=== PATIENT | female | born 1940 | race Native Hawaiian/Other Pacific Islander ===

== ENCOUNTER → 2017-10-01 | Outpatient (CLI) | payer MEDICARE, BC | END | disposition home or self-care (01) | LOC: CPPFTMAIN 13:53 | PROVIDERS: ATTEND Family Medicine | DX: J45.909 Unspecified asthma, uncomplicated (principal) | CPT/HCPCS: 80061; 84450; 84460; 94060; 94726; 94729 ==

== ENCOUNTER → 2018-03-18 | Outpatient (CLI) | payer MEDICARE, BC, OTHER ==
[~2018-03-18] MED LIST: REGADENOSON 0.4 MG/5 ML SYRINGE IV ONE
--- NOTE | 2018-03-18 12:41 | NM ---
EXAMINATION TYPE: NM stress lexiscan cardiolite DATE OF EXAM: 03/18/2018 COMPARISON: Previous exam 05/05/2010 HISTORY: Atypical chest pain TECHNIQUE: After the intravenous administration of 10.14 mCi Tc 99m Sestamibi - Cardiolite resting S PECT images acquired 45 minutes post injection. The patient received 0.4mg Lexiscan, 25.7 mCi Tc 99m Sestamibi - Stress images obtained [address] injection FINDINGS: Review of stress and rest SPECT images demonstrates some decreased reaffirms of uptake at the level o f the septum on stress as compared to rest images towards the base of the heart. Gated analysis shows normal wall motion with an estimated left ventricular ejection fraction of 59 %. IMPRESSION: Findings suggest pharmacologically induced left ventricular myocardial ischemia. A Yellow level critical message alert has been initiated for Jennifer Chiang MD via the [employer] Critical Results System on 03/18/2018 12:38 PM. This message alert has been sent to Jennifer reynolds MD via the preferences provided by the clinician for the receipt of Radiology Critical Finding s. Message ID [id number].
--- NOTE | 2018-03-19 09:10 | EST ---
EXERCISE STRESS AGE: 77 SEX: F HT: 4'10" WT: 200 PROTOCOL: Lexiscan. STAGE: DURATION OF EXERCISE: HEART RATE REST: 133/75 BLOOD PRESSURE REST: 123/75 MAXIMUM HEART RATE ACHIEVED: 71 MAXIMUM BLOOD PRESSURE: 123/75 85% MPHR: 120 100% MPHR: 141 METS: INDICATIONS: Chest pain. CLINICAL INFORMATION: STRESS DATA: Pretesting physical examination showed a heart rate of 51, pressure is 123/75 mmHg. Baseline EKG shows sinus mechanism. 0.4 mg of Lexiscan was given over 15 seconds per protocol. The max heart rate was 71 beats per minute and maximum pressure was 123/75 mmHg. Clinically the patient did not have any symptoms of chest pain or discomfort and the EKG did not show any significant ST or T-wave abnormalities concerning for ischemia. CONCLUSION: 1. Nondiagnostic electrocardiogram stress testing in response to Lexiscan. 2. Please follow up on the Cardiolite portion on separate report from radiology department. MMODL / IJN: [id number] /
--- NOTE | 2018-03-19 13:21 | ECHOF ---
Referral Reason:R07.89 Atypical chest pain MEASUREMENTS -------- HEIGHT: 127.0 cm WEIGHT: 88.9 kg BP: IVSd: 1.0 cm (0.6 - 1.1) LVIDd: 3.6 cm (3.9 - 5.3) LVPWd: 1.0 cm (0.6 - 1.1) IVSs: 1.4 cm LVIDs: 2.7 cm LVPWs: 1.2 cm LA Diam: 3.0 cm (2.7 - 3.8) MV EXCURSION: 12.495 mm (> 18.000) MV EF SLOPE: 57 mm/s (70 - 150) EPSS: 1.4 cm MV E Kuldeep: 0.56 m/s MV DecT: 345 ms MV A Kuldeep: 0.87 m/s MV E/A Ratio: 0.64 RAP: 5.00 mmHg RVSP: 11.86 mmHg FINDINGS -------- Sinus rhythm. This was a techncally difficult study with suboptimal views, , Lumason utilized for enhancement of im ages. The left ventricular size is normal. Left ventricular wall thickness is normal. Overall left vent ricular systolic function is normal with, an EF between 55 - 60 %. The right ventricle is normal in size. The left atrial size is normal. The right atrial size is normal. 5.0mg OF Lumason UTLIZED: 2 OR MORE WALL SEGMENTS NOT VISUALIZED. There is mild aortic valve sclerosis. There is no evidence of aortic regurgitation. Mild mitral annular calcification present. Mild mitral regurgitation is present. There is no evidence of pulmonary hypertension. The right ventricular systolic pressure, as measure d by Doppler, is 11.86mmHg. There is no pulmonic regurgitation present. The aortic root size is normal. Echo free space represents a pericardial fat pad. CONCLUSIONS -------- 1. This was a techncally difficult study with suboptimal views, , Lumason utilized for enhancement of images. 2. The left ventricular size is normal. 3. Left ventricular wall thickness is normal. 4. Overall left ventricular systolic function is normal with, an EF between 55 - 60 %. 5. The right ventricle is normal in size. 6. The left atrial size is normal. 7. The right atrial size is normal. 8. 5.0mg OF Lumason UTLIZED: 2 OR MORE WALL SEGMENTS NOT VISUALIZED. 9. There is mild aortic valve sclerosis. 10. Mild mitral annular calcification present. 11. Mild mitral regurgitation is present. 12. There is no evidence of pulmonary hypertension. 13. The right ventricular systolic pressure, as measured by Doppler, is 11.86mmHg. 14. There is no pulmonic regurgitation present. 15. The aortic root size is normal. 16. Echo free space represents a pericardial fat pad. REVENUE FIELD AUDITOR: Odilia Handley RDCS
== END | disposition home or self-care (01) ==
LOC: RADNMMAIN 07:59
PROVIDERS: ATTEND Family Medicine
DX: I34.0 Nonrheumatic mitral (valve) insufficiency (principal); I35.8 Other nonrheumatic aortic valve disorders; R07.89 Other chest pain; Z88.0 Allergy status to penicillin; Z88.2 Allergy status to sulfonamides; Z88.8 Allergy status to other drugs, medicaments and biological substances
CPT/HCPCS: 93017; 78452; C8929; A9500; J2785; Q9950; 93306

== ENCOUNTER 2018-04-09 06:23 | Day surgery (SDC) | payer MEDICARE, BC, OTHER ==
[~2018-04-09 06:23] MED LIST changes: +ALPRAZolam 0.25 MG TAB PO PRN; +ALPRAZolam 0.5 MG TAB PO PRN; +ASPIRIN 325 MG TAB PO STA; +ATORVASTATIN 80 MG TAB PO STA; +NITROGLYCERIN SL TABS 0.4 MG TAB SUBLINGUAL PRN; -REGADENOSON 0.4 MG/5 ML SYRINGE IV ONE; +SODIUM CHLORIDE 0.9% 1,000 ML in EMPTY BAG 1 BAG IV ONE
[2018-04-09] MEDS ORDERED: diphenhydrAMINE 50 MG/ML 1 ML VIAL ONE (07:05)
[2018-04-09] MEDS ORDERED: MIDAZOLAM 2 MG/2 ML VIAL ONE (07:05)
[2018-04-09] MEDS ORDERED: LIDOCAINE 1% INJ 10MG/ML (20 ML MDV) ONE (07:05)
[2018-04-09] MEDS ORDERED: LIDOCAINE 1% INJ 10MG/ML (20 ML MDV) SQ ONE (07:27)
[2018-04-09] MEDS ORDERED: MIDAZOLAM 2 MG/2 ML VIAL IV ONE (07:28)
[2018-04-09] MEDS ORDERED: diphenhydrAMINE 50 MG/ML 1 ML VIAL IVP ONE (07:28)
[2018-04-09] MEDS ORDERED: IOPAMIDOL-370 100ML BTL INJ ONE ×2 (07:43)
[2018-04-09] MEDS ORDERED: RX INFO: IV CONTRAST WAS GIVEN 1 EACH MISC MISCELLANE PRN (07:56)
[2018-04-09] MEDS ORDERED: SODIUM CHLORIDE 0.9% 1,000 ML IV SCH (08:00)
[2018-04-09 08:34] VITALS: RESP 18; TEMP 97.4
[2018-04-09 08:35] VITALS: BMI 41.0
--- NOTE | 2018-04-09 08:39 | CC ---
CARDIAC CATHETERIZATION REPORT DATE OF SERVICE: 04/09/2018 PROCEDURE: Left heart catheterization and coronary angiography. PERFORMED BY: Dr. Pepe Banerjee. Moderate conscious sedation, time was 22 minutes. CLINICAL INFORMATION: Mrs. De Los Santos is a 77-year-old lady with a known history of hypertension and hyperlipidemia, who has been having exertional shortness of breath and chest tightness. Her primary care physician, Dr. Jennifer Chiang, performed a stress test which revealed evidence of a moderate-sized ischemia and this was a Lexiscan stress test. The ischemia involved interventricular septum as well as the lateral wall. In view of this, she was advised cardiac catheterization. Risks, benefits, options, rationale were explained to the patient and family. PROCEDURE NOTE: Under local anesthesia and strict aseptic precautions, a 6-Libyan introducer was placed in the right femoral artery. Using standard Alexander catheters, I performed coronary angiography and a pigtail catheter was used to check pressures. LV gram was not performed. By echocardiogram, ejection fraction was 55% without pulmonary hypertension. The patient tolerated the procedure well. An Angio-Seal device was used to secure hemostasis and she was sent to the room in a stable condition. CARDIAC CATHETERIZATION FINDINGS: The left ventricle end-diastolic pressure was 22 mmHg and there was no gradient across the aortic valve. CORONARY ANGIOGRAPHY FINDINGS: RIGHT CORONARY ARTERY: Technically a dominant vessel has minor irregularities no significant disease. Proximally, there is about a 30% to 35% narrowing. In the midportion there is another 40% area of narrowing, but no critical stenosis detected. The mid RCA lesion is 40% and distally it gives off a larger PDA, smaller PLV, which have minor irregularities. The RCA therefore dominant has a 40% mid lesion. LEFT MAIN CORONARY ARTERY: This is a long patent disease-free vessel with mild calcification that bifurcates into LAD and circumflex. LEFT ANTERIOR DESCENDING CORONARY ARTERY: Good caliber vessel extends along the anterior wall gives off several septal and diagonal branches. In the proximal portion, gives off a diagonal branch that divides into 2 branches supplies a fair amount of myocardium and then the caliber of the LAD decreases and it sort of becomes intramyocardial giving off septal branches and distally comes out as a small branch that barely reaches the apex. LAD therefore has a good-sized diagonal branch that is free of significant disease. The distal LAD has diffuse noncritical disease and is not a large distribution vessel, but gives off several septal branches that have minor irregularities. LEFT POSTERIOR CIRCUMFLEX CORONARY ARTERY: Technically a nondominant vessel gives off a single obtuse marginal that distally continues as a secondary branch and also gives off a PLV branch. The circumflex has minor irregularities and the PLV branch comes off from the circumflex has no significant disease other than minor irregularities. LEFT VENTRICULOGRAM: This was not performed. FINAL IMPRESSION: This patient has calcified coronary arteries, a right-dominant system, elevated filling pressures, but no significant obstructive disease. There is a 40% mid RCA lesion and there is some diffuse disease in the distal LAD, but no significant lesions are noted. Filling pressures are however elevated. RECOMMENDATIONS: I am recommending that we continue current medical regimen. Her elevated filling pressures could be related to hypertensive heart disease. I will consider adding a small dose of Aldactone as an outpatient. But for now she will be discharged in the next 6 to 7 hours if she is stable and ambulatory and I will see her in the office on April 18. Continued medical therapy with risk factor modification is advised and patient does not have any significant obstructive CAD. MMODL / IJN: [id number] /
--- NOTE | 2018-04-09 08:39 | LTR ---
April 09, 2018 Re: Scotty De Los Santos Dear Dr. Chiang; Thank you for the opportunity to participate in the care of Mrs Scotty De Los Santos. Please find enclosed my cardiac cath report for your records. This lady has calcified coronary arteries with noncritical disease and a moderate 40% mid RCA lesion. Continued medical therapy with risk factor modification is advised. Her left ventricle end-diastolic pressure is elevated, this may reflect some diastolic dysfunction and hypertensive heart disease and I will consider adding a small dose of Aldactone after I see her in the office. Her creatinine is at the upper end of normal range. Thank you for your referral and please call for questions. With kindest regards. Sincerely yours, MD TOM Franks / MAICOLN: [id number] /
[2018-04-09 12:17] VITALS: BP 134/60; PULSE 57
== END 2018-04-09 15:15 | disposition home or self-care (01) ==
LOC: CATHCVL 06:23 → 3OBS 07:50 → CATHCVL 15:15
PROVIDERS: ATTEND Internal Medicine Interventional Cardiology
DX: I25.10 Atherosclerotic heart disease of native coronary artery without angina pectoris (principal); I25.84 Coronary atherosclerosis due to calcified coronary lesion; I10 Essential (primary) hypertension; F17.210 Nicotine dependence, cigarettes, uncomplicated; E78.5 Hyperlipidemia, unspecified; Z82.49 Family history of ischemic heart disease and other diseases of the circulatory system; E03.9 Hypothyroidism, unspecified; M17.0 Bilateral primary osteoarthritis of knee; E78.00 Pure hypercholesterolemia, unspecified; Z79.82 Long term (current) use of aspirin; Z79.890 Hormone replacement therapy; Z79.899 Other long term (current) drug therapy; Z88.0 Allergy status to penicillin; Z88.2 Allergy status to sulfonamides
CPT/HCPCS: 93458; C1760; C1894; C1769 ×2; J2250; J1200; J2001; Q9967

== ENCOUNTER → 2018-08-18 | Outpatient (CLI) | payer MEDICARE, BC, OTHER ==
[2018-08-18 19:10] LABS: Anion Gap 9.3 mmol/L (4.00-12.00); Calcium 9.5 mg/dL (8.7-10.3); Carbon Dioxide 26.7 mmol/L (21.6-31.8); Potassium 4.4 mmol/L (3.5-5.5)
== END | disposition home or self-care (01) ==
LOC: LABWHC1 13:42
PROVIDERS: ATTEND Internal Medicine Interventional Cardiology
DX: I25.10 Atherosclerotic heart disease of native coronary artery without angina pectoris (principal)
CPT/HCPCS: 36415; 80048

== ENCOUNTER → 2018-09-22 | Outpatient (CLI) | payer MEDICARE, BC, OTHER ==
[2018-09-22 22:00] LABS: Anion Gap 9.5 mmol/L (4.00-12.00); Calcium 9.8 mg/dL (8.7-10.3); Carbon Dioxide 30.5 mmol/L (21.6-31.8); Potassium 3.9 mmol/L (3.5-5.5)
== END | disposition home or self-care (01) ==
LOC: LABWHC1 10:05
PROVIDERS: ATTEND Internal Medicine Interventional Cardiology
DX: R60.0 Localized edema (principal)
CPT/HCPCS: 36415; 80048

== ENCOUNTER 2018-11-26 12:27 | Inpatient (IN) | payer MEDICARE, BC, OTHER ==
[2018-11-26] MEDS ORDERED: SODIUM CHLORIDE 0.9% 1,000 ML IV ONE ×2 (13:04)
[2018-11-26] MEDS ORDERED: MORPHINE SULFATE 4 MG/ML SYRINGE IVP STA (13:08)
--- NOTE | 2018-11-26 13:10 | ED ---
Fall HPI - General Source: EMS, RN notes reviewed, old records reviewed Mode of arrival: EMS <Val Valdez - Last Filed: 11/26/18 16:34> <Gold Fernando - Last Filed: 11/26/18 16:37> - General Chief Complaint: Fall Stated Complaint: Fall Time Seen by Provider: 11/26/18 12:31 - History of Present Illness Initial Comments: Patient is an 78-year-old female who presents emergency department today complains of falling on Saturday. Patient reports that she stepped on a back load tester, became startled fell to the ground. She cleans of bruising over her inner thighs and her arms. She attempted to crawl. Patient reports that she laid on the floor Saturday evening. Patient states the [employer] caregiver called her daughter who came to check on her. She fell and was unable to get up. Patient reports that she's having some back pain and landed on her back for the past 3 days. Patient states that she soiled herself. (Val Valdez) - Related Data Home Medications Medication Instructions Recorded Confirmed Albuterol Sulfate [Proair Hfa] 1 - 2 puff INHALATION RT-Q6H PRN 04/04/18 11/26/18 Atorvastatin [Lipitor] 20 mg PO DAILY 04/04/18 11/26/18 Bimatoprost [Lumigan .01% Ophth 1 drop BOTH EYES HS 04/04/18 11/26/18 Soln] Brimonidine Tartrate [Alphagan P 1 drops RIGHT EYE QAM 04/04/18 11/26/18 0.2% Ophth Soln] Cholecalciferol (Vitamin D3) 2,000 unit PO DAILY 04/04/18 11/26/18 [Vitamin D3] Dorzolamide HCl/Pf [Dorzolamide 2% 1 drop RIGHT EYE BID 04/04/18 11/26/18 Eye Drop] Levothyroxine Sodium [Synthroid] 75 mcg PO DAILY 04/04/18 11/26/18 Lidocaine 5% Patch [Lidoderm 5% 1 patch TOPICAL DAILY 04/04/18 11/26/18 Patch] Omeprazole [PriLOSEC] 40 mg PO DAILY 04/04/18 11/26/18 PARoxetine HCL 40 mg PO DAILY 04/04/18 11/26/18 Vits A,C,E/Lutein/Minerals 1 tab PO DAILY 04/04/18 11/26/18 [Ocuvite with Lutein Tablet] Zinc 50 mg PO DAILY 04/04/18 11/26/18 cycloSPORINE [Restasis] 1 applicator BOTH EYES BID PRN 04/04/18 11/26/18 Folic Acid 0.4 mg PO DAILY 11/26/18 11/26/18 Magnesium Oxide [Magox 400] 400 mg PO DAILY 11/26/18 11/26/18 Spironolactone [Aldactone] 25 mg PO DAILY 11/26/18 11/26/18 Turmeric Root Extract [Turmeric] 500 mg PO DAILY 11/26/18 11/26/18 buPROPion HCL [buPROPion HCL SR] 150 mg PO BID 11/26/18 11/26/18 metFORMIN HCL [Glucophage] 500 mg PO BID 11/26/18 11/26/18 Allergies Allergy/AdvReac Type Severity Reaction Status Date / Time Penicillins Allergy Rash/Hives Verified 11/26/18 13:59 Sulfa (Sulfonamide Allergy Rash/Hives Verified 11/26/18 13:59 Antibiotics) Review of Systems ROS Other: All systems not noted in ROS Statement are negative. <Val Valdez - Last Filed: 11/26/18 16:34> ROS Other: All systems not noted in ROS Statement are negative. <Gold Fernando - Last Filed: 11/26/18 16:37> ROS Statement: Those systems with pertinent positive or pertinent negative responses have been documented in the HPI. Past Medical History Past Medical History: Chest Pain / Angina, CVA/TIA, Diabetes Mellitus, Eye Disorder, GERD/Reflux, Hypertension, Osteoarthritis (OA), Thyroid Disorder Additional Past Medical History / Comment(s): glaucoma, blind left eye, states hx of silent TIA's, elva knee pain, hernia History of Any Multi-Drug Resistant Organisms: None Reported Past Surgical History: Back Surgery, Orthopedic Surgery Additional Past Surgical History / Comment(s): back metal/screws, eye sx for glaucoma, rt carpal tunnel, removal of benign cyst on ovary Past Anesthesia/Blood Transfusion Reactions: No Reported Reaction Past Psychological History: Anxiety, Depression Smoking Status: Former smoker Past Alcohol Use History: Rare Past Drug Use History: None Reported, Marijuana <Val Valdez - Last Filed: 11/26/18 16:34> General Exam Limitations: physical limitation General appearance: alert, in no apparent distress Head exam: Present: atraumatic, normocephalic, normal inspection Eye exam: Present: normal appearance, PERRL, EOMI. Absent: scleral icterus, conjunctival injection, periorbital swelling ENT exam: Present: normal exam, mucous membranes moist Neck exam: Present: normal inspection. Absent: tenderness, meningismus, l ymphadenopathy Respiratory exam: Present: normal lung sounds bilaterally. Absent: respiratory distress, wheezes, rales, rhonchi, stridor Cardiovascular Exam: Present: regular rate, normal rhythm GI/Abdominal exam: Present: soft, normal bowel sounds. Absent: distended, tenderness, guarding, rebound, rigid Extremities exam: Present: normal inspection, full ROM, normal capillary refill, other (Contusion noted over the right forearm. Small contusions over bilateral knees. She is full range motion about extremities.). Absent: tenderness, pedal edema, joint swelling, calf tenderness Back exam: Present: normal inspection Neurological exam: Present: alert, oriented X3, CN II-XII intact <Val Valdez - Last Filed: 11/26/18 16:34> - General Exam Comments Initial Comments: This is a generally weak 78-year-old female. Alert. No significant distress. (Val Valdez) Course Vital Signs 11/26/18 11/26/18 12:37 15:11 Temperature 100.3 F H Pulse Rate 94 79 Respiratory 18 18 Rate Blood Pressure 122/72 125/62 O2 Sat by Pulse 97 96 Oximetry Medical Decision Making - Lab Data Result diagrams: 11/26/18 13:10 11/26/18 13:10 - Radiology Data Radiology results: report reviewed <Val Valdez - Last Filed: 11/26/18 16:34> - Lab Data Result diagrams: 11/26/18 13:10 11/26/18 13:10 <Gold Fernando - Last Filed: 11/26/18 16:37> - Medical Decision Making Patient is an 78-year-old female who presents MRSA Department after a fall on Saturday. She laid on the ground the small space for the past 3-1/2 days. At this time Patient arrived to emergency Department after her daughter found her. Patient appears dehydrated. Patient has been given IV fluids labwork obtained. 2+ ketones in urine. CK is mildly elevated 800. Patient complains of some back pain. She is no significant contusion or ulcerations noted. At this time Patient will be admitted under Dr. Niño for IV hydration. She did have a low-grade temperature of 100.3. A did give the Patient 1 g of Rocephin at this time. Initially suspected the possibility of urinary tract infection she's been sitting and soiled clothes for the past 4 days. Urinalysis didn't show signs of infection. Chest x-ray was otherwise unremarkable. Patient does complain of back pain. X-rays of the thoracic and lumbar spinal be completed. (Val Valdez) Patient reevaluated by myself, status post fall with prolonged downtime, approximately 4 days. Patient appears dehydrated, laboratory studies do reflect dehydration with lactic acidosis as well as 2+ ketones on urinalysis. Case discussed with Dr. Niño, [facility] - Lab Data Lab Results 11/26/18 11/26/18 11/26/18 Range/Units 13:10 13:10 13:10 WBC 8.5 (3.8-10.6) k/uL RBC 4.40 (3.80-5.40) m/uL Hgb 13.2 (11.4-16.0) gm/dL Hct 40.6 (34.0-46.0) % MCV 92.3 (80.0-100.0) fL MCH 30.1 (25.0-35.0) pg MCHC 32.6 (31.0-37.0) g/dL RDW 13.3 (11.5-15.5) % Plt Count 214 (150-450) k/uL Neutrophils % 83 % Lymphocytes % 9 % Monocytes % 6 % Eosinophils % 1 % Basophils % 0 % Neutrophils # 7.1 (1.3-7.7) k/uL Lymphocytes # 0.8 L (1.0-4.8) k/uL Monocytes # 0.5 (0-1.0) k/uL Eosinophils # 0.1 (0-0.7) k/uL Basophils # 0.0 (0-0.2) k/uL PT 9.7 (9.0-12.0) sec INR 0.9 (<1.2) APTT 23.4 (22.0-30.0) sec Sodium 137 (137-145) mmol/L Potassium 4.2 (3.5-5.1) mmol/L Chloride 104 (98-107) mmol/L Carbon Dioxide 21 L (22-30) mmol/L Anion Gap 12 mmol/L BUN 20 H (7-17) mg/dL Creatinine 0.85 (0.52-1.04) mg/dL Est GFR (CKD-EPI)AfAm 75 (>60 ml/min/1.73 sqM) Est GFR (CKD-EPI)NonAf 65 (>60 ml/min/1.73 sqM) Glucose 160 H (74-99) mg/dL Plasma Lactic Acid Andi (0.7-2.0) mmol/L Calcium 9.1 (8.4-10.2) mg/dL Total Bilirubin 1.3 (0.2-1.3) mg/dL AST 59 H (14-36) U/L ALT 37 (9-52) U/L Alkaline Phosphatase 108 (38-126) U/L Creatine Kinase 865 H (30-135) U/L Troponin I (0.000-0.034) ng/mL Total Protein 6.8 (6.3-8.2) g/dL Albumin 3.9 (3.5-5.0) g/dL Urine Color Urine Appearance (Clear) Urine pH (5.0-8.0) Ur Specific [place] (1.001-1.035) Urine Protein (Negative) Urine Glucose (UA) (Negative) Urine Ketones (Negative) Urine Blood (Negative) Urine Nitrite (Negative) Urine Bilirubin (Negative) Urine Urobilinogen (<2.0) mg/dL Ur Leukocyte Esterase (Negative) 11/26/18 11/26/18 11/26/18 Range/Units 13:10 13:10 14:46 WBC (3.8-10.6) k/uL RBC (3.80-5.40) m/uL Hgb (11.4-16.0) gm/dL Hct (34.0-46.0) % MCV (80.0-100.0) fL MCH (25.0-35.0) pg MCHC (31.0-37.0) g/dL RDW (11.5-15.5) % Plt Count (150-450) k/uL Neutrophils % % Lymphocytes % % Monocytes % % Eosinophils % % Basophils % % Neutrophils # (1.3-7.7) k/uL Lymphocytes # (1.0-4.8) k/uL Monocytes # (0-1.0) k/uL Eosinophils # (0-0.7) k/uL Basophils # (0-0.2) k/uL PT (9.0-12.0) sec INR (<1.2) APTT (22.0-30.0) sec Sodium (137-145) mmol/L Potassium (3.5-5.1) mmol/L Chloride (98-107) mmol/L Carbon Dioxide (22-30) mmol/L Anion Gap mmol/L BUN (7-17) mg/dL Creatinine (0.52-1.04) mg/dL Est GFR (CKD-EPI)AfAm (>60 ml/min/1.73 sqM) Est GFR (CKD-EPI)NonAf (>60 ml/min/1.73 sqM) Glucose (74-99) mg/dL Plasma Lactic Acid Andi 2.2 H* (0.7-2.0) mmol/L Calcium (8.4-10.2) mg/dL Total Bilirubin (0.2-1.3) mg/dL AST (14-36) U/L ALT (9-52) U/L Alkaline Phosphatase (38-126) U/L Creatine Kinase (30-135) U/L Troponin I 0.013 (0.000-0.034) ng/mL Total Protein (6.3-8.2) g/dL Albumin (3.5-5.0) g/dL Urine Color Yellow Urine Appearance Clear (Clear) Urine pH 7.0 (5.0-8.0) Ur Specific [place] 1.019 (1.001-1.035) Urine Protein Trace H (Negative) Urine Glucose (UA) Negative (Negative) Urine Ketones 2+ H (Negative) Urine Blood Negative (Negative) Urine Nitrite Negative (Negative) Urine Bilirubin Negative (Negative) Urine Urobilinogen <2.0 (<2.0) mg/dL Ur Leukocyte Esterase Negative (Negative) 11/26/18 15:41 EKG performed at 2151 shows sinus rhythm with occasional PVCs otherwise normal EKG. 90 bpm. NC interval is 152 ms. QS duration 72 ms. QT QTc is 390/477 ms. (Val Valdez) - Radiology Data CT shows chronic changes and cut him medically without suspicious infiltrate. CT shows no acute hemorrhage or midline shift. Mild diffuse age-related cerv ical atrophy noted. (Val Valdez) Disposition Is patient prescribed a controlled substance at d/c from ED?: No Time of Disposition: 16:36 <Val Valdez - Last Filed: 11/26/18 16:34> <Gold Fernando - Last Filed: 11/26/18 16:37> Clinical Impression: Fall, Dehydration Disposition: ADMITTED IP TO THIS HOSP Condition: Stable Referrals: Jennifer Chiang MD [Primary Care Provider] - 1-2 days
[2018-11-26 13:36] LABS: Basophils % (A) 0 %; Eosinophils # (A) 0.1 k/uL (0-0.7); Eosinophils % (A) 1 %; HCT 40.6 % (34.0-46.0); HGB 13.2 gm/dL (11.4-16.0); Lymphocytes # (A) 0.8 k/uL (1.0-4.8); Lymphocytes % (A) 9 %; MCH 30.1 pg (25.0-35.0); MCHC 32.6 g/dL (31.0-37.0); MCV 92.3 fL (80.0-100.0); Mean Platelet Volume 7.2; Monocytes # (A) 0.5 k/uL (0-1.0); Monocytes % (A) 6 %; Neutrophils # (A) 7.1 k/uL (1.3-7.7); Neutrophils % (A) 83 %; Platelet Count 214 k/uL (150-450); RDW 13.3 % (11.5-15.5); WBC 8.5 k/uL (3.8-10.6)
[2018-11-26 13:42] LABS: INR 0.9 (<1.2); Partial Thromboplastin Time 23.4 sec (22.0-30.0); Prothrombin Time 9.7 sec (9.0-12.0)
[2018-11-26 13:45] LABS: Albumin 3.9 g/dL (3.5-5.0); Calcium 9.1 mg/dL (8.4-10.2); Total Bilirubin 1.3 mg/dL (0.2-1.3); Total Protein 6.8 g/dL (6.3-8.2)
[2018-11-26 13:47] LABS: Potassium 4.2 mmol/L (3.5-5.1)
[2018-11-26] MEDS ORDERED: cefTRIAXone IN SWFI 1,000 MG/10 ML SYRINGE IVP STA (14:07)
--- NOTE | 2018-11-26 14:07 | CT ---
EXAMINATION TYPE: CT brain wo con DATE OF EXAM: 11/26/2018 HISTORY: Fall injury with headache. CT DLP: 1086.4 mGycm. Automated Exposure Control for Dose Reduction was Utilized. TECHNIQUE: CT scan of the head is performed without contrast. COMPARISON: None. FINDINGS: There is no acute intracranial hemorrhage or midline shift identified. There is diffuse v entricular and sulcal prominence consistent with diffuse age-related cerebral atrophy. Chung white ma tter differentiation is maintained. Nasal septum is deviated to left of midline. The globes are int act and the visualized sinuses are clear. Vascular calcification is seen distal internal carotid art eries. IMPRESSION: No acute intracranial hemorrhage or midline shift. There is mild diffuse age-related ce rebral atrophy noted.
[2018-11-26 14:56] LABS: Appearance,Urine Clear (Clear); Bilirubin,Urine Negative (Negative); Blood,Urine Negative (Negative); Color,Urine Yellow; Glucose,Urine (UA) Negative (Negative); Ketones,Urine 2+ (Negative); Leukocyte Esterase,Urine Negative (Negative); Nitrite,Urine Negative (Negative); Protein,Urine Trace (Negative); Specific Gravity,Urine 1.019 (1.001-1.035); Urobilinogen,Urine <2.0 mg/dL (<2.0)
[2018-11-26] MEDS ORDERED: ACETAMINOPHEN TAB 500 MG TAB PO STA (15:01)
[2018-11-26] MEDS ORDERED: ACET/COD 300 MG/30 MG STARTER PACK 6 TAB BTL PO STA (15:01)
--- NOTE | 2018-11-26 15:04 | XR ---
EXAMINATION TYPE: XR chest 2V DATE OF EXAM: 11/26/2018 COMPARISON: NONE HISTORY: Fall injury with weakness and pain TECHNIQUE: Frontal and lateral views of the chest are obtained. FINDINGS: There is chronic parenchymal change suspected bilaterally with anterior right mid lung ate lectasis on lateral view. No pleural effusion or pneumothorax is appreciated bilaterally. The cardiac silhouette size is enlarged with atherosclerotic and ectatic aorta causing tracheal deviation to the right. The osseous structures are somewhat demineralized. IMPRESSION: Chronic changes and cardiomegaly without suspicious acute infiltrate.
--- NOTE | 2018-11-26 16:36 | XR ---
PROCEDURE: XR pelvis AP view - 1V DATE AND TIME: 11/26/2018 4:31 PM CLINICAL INDICATION: PHH; Pain TECHNIQUE: AP view COMPARISON: None FINDINGS: There is no fracture or malalignment. The soft tissues are unremarkable. IMPRESSION: NO ACUTE PROCESS.
[2018-11-26] MEDS ORDERED: HYDROmorphone 0.5 MG/0.5 ML SYRINGE IVP PRN (16:37)
[2018-11-26] MEDS ORDERED: IBUPROFEN 400 MG TAB PO PRN (16:37)
[2018-11-26] MEDS ORDERED: MORPHINE SULFATE 4 MG/ML SYRINGE IV PRN (16:37)
[2018-11-26] MEDS ORDERED: NALOXONE 0.4 MG/ML 1 ML VIAL IV PRN (16:37)
[2018-11-26] MEDS ORDERED: ACETAMINOPHEN TAB 325 MG TAB PO PRN (16:37)
[2018-11-26] MEDS ORDERED: ONDANSETRON 4 MG/2 ML VIAL IVP PRN (16:37)
--- NOTE | 2018-11-26 16:40 | XR ---
PROCEDURE: XR lumbar spine 2V DATE AND TIME: 11/26/2018 4:31 PM CLINICAL INDICATION: PHH; Pain TECHNIQUE: AP and crosstable lateral views COMPARISON: None FINDINGS: There is no fracture or malalignment. The pedicle fixation orthopedic L4-5 hardware is intact. No periprosthesis lucency. Lumbar spondylosis changes are noted at all levels, perhaps most advanced at the L3-4 level. The soft tissues are unremarkable. IMPRESSION: NO ACUTE PROCESS.
--- NOTE | 2018-11-26 16:45 | XR ---
PROCEDURE: XR thoracic spine 2V DATE AND TIME: 11/26/2018 4:31 PM CLINICAL INDICATION: PHH; Pain TECHNIQUE: AP and crosstable lateral views COMPARISON: None FINDINGS: The frontal radiograph is RPO rotated. There is no fracture or malalignment. No pneumothorax. Paraspinal soft tissues unremarkable. IMPRESSION: Negative for fracture or malalignment.
[2018-11-26] MEDS ORDERED: IPRATROPIUM-ALBUTEROL 3 ML NEB INHALATION PRN (18:15)
[2018-11-26] MEDS: SODIUM CHLORIDE 0.9% 1,000 ML IV SCH (18:21)
--- NOTE | 2018-11-26 18:25 | P.HPIM ---
History of Present Illness H&P Date: 11/26/18 Chief Complaint: fall at home 78-year-old female with history of hypothyroid, multiple TIAs, diabetes mellitus on metformin, hypertension. Patient lives alone, it seems like she sustained a mechanical fall on Saturday she uses a walker to ambulate however she can take it into the bathroom where she slipped and fell and couldn't get up she tried but she felt weak. She sta yed on the floor for 4 days until today when [employer] ladkarmen found her and notified her daughter. She was brought to the hospital. Patient reports that she was left without eating or drinking laying down on the floor trying to crawl she couldn't get up on her own. She wasn't taking any of her medications. She feels sore all over with generalized weakness. She soiled her clothes with fece s and urine.. Otherwise she denies any fevers chills denies any chest pain or trouble breathing denies any focal neurologic deficits changes in her vision or hearing. Patient was seen and evaluated the medical floor with her family at bedside. She denies any other complaints. Family interested in evaluating the patient to determine the best site of care posthospitalization. All imaging studies in the ER was unremarkable without any evidence of acute fractures. Review of Systems Pertinent positives as noted in HPI. All other systems were reviewed and are negative Past Medical History Past Medical History: Chest Pain / Angina, CVA/TIA, Diabetes Mellitus, Eye Disorder, GERD/Reflux, Hypertension, Osteoarthritis (OA), Thyroid Disorder Additional Past Medical History / Comment(s): glaucoma, blind left eye, states hx of silent TIA's, elva knee pain, hernia History of Any Multi-Drug Resistant Organisms: None Reported Past Surgical History: Back Surgery, Orthopedic Surgery Additional Past Surgical History / Comment(s): back metal/screws, eye sx for glaucoma, rt carpal tunnel, removal of benign cyst on ovary Past Anesthesia/Blood Transfusion Reactions: No Reported Reaction Past Psychological History: Anxiety, Depression Smoking Status: Former smoker Past Alcohol Use History: Rare Past Drug Use History: None Reported, Marijuana Medications and Allergies Home Medications Medication Instructions Recorded Confirmed Type Albuterol Sulfate [Proair Hfa] 1 - 2 puff INHALATION RT-Q6H PRN 04/04/18 11/26/18 History Atorvastatin [Lipitor] 20 mg PO DAILY 04/04/18 11/26/18 History Bimatoprost [Lumigan .01% Ophth 1 drop BOTH EYES HS 04/04/18 11/26/18 History Soln] Brimonidine Tartrate [Alphagan P 1 drops RIGHT EYE QAM 04/04/18 11/26/18 History 0.2% Ophth Soln] Cholecalciferol (Vitamin D3) 2,000 unit PO DAILY 04/04/18 11/26/18 History [Vitamin D3] Dorzolamide HCl/Pf [Dorzolamide 2% 1 drop RIGHT EYE BID 04/04/18 11/26/18 History Eye Drop] Levothyroxine Sodium [Synthroid] 75 mcg PO DAILY 04/04/18 11/26/18 History Lidocaine 5% Patch [Lidoderm 5% 1 patch TOPICAL DAILY 04/04/18 11/26/18 History Patch] Omeprazole [PriLOSEC] 40 mg PO DAILY 04/04/18 11/26/18 History PARoxetine HCL 40 mg PO DAILY 04/04/18 11/26/18 History Vits A,C,E/Lutein/Minerals 1 tab PO DAILY 04/04/18 11/26/18 History [Ocuvite with Lutein Tablet] Zinc 50 mg PO DAILY 04/04/18 11/26/18 History cycloSPORINE [Restasis] 1 applicator BOTH EYES BID PRN 04/04/18 11/26/18 History Folic Acid 0.4 mg PO DAILY 11/26/18 11/26/18 History Magnesium Oxide [Magox 400] 400 mg PO DAILY 11/26/18 11/26/18 History Spironolactone [Aldactone] 25 mg PO DAILY 11/26/18 11/26/18 History Turmeric Root Extract [Turmeric] 500 mg PO DAILY 11/26/18 11/26/18 History buPROPion HCL [buPROPion HCL SR] 150 mg PO BID 11/26/18 11/26/18 History metFORMIN HCL [Glucophage] 500 mg PO BID 11/26/18 11/26/18 History Allergies Allergy/AdvReac Type Severity Reaction Status Date / Time Penicillins Allergy Rash/Hives Verified 11/26/18 13:59 Sulfa (Sulfonamide Allergy Rash/Hives Verified 11/26/18 13:59 Antibiotics) Physical Exam Vitals: Vital Signs Temp Pulse Resp BP Pulse Ox 11/26/18 15:11 79 18 125/62 96 11/26/18 12:37 100.3 F H 94 18 122/72 97 Intake and Output 11/26/18 11/26/18 11/26/18 06:59 14:59 22:59 Other: Weight 88.451 kg Constitutional: No acute distress, conversant, pleasant Eyes: Anicteric sclerae, moist conjunctiva, no lid-lag Pupils equal round reactive to light ENMT: NC/AT Oropharynx clear, no erythema, or exudates. Patient wears upper dentures Neck: Supple, FROM, no masses, or JVD No carotid bruits No thyromegaly Lungs: Clear to auscultation Clear to percussion Normal respiratory effort, no accessory muscle use Cardiovascular: Heart regular in rate and rhythm, No murmurs, gallops, or rubs No peripheral edema Abdominal: Soft Nontender, no guarding, rebound or rigidity Abdomen moving with respiration Normoactive bowel sounds No hepatomegaly, No splenomegaly No palpable mass Right-sided abdominal wall hernia Skin: Normal temperature, tone, texture, turgor No induration No subcutaneous nodules No rash, lesions No ulcers Extremities: Multiple bruising over bilateral upper and lower extremities No digital cyanosis No clubbing Pedal pulses intact and symmetrical Radial pulses intact and symmetrical No calf tenderness Psychiatric: Alert and oriented to person, place and time Appropriate affect fair judgment Neuro Muscles Strength 3/5 in bilateral lower extremities , 4/5 over bilateral upper extremites Sensation to light touch grossly present throughout Cranial nerves II-XII grossly intact No focal sensory deficits Lymphatics: no palpable cervical or supraclavicular , or inguinal lymph nodes Results CBC & Chem 7: 11/26/18 13:10 11/26/18 13:10 Labs: Abnormal Lab Results - Last 24 Hours (Table) 11/26/18 11/26/18 11/26/18 Range/Units 13:10 13:10 13:10 Lymphocytes # 0.8 L (1.0-4.8) k/uL Carbon Dioxide 21 L (22-30) mmol/L BUN 20 H (7-17) mg/dL Glucose 160 H (74-99) mg/dL Plasma Lactic Acid Andi 2.2 H* (0.7-2.0) mmol/L AST 59 H (14-36) U/L Creatine Kinase 865 H (30-135) U/L Urine Protein (Negative) Urine Ketones (Negative) 11/26/18 Range/Units 14:46 Lymphocytes # (1.0-4.8) k/uL Carbon Dioxide (22-30) mmol/L BUN (7-17) mg/dL Glucose (74-99) mg/dL Plasma Lactic Acid Andi (0.7-2.0) mmol/L AST (14-36) U/L Creatine Kinase (30-135) U/L Urine Protein Trace H (Negative) Urine Ketones 2+ H (Negative) Assessment and Plan Assessment: 78-year-old female with history of multiple TIAs hypertension and diabetes. Admitted under observation with anticipated length of stay less than 48 hours due to sustaining a mechanical fall at home with no injuries, patient spent 4 days on the floor and couldn't get up until found today. She has mild elevation of creatinine kinase she will be monitored with repeated serial labs rule out acute rhabdo. Patient will get hydrated and monitored for 24 hours evaluated by PT/OT and social media sr strategy manager for discharge planning. Patient ambulate using a walker at home and she lives alone. Plan: Dehydration mechanical fall without injury elevated Creatine Kinase, r/o rhabdo IVF hydration monitor renal and liver function monitor CK level pain control fall precaution s PT/OT social media sr strategy manager for discharge planning chronic Diabetes mellitus, insulin sliding scale hypertension , continue home meds h/o TIA, ASA hypothyroid, continue levothyroxin DVT PPX, heparin sc tid Preformed a thorough record review from recent hospitalization LVEF 55-60% Surrogate decision-maker: patient daughter CODE STATUS:full code Discussed with: Patient, ER, RN Anticipated discharge: <[address]: pending PT evaluation home with health care, vs SNF A total of 60 minutes was spent on the care of this complex patient more than 50% of the time was spent in counseling and care coordination.
[2018-11-26] MEDS: LATANOPROST 0.005% OPHTH DROPS 2.5 ML BTL BOTH EYES SCH (20:27)
[2018-11-26] MEDS: buPROPion SR 150 MG TABLET.ER PO SCH (20:29)
[2018-11-26 21:03] LABS: Glucose,Whole Blood 166 mg/dL (75-99)
[2018-11-26] MEDS: INSULIN ASPART (NovoLOG) 100 UNIT/ML VIAL SQ SCH (21:16)
[2018-11-26] MEDS: HEPARIN SODIUM,PORCINE 5,000 UNIT/ML 1 ML VIAL SQ SCH (23:44)
[2018-11-27] MEDS: SODIUM CHLORIDE 0.9% 1,000 ML IV SCH ×3 (03:53→16:13)
[2018-11-27] MEDS: LEVOTHYROXINE 75 MCG TAB PO SCH (05:06)
[2018-11-27 07:09] LABS: Glucose,Whole Blood 91 mg/dL (75-99)
[2018-11-27] MEDS: INSULIN ASPART (NovoLOG) 100 UNIT/ML VIAL SQ SCH ×4 (07:12→21:26)
[2018-11-27] MEDS: HEPARIN SODIUM,PORCINE 5,000 UNIT/ML 1 ML VIAL SQ SCH ×3 (07:50→23:13)
[2018-11-27] MEDS: PARoxetine 20 MG TAB PO SCH (07:50)
[2018-11-27] MEDS: buPROPion SR 150 MG TABLET.ER PO SCH ×2 (07:51→20:49)
[2018-11-27] MEDS: PANTOPRAZOLE 40 MG TABLET PO SCH (07:51)
[2018-11-27] MEDS: ATORVASTATIN 20 MG TAB PO SCH (07:51)
[2018-11-27 09:06] LABS: Basophils % (A) 0 %; Eosinophils # (A) 0.2 k/uL (0-0.7); Eosinophils % (A) 4 %; HGB 11.8 gm/dL (11.4-16.0); Lymphocytes # (A) 1.8 k/uL (1.0-4.8); Lymphocytes % (A) 29 %; MCH 30.9 pg (25.0-35.0); MCHC 32.7 g/dL (31.0-37.0); MCV 94.4 fL (80.0-100.0); Mean Platelet Volume 7.8; Monocytes # (A) 0.4 k/uL (0-1.0); Monocytes % (A) 7 %; Neutrophils # (A) 3.6 k/uL (1.3-7.7); Neutrophils % (A) 58 %; Platelet Count 189 k/uL (150-450); RBC 3.81 m/uL (3.80-5.40); RDW 13.8 % (11.5-15.5); WBC 6.2 k/uL (3.8-10.6)
[2018-11-27 09:29] LABS: Potassium 3.9 mmol/L (3.5-5.1)
[2018-11-27 09:30] LABS: Albumin 3.4 g/dL (3.5-5.0); Calcium 8.4 mg/dL (8.4-10.2); Total Bilirubin 0.7 mg/dL (0.2-1.3); Total Protein 6.1 g/dL (6.3-8.2)
[2018-11-27 11:49] LABS: Glucose,Whole Blood 124 mg/dL (75-99)
--- NOTE | 2018-11-27 13:25 | P.PN ---
Subjective Progress Note Date: 11/27/18 Principal diagnosis: follow up for possible rhabdo, generalized weakness, debility , and fall patient seen and examined, again denies any focal neuro deficits. she is complaining of lower back pain, acute on chronic, LSS xray showed no acute fractures denies any chest pain , or trouble breathing denies any fever or chills . Objective - Vital Signs Vital signs: Vital Signs Temp 98.6 F 11/27/18 07:00 Pulse 77 11/27/18 07:00 Resp 16 11/27/18 07:00 BP 122/70 11/27/18 07:00 Pulse Ox 94 L 11/27/18 07:00 Intake & Output 11/26/18 11/27/18 11/27/18 18:59 06:59 18:59 Intake Total 1200 296 Output Total 700 Balance 500 296 Weight 88.451 kg Intake: Oral 1200 296 Output: Urine 700 Straight 700 - Exam Constitutional: vital signs stable, Not in acute distress, pleasant, conversant Lungs: Clear to auscultation bilaterally, clear to percussion, normal respiratory effort no use of accessory muscles Cardiovascular: Regular rate and rhythm, no murmurs, no gallops, no rubs, no peripheral edema Gastrointestinal: Soft, no tenderness to palpation, no palpable hepatosplenomegally, bowel sounds positive, no abdominal wall hernias Extremities: No digital cyanosis or clubbing, peripheral pulses palpable and e qual over bilateral radial arteries and dorsalis pedis artery, no calf muscle tenderness Psych: Alert, oriented to place, person and time, appropriate affect, intact judgment Neuro: strength on lower extremities 3/5 distal and proximal muscle groups, limitations due to chronic knee pain , sensation is intact. strength in upper extremities is 4/5 . tenderness over palpation of the lumbar paraspinal muscles. sensation to light touch over upper extremities is intact. - Labs CBC & Chem 7: 11/27/18 08:01 11/27/18 08:01 Labs: Abnormal Lab Results - Last 24 Hours (Table) 11/26/18 11/26/18 11/26/18 Range/Units 13:10 13:10 13:10 Lymphocytes # 0.8 L (1.0-4.8) k/uL Chloride (98-107) mmol/L Carbon Dioxide 21 L (22-30) mmol/L BUN 20 H (7-17) mg/dL Glucose 160 H (74-99) mg/dL POC Glucose (mg/dL) (75-99) mg/dL Plasma Lactic Acid Andi 2.2 H* (0.7-2.0) mmol/L AST 59 H (14-36) U/L Creatine Kinase 865 H (30-135) U/L Total Protein (6.3-8.2) g/dL Albumin (3.5-5.0) g/dL Urine Protein (Negative) Urine Ketones (Negative) 11/26/18 11/26/18 11/27/18 Range/Units 14:46 21:00 08:01 Lymphocytes # (1.0-4.8) k/uL Chloride 111 H (98-107) mmol/L Carbon Dioxide 21 L (22-30) mmol/L BUN (7-17) mg/dL Glucose (74-99) mg/dL POC Glucose (mg/dL) 166 H (75-99) mg/dL Plasma Lactic Acid Andi (0.7-2.0) mmol/L AST 46 H (14-36) U/L Creatine Kinase 675 H (30-135) U/L Total Protein 6.1 L (6.3-8.2) g/dL Albumin 3.4 L (3.5-5.0) g/dL Urine Protein Trace H (Negative) Urine Ketones 2+ H (Negative) 11/27/18 Range/Units 11:37 Lymphocytes # (1.0-4.8) k/uL Chloride (98-107) mmol/L Carbon Dioxide (22-30) mmol/L BUN (7-17) mg/dL Glucose (74-99) mg/dL POC Glucose (mg/dL) 124 H (75-99) mg/dL Plasma Lactic Acid Andi (0.7-2.0) mmol/L AST (14-36) U/L Creatine Kinase (30-135) U/L Total Protein (6.3-8.2) g/dL Albumin (3.5-5.0) g/dL Urine Protein (Negative) Urine Ketones (Negative) Microbiology - Last 24 Hours (Table) 11/26/18 14:46 Urine Culture - Preliminary Urine,Catheterized Assessment and Plan Assessment: 78-year-old female with history of multiple TIAs hypertension and diabetes. Admitted under observation with anticipated length of stay less than 48 hours due to sustaining a mechanical fall at home with no injuries, patient spent 4 days on the floor and couldn't get up until found today. She has mild elevation of creatinine kinase she will be monitored with repeated serial labs rule out acute rhabdo. Patient will get hydrated and monitored for 24 hours evaluated by PT/OT and social services director for discharge planning. Patient ambulate using a walker at home and she lives alone. 11/27 patient participated with PT , who recommended rehab placement due to debility , and generalized weakness. patient current living arrangements is not safe for her for independant living, due to having multiple levels , and patient struggles with using stairs. labs unremarkable today, renal function stable , creatine kinase trending down. vital signs stable . patient will be switched for inpatient status , in order to be placed at rehab facility Plan: debility and generalized weaknesss due to advanced age, and spending 3-4 days stranded alone at home laying on the floor secondary to a fall. Dehydration mechanical fall without injury elevated Creatine Kinase, improving now IVF hydration monitor renal and liver function monitor CK level, trending down pain control fall precautions PT/OT social services director for discharge planning , patient will need placement at rehab chronic Diabetes mellitus, insulin sliding scale hypertension , continue home meds h/o TIA, ASA hypothyroid, continue levothyroxin DVT PPX, heparin sc tid plan for placement at rehab facility
[2018-11-27] MEDS ORDERED: HYDROcodone/APAP 5-325MG 1 EACH TAB PO PRN (13:26)
[2018-11-27] MEDS: KETOROLAC 30 MG/ML 1 ML VIAL IVP SCH ×2 (16:13→23:12)
[2018-11-27 16:49] LABS: Glucose,Whole Blood 143 mg/dL (75-99)
[2018-11-27] MEDS: LATANOPROST 0.005% OPHTH DROPS 2.5 ML BTL BOTH EYES SCH (20:49)
[2018-11-27 21:21] LABS: Glucose,Whole Blood 142 mg/dL (75-99)
[2018-11-28] MEDS: KETOROLAC 30 MG/ML 1 ML VIAL IVP SCH ×4 (05:32→23:20)
[2018-11-28] MEDS: LEVOTHYROXINE 75 MCG TAB PO SCH (05:32)
[2018-11-28] MEDS: SODIUM CHLORIDE 0.9% 1,000 ML IV SCH (05:32)
[2018-11-28 07:11] LABS: Glucose,Whole Blood 106 mg/dL (75-99)
[2018-11-28] MEDS: PANTOPRAZOLE 40 MG TABLET PO SCH (08:06)
[2018-11-28] MEDS: PARoxetine 20 MG TAB PO SCH (08:06)
[2018-11-28] MEDS: HEPARIN SODIUM,PORCINE 5,000 UNIT/ML 1 ML VIAL SQ SCH ×3 (08:06→23:20)
[2018-11-28] MEDS: ATORVASTATIN 20 MG TAB PO SCH (08:06)
[2018-11-28] MEDS ORDERED: CYCLOBENZAPRINE 5 MG TAB PO PRN (08:35)
[2018-11-28] MEDS: INSULIN ASPART (NovoLOG) 100 UNIT/ML VIAL SQ SCH ×4 (08:37→21:23)
--- NOTE | 2018-11-28 08:45 | P.PN ---
Subjective Progress Note Date: 11/28/18 Principal diagnosis: Low back pain, headache Patient was seen and examined. No acute events overnight. Patient reports lower back pain, chronic, 8 out of 10 in severity. Patient reports back pain to be bandlike, nonradiating. She also reports bilateral knee pain, associated with severe osteoarthritis. No bladder or bowel incontinence. No saddle anesthesia. She denies chest pain, shortness of breath or palpitations. Tolerating diet well. No changes in urination or bowel habits. Patient also complains of frontal headache. Patient reports a history of seasonal ALLERGIES. Describes the headache as wearing a tight hat. States she uses Mucinex and Benadryl at home for ALLERGIES. She denies any fever or chills. She denies any stiff neck. Objective - Vital Signs Vital signs: Vital Signs Temp 97.9 F 11/28/18 07:00 Pulse 67 11/28/18 07:00 Resp 14 11/28/18 07:00 BP 116/54 11/28/18 07:00 Pulse Ox 94 L 11/28/18 07:00 Intake & Output 11/27/18 11/28/18 11/28/18 18:59 06:59 18:59 Intake Total 1628 Balance 1628 Intake: IV 800 Sodium Chloride 0.9% 1, 800 000 ml @ 100 mls/hr IV . Q10H ONE Rx#:[id number] Oral 828 Other: Voiding Method Bedside Commode # Voids 1 - Exam General: [non toxic], [no distress], [appears at stated age] Derm: [warm], [dry] Head: [atraumatic], [normocephalic], [symmetric], [fullness of the frontal maxillary sinuses] Eyes: [EOMI], [no lid lag], [anicteric sclera] Mouth: [no lip lesion], [mucus membranes moist] Cardiovascular: [S1S2 reg], [no murmur], [positive DP pulse bilateral] Lungs: [CTA bilateral], [no rhonchi, no rales] , [no accessory muscle use] Abdominal: [soft], [ nontender to palpation], [no guarding], [no appreciable organomegaly] Ext: [no gross muscle atrophy], [no edema], [no contractures], [right lower extremity 3 out of 5, left lower extremity 4 out of 5 strength due to pain], [tenderness of the paraspinal muscles bilaterally] Neuro: [no focal neuro deficits] Psych: [Alert], [oriented], [appropriate affect] - Labs CBC & Chem 7: 11/27/18 08:01 11/27/18 08:01 Labs: Abnormal Lab Results - Last 24 Hours (Table) 11/27/18 11/27/18 11/27/18 Range/Units 08:01 11:37 16:37 Chloride 111 H (98-107) mmol/L Carbon Dioxide 21 L (22-30) mmol/L POC Glucose (mg/dL) 124 H 143 H (75-99) mg/dL AST 46 H (14-36) U/L Creatine Kinase 675 H (30-135) U/L Total Protein 6.1 L (6.3-8.2) g/dL Albumin 3.4 L (3.5-5.0) g/dL 11/27/18 11/28/18 Range/Units 21:10 07:00 Chloride (98-107) mmol/L Carbon Dioxide (22-30) mmol/L POC Glucose (mg/dL) 142 H 106 H (75-99) mg/dL AST (14-36) U/L Creatine Kinase (30-135) U/L Total Protein (6.3-8.2) g/dL Albumin (3.5-5.0) g/dL Microbiology - Last 24 Hours (Table) 11/26/18 14:46 Urine Culture - Final Urine,Catheterized 11/26/18 14:34 Blood Culture - Preliminary Blood No Growth after 24 hours Assessment and Plan Assessment: Assessment and Plan Headache Debility and generalized weakness due to advanced age, spent 3-4 days alone at home on the floor Chronic lower back pain Elevated creatinine kinase Elevated AST Elevated BUN, likely secondary to dehydration, resolved Hypothyroidism Glaucoma Diabetes mellitus History of TIA Depression Possible ALLERGIC rhinitis. Trial of Flonase and Claritin. Pain management with Tylenol, Toradol. Avoid opiates for headache. Due to chronic lower back pain, multiple spinal surgeries. PTOT recommending rehab. Patient agreeable, geriatric social work professor consult. Lumbar strain on physical exam. Pain management with Tylenol, Toradol or [place]. Add Flexeril and lidocaine patch. Likely from fall, prolonged. CPK 675. Renal function within normal limits. DC IVF and encourage by mouth hydration follow CPK. AST 46. Possibly fatty liver. Continue Lipitor. BUN 20 on admission, now resolved. Discontinue IVF and encourage by mouth hydration. Continue Synthroid. Continue latanoprost. Insulin sliding scale. Continue Lipitor. Restart aspirin. Protonix for GI prophylaxis given aspirin and Toradol use. Continue bupropion and paroxetine. Patient admitted for fall. Social work consult for rehab.
[2018-11-28] MEDS: buPROPion SR 150 MG TABLET.ER PO SCH ×2 (10:10→21:23)
[2018-11-28] MEDS: LORATADINE 10 MG TAB PO SCH (10:10)
[2018-11-28] MEDS: ASPIRIN 81 MG PO SCH (10:10)
[2018-11-28 11:40] LABS: Calcium 8.8 mg/dL (8.4-10.2); Potassium 4.1 mmol/L (3.5-5.1)
[2018-11-28] MEDS: FLUTICASONE 50MCG/SPRAY NASAL 16GM EA NOSTRIL SCH (12:08)
[2018-11-28] MEDS: LIDOCAINE 5% PATCH TOPICAL SCH (12:09)
[2018-11-28 12:30] LABS: Glucose,Whole Blood 117 mg/dL (75-99)
--- NOTE | 2018-11-28 12:58 | CDI ---
Documentation Clarification Form Date: 11/28/2018 12:42:26 PM From: Lori aMrio RN, CCDS Admit Date: 11/27/2018 9:41:00 AM Patient Name: Scotty De Los Santos Visit Number: [id number] Discharge Date: ATTENTION: The Clinical Documentation Specialists (CDI) and [facility] Coding Staff appreciate your assistance in clarifying documentation. Please respond to the clarification below the line at the bottom and electronically sign. The CDI & [facility] Coding staff will review the response and follow-up if needed. Please note: Queries are made part of the Legal Health Record. If you have any questions, please contact the author of this message via ITS. Dr. Ellen Perdomo, Rhabdo is documented in the H & P and Progress note as possible and rule out. History/Risk Factors: 78 year old female presents to the ED via EMS from home after falling on Saturday. The patient was on the floor for four days. Medical history Angina, VA/ TIA , DM , HTN, OA , Back surgery. Clinical Indicators: Lab findings: Creatinine KInase 11/26/2018 865.0, 11/27/2018 675.0, 11/28/2018 585 Vital Signs: 122/72 94 100.3 18 97% ra Treatment: 0.9 Ns 1L bolus then at 120cc/hr In your professional opinion, can you please clarify Rhabdomyolysis? * Rhabdomyolysis POA * Traumatic Rhabdomyolysis POA * Rhabdomyolysis Ruled out * Other, please specify * Unable to determine (Last Revision: November 2017) This is elevated CPK (would not call it Rhabdo as CPK is < 1000) MTDD
[2018-11-28 17:09] LABS: Glucose,Whole Blood 121 mg/dL (75-99)
[2018-11-28] MEDS: LATANOPROST 0.005% OPHTH DROPS 2.5 ML BTL BOTH EYES SCH (21:23)
[2018-11-28 21:35] LABS: Glucose,Whole Blood 153 mg/dL (75-99)
[2018-11-29] MEDS: KETOROLAC 30 MG/ML 1 ML VIAL IVP SCH ×3 (05:46→17:23)
[2018-11-29] MEDS: LEVOTHYROXINE 75 MCG TAB PO SCH (05:46)
[2018-11-29 07:34] LABS: Glucose,Whole Blood 115 mg/dL (75-99)
[2018-11-29] MEDS: INSULIN ASPART (NovoLOG) 100 UNIT/ML VIAL SQ SCH ×4 (08:55→21:25)
[2018-11-29] MEDS: ATORVASTATIN 20 MG TAB PO SCH (09:02)
[2018-11-29] MEDS: HEPARIN SODIUM,PORCINE 5,000 UNIT/ML 1 ML VIAL SQ SCH ×2 (09:02→17:22)
[2018-11-29] MEDS: FLUTICASONE 50MCG/SPRAY NASAL 16GM EA NOSTRIL SCH (09:02)
[2018-11-29] MEDS: ASPIRIN 81 MG PO SCH (09:02)
[2018-11-29] MEDS: LORATADINE 10 MG TAB PO SCH (09:02)
[2018-11-29] MEDS: PARoxetine 20 MG TAB PO SCH (09:02)
[2018-11-29] MEDS: PANTOPRAZOLE 40 MG TABLET PO SCH (09:02)
[2018-11-29] MEDS: buPROPion SR 150 MG TABLET.ER PO SCH ×2 (09:02→21:00)
[2018-11-29] MEDS: LIDOCAINE 5% PATCH TOPICAL SCH (09:03)
--- NOTE | 2018-11-29 10:14 | P.PN ---
Subjective Progress Note Date: 11/29/18 Principal diagnosis: Fall Patient was seen and examined. No acute events overnight. Patient reports significant improvement in her lower back pain and headache since yesterday. She has no complaints this morning. Tolerating diet well. Requesting change from [facility] diet to regular. No bowel movement since Saturday, requesting stool softener. Objective - Vital Signs Vital signs: Vital Signs Temp 98.2 F 11/29/18 07:00 Pulse 98 11/29/18 07:00 Resp 14 11/29/18 07:00 BP 120/66 11/29/18 07:00 Pulse Ox 98 11/29/18 07:00 Intake & Output 11/28/18 11/29/18 11/29/18 18:59 06:59 18:59 Intake Total 2268 300 140 Balance 2268 300 140 Intake: Intake, IV Titration 960 Amount Sodium Chloride 0.9% 1, 960 000 ml @ 120 mls/hr IV . Q8H20M [facility] Rx#:[id number] Oral 1308 300 140 Other: Voiding Method Bedside Commode Toilet # Voids 2 1 - Exam General: [non toxic], [no distress], [appears at stated age] Derm: [warm], [dry] Head: [atraumatic], [normocephalic], [symmetric], [fullness of the frontal maxillary sinuses] Eyes: [EOMI], [no lid lag], [anicteric sclera] Mouth: [no lip lesion], [mucus membranes moist] Cardiovascular: [S1S2 reg], [no murmur], [positive DP pulse bilateral] Lungs: [CTA bilateral], [no rhonchi, no rales] , [no accessory muscle use] Abdominal: [soft], [ nontender to palpation], [no guarding], [no appreciable organomegaly] Ext: [no gross muscle atrophy], [no edema], [no contractures], [right lower extremity 3 out of 5, left lower extremity 4 out of 5 strength due to pain], [tenderness of the paraspinal muscles bilaterally] Neuro: [no focal neuro deficits] Psych: [Alert], [oriented], [appropriate affect] - Labs CBC & Chem 7: 11/27/18 08:01 11/28/18 10:48 Labs: Abnormal Lab Results - Last 24 Hours (Table) 11/28/18 11/28/18 11/28/18 Range/Units 10:48 12:19 16:58 Chloride 108 H (98-107) mmol/L Glucose 134 H (74-99) mg/dL POC Glucose (mg/dL) 117 H 121 H (75-99) mg/dL Creatine Kinase 585 H (30-135) U/L 11/28/18 11/29/18 Range/Units 21:12 07:30 Chloride (98-107) mmol/L Glucose (74-99) mg/dL POC Glucose (mg/dL) 153 H 115 H (75-99) mg/dL Creatine Kinase (30-135) U/L Microbiology - Last 24 Hours (Table) 11/26/18 14:34 Blood Culture - Preliminary Blood No Growth after 48 hours Assessment and Plan Assessment: Assessment and Plan Headache, improving Debility and generalized weakness due to advanced age, spent 3-4 days alone at home on the floor Chronic lower back pain Elevated creatinine kinase Elevated AST Elevated BUN, likely secondary to dehydration, resolved Hypothyroidism Glaucoma Diabetes mellitus History of TIA Depression Possible ALLERGIC rhinitis. Trial of Flonase and Claritin. Pain management with Tylenol, Toradol. Avoid opiates for headache. Due to chronic lower back pain, multiple spinal surgeries. PTOT recommending rehab. Patient agreeable, director of social media marketing consult. Lumbar strain on physical exam. Pain management with Tylenol, Toradol or [place]. Add Flexeril and lidocaine patch. Likely from fall, prolonged. CPK 675 to 585. Renal function within normal limits. DC IVF and encourage by mouth hydration follow CPK. AST 46. Possibly fatty liver. Continue Lipitor. BUN 20 on admission, now resolved. Discontinue IVF and encourage by mouth hydration. Continue Synthroid. Continue latanoprost. Insulin sliding scale. Continue Lipitor. Restart aspirin. Protonix for GI prophylaxis given aspirin and Toradol use. Continue bupropion and paroxetine. Patient admitted for fall. Social work consult for rehab. Plans for DC to [facility] on 12/01 after 3 days inpatient.
[2018-11-29] MEDS ORDERED: BISACODYL 5 MG TABLET.DR PO STA (10:15)
[2018-11-29 12:19] LABS: Glucose,Whole Blood 103 mg/dL (75-99)
[2018-11-29 17:31] LABS: Glucose,Whole Blood 120 mg/dL (75-99)
[2018-11-29] MEDS: LATANOPROST 0.005% OPHTH DROPS 2.5 ML BTL BOTH EYES SCH (21:00)
[2018-11-29 21:16] LABS: Glucose,Whole Blood 128 mg/dL (75-99)
[2018-11-30] MEDS: KETOROLAC 30 MG/ML 1 ML VIAL IVP SCH ×5 (00:31→23:01)
[2018-11-30] MEDS: HEPARIN SODIUM,PORCINE 5,000 UNIT/ML 1 ML VIAL SQ SCH ×4 (00:31→23:02)
[2018-11-30] MEDS: LEVOTHYROXINE 75 MCG TAB PO SCH (06:11)
[2018-11-30 07:43] LABS: Glucose,Whole Blood 104 mg/dL (75-99)
[2018-11-30] MEDS: INSULIN ASPART (NovoLOG) 100 UNIT/ML VIAL SQ SCH ×4 (08:19→20:26)
[2018-11-30] MEDS: buPROPion SR 150 MG TABLET.ER PO SCH ×2 (09:31→20:27)
[2018-11-30] MEDS: PARoxetine 20 MG TAB PO SCH (09:31)
[2018-11-30] MEDS: PANTOPRAZOLE 40 MG TABLET PO SCH (09:32)
[2018-11-30] MEDS: ATORVASTATIN 20 MG TAB PO SCH (09:32)
[2018-11-30] MEDS: LORATADINE 10 MG TAB PO SCH (09:32)
[2018-11-30] MEDS: ASPIRIN 81 MG PO SCH (09:32)
[2018-11-30] MEDS: FLUTICASONE 50MCG/SPRAY NASAL 16GM EA NOSTRIL SCH (09:32)
[2018-11-30] MEDS: LIDOCAINE 5% PATCH TOPICAL SCH (09:32)
--- NOTE | 2018-11-30 11:33 | P.PN ---
Subjective Progress Note Date: 11/30/18 Principal diagnosis: Placement Patient was seen and examined. No acute events overnight. Patient reports controllable back pain since starting lidocaine patch. She continues to complain of itchy eyes and frontal headache. She denies any fever or chills. No nausea or vomiting. She denies any chest pain, shortness of breath or palpitations. Objective - Vital Signs Vital signs: Vital Signs Temp 98.4 F 11/30/18 07:17 Pulse 75 11/30/18 08:00 Resp 14 11/30/18 08:00 BP 154/80 11/30/18 07:17 Pulse Ox 95 11/30/18 07:17 Intake & Output 11/29/18 11/30/18 11/30/18 18:59 06:59 18:59 Intake Total 140 740 Balance 140 740 Intake: Oral 140 740 Other: Voiding Method Toilet Toilet Toilet # Voids 4 1 - Exam General: [non toxic], [no distress], [appears at stated age] Derm: [warm], [dry] Head: [atraumatic], [normocephalic], [symmetric], [fullness of the frontal maxillary sinuses] Eyes: [EOMI], [no lid lag], [anicteric sclera] Mouth: [no lip lesion], [mucus membranes moist] Cardiovascular: [S1S2 reg], [no murmur], [positive DP pulse bilateral] Lungs: [CTA bilateral], [no rhonchi, no rales] , [no accessory muscle use] Abdominal: [soft], [ nontender to palpation], [no guarding], [no appreciable organomegaly] Ext: [no gross muscle atrophy], [no edema], [no contractures], [right lower extremity 3 out of 5, left lower extremity 4 out of 5 strength due to pain], [tenderness of the paraspinal muscles bilaterally] Neuro: [no focal neuro deficits] Psych: [Alert], [oriented], [appropriate affect] - Labs CBC & Chem 7: 11/27/18 08:01 11/28/18 10:48 Labs: Abnormal Lab Results - Last 24 Hours (Table) 11/29/18 11/29/18 11/29/18 Range/Units 12:17 17:19 21:12 POC Glucose (mg/dL) 103 H 120 H 128 H (75-99) mg/dL 11/30/18 Range/Units 07:30 POC Glucose (mg/dL) 104 H (75-99) mg/dL Microbiology - Last 24 Hours (Table) 11/26/18 14:34 Blood Culture - Preliminary Blood No Growth after 72 hours Assessment and Plan Assessment: Assessment and Plan Headache, improving Debility and generalized weakness due to advanced age, spent 3-4 days alone at home on the floor Chronic lower back pain Elevated creatinine kinase Elevated AST Elevated BUN, likely secondary to dehydration, resolved Hypothyroidism Glaucoma Diabetes mellitus History of TIA Depression Possible ALLERGIC rhinitis. Trial of Flonase and Claritin. Pain management with Tylenol, Toradol. Avoid opiates for headache. Due to chronic lower back pain, multiple spinal surgeries. PTOT recommending rehab. Patient agreeable, social work assistant consult. Lumbar strain on physical exam. Pain management with Tylenol, Toradol or [place]. Add Flexeril and lidocaine patch. Likely from fall, prolonged. CPK 675 to 585. Renal function within normal limits. DC IVF and encourage by mouth hydration. AST 46. Possibly fatty liver. Continue Lipitor. BUN 20 on admission, now resolved. Discontinue IVF and encourage by mouth hydration. Continue Synthroid. Continue latanoprost. Insulin sliding scale. Continue Lipitor. Restart aspirin. Protonix for GI prophylaxis given aspirin and Toradol use. Continue bupropion and paroxetine. Patient admitted for fall. Social work consult for rehab. Plans for DC to [facility] on 12/01 after 3 days inpatient.
[2018-11-30 12:06] LABS: Glucose,Whole Blood 120 mg/dL (75-99)
[2018-11-30] MEDS: BISACODYL 5 MG TABLET.DR PO PRN (17:14)
[2018-11-30 17:38] LABS: Glucose,Whole Blood 123 mg/dL (75-99)
[2018-11-30] MEDS: LATANOPROST 0.005% OPHTH DROPS 2.5 ML BTL BOTH EYES SCH (20:27)
[2018-11-30 20:34] LABS: Glucose,Whole Blood 175 mg/dL (75-99)
[2018-12-01] MEDS: KETOROLAC 30 MG/ML 1 ML VIAL IVP SCH ×2 (05:06→11:44)
[2018-12-01] MEDS: LEVOTHYROXINE 75 MCG TAB PO SCH (05:07)
[2018-12-01 07:14] LABS: Glucose,Whole Blood 120 mg/dL (75-99)
[2018-12-01 07:59] VITALS: BP 160/76; PULSE 75; RESP 14; TEMP 98.2
[2018-12-01] MEDS: INSULIN ASPART (NovoLOG) 100 UNIT/ML VIAL SQ SCH ×2 (08:19→12:10)
[2018-12-01] MEDS: FLUTICASONE 50MCG/SPRAY NASAL 16GM EA NOSTRIL SCH (08:22)
[2018-12-01] MEDS: LORATADINE 10 MG TAB PO SCH (08:22)
[2018-12-01] MEDS: HEPARIN SODIUM,PORCINE 5,000 UNIT/ML 1 ML VIAL SQ SCH (08:22)
[2018-12-01] MEDS: PARoxetine 20 MG TAB PO SCH (08:22)
[2018-12-01] MEDS: ATORVASTATIN 20 MG TAB PO SCH (08:22)
[2018-12-01] MEDS: ASPIRIN 81 MG PO SCH (08:22)
[2018-12-01] MEDS: PANTOPRAZOLE 40 MG TABLET PO SCH (08:22)
[2018-12-01] MEDS: buPROPion SR 150 MG TABLET.ER PO SCH (08:22)
[2018-12-01] MEDS: LIDOCAINE 5% PATCH TOPICAL SCH (08:23)
[2018-12-01] MEDS ORDERED: MAGNESIUM HYDROXIDE 2,400 MG/10 ML CUP PO PRN (11:31)
[2018-12-01] MEDS: BISACODYL 5 MG TABLET.DR PO PRN (11:44)
[2018-12-01 12:20] LABS: Glucose,Whole Blood 119 mg/dL (75-99)
--- NOTE | 2018-12-01 12:25 | P.DS ---
Providers Date of admission: 11/27/18 09:41 Expected date of discharge: 12/01/18 Attending physician: Franci Freeman MD Primary care physician: Jennifer Chiang MD Hospital Course: 78-year-old female with history of hypothyroid, multiple TIAs, diabetes mellitus on metformin, hypertension. Patient lives alone, it seems like she sustained a mechanical fall on Saturday she uses a walker to ambulate however she can take it into the bathroom where she slipped and fell and couldn't get up she tried but she felt weak. She stayed on the floor for 4 days until today when [employer] ladkarmen found her and notified her daughter. She was brought to the hospital. Patient reports that she was left without eating or drinking laying down on the floor trying to crawl she couldn't get up on her own. She wasn't taking any of her medications. She feels sore all over with generalized weakness. She soiled her clothes with feces and urine.. Otherwise she denies any fevers chills denies any chest pain or trouble breathing denies any focal neurologic deficits changes in her vision or hearing. Patient was seen and evaluated the medical floor with her family at bedside. She denies any other complaints. Family interested in evaluating the patient to determine the best site of care posthospitalization. All imaging studies in the ER was unremarkable without any evidence of acute fractures. Patient is an evaluated by physical therapy and occupational therapy and recommended rehab. Patient was agreeable and social work consult was placed. Patient was accepted to [facility] on 12/01/2018. Patient did complain of a headache throughout her hospitalization her headache was consistent with ALLERGIC rhinitis. She was given a trial of Flonase and Claritin. Her chronic lower back pain was managed with Tylenol, Toradol or [place]. Fl exeril and lidocaine patch was added with good results. Patient was noted to have an elevated CPK of 675 on admission. Her repeat CPK was 585 on discharge. Her renal function was within normal limits throughout her hospitalization. She was initially started on IVF which was discontinued and she was encouraged hydration by mouth. Otherwise, her home medications were resumed for hypothyroidism, glaucoma, diabetes mellitus, history of TIA and depression. Patient was seen and examined. No acute events overnight. Patient reports constipation, just took milk of magnesia. She denies any nausea or vomiting. No fever or chills. She denies any chest pain, shortness of breath or palpitations. General: [non toxic], [no distress], [appears at stated age] Derm: [warm], [dry] Head: [atraumatic], [normocephalic], [symmetric], [fullness of the frontal maxillary sinuses] Eyes: [EOMI], [no lid lag], [anicteric sclera] Mouth: [no lip lesion], [mucus membranes moist] Cardiovascular: [S1S2 reg], [no murmur], [positive DP pulse bilateral] Lungs: [CTA bilateral], [no rhonchi, no rales] , [no accessory muscle use] Abdominal: [soft], [ nontender to palpation], [no guarding], [no appreciable organomegaly] Ext: [no gross muscle atrophy], [no edema], [no contractures], [right lower extremity 3 out of 5, left lower extremity 4 out of 5 strength due to pain], [tenderness of the paraspinal muscles bilaterally] Neuro: [no focal neuro deficits] Psych: [Alert], [oriented], [appropriate affect] Assessment and Plan Constipation Headache, improving Debility and generalized weakness due to advanced age, spent 3-4 days alone at home on the floor Chronic lower back pain Elevated creatinine kinase Elevated AST Elevated BUN, likely secondary to dehydration, resolved Hypothyroidism Glaucoma Diabetes mellitus History of TIA Depression Trial of milk of mag. Possible ALLERGIC rhinitis. Trial of Flonase and Claritin. Pain management with Tylenol, Toradol. Avoid opiates for headache. Due to chronic lower back pain, multiple spinal surgeries. PTOT recommending rehab. Patient agreeable, post tensioning ironworker helper consult. Lumbar strain on physical exam. Pain management with Tylenol, Toradol or [place]. Add Flexeril and lidocaine patch. Likely from fall, prolonged. CPK 675 to 585. Renal function within normal limits. DC IVF and encourage by mouth hydration. AST 46. Possibly fatty liver. Continue Lipitor. BUN 20 on admission, now resolved. Discontinue IVF and encourage by mouth hydration. Continue Synthroid. Continue latanoprost. Insulin sliding scale. Continue Lipitor. Restart aspirin. Protonix for GI prophylaxis given aspirin and Toradol use. Continue bupropion and paroxetine. Patient admitted for fall. Social work consult for rehab. Plans for DC to [facility] today. This complex discharge took greater than 30 minutes. Pertinent Studies: Brain CT, chest x-ray, lumbar x-ray, pelvic x-ray, thoracic x-ray Patient Condition at Discharge: Stable Plan - Discharge Summary New Discharge Prescriptions: New Aspirin 81 mg PO DAILY chew Loratadine [Claritin] 10 mg PO DAILY tab Cyclobenzaprine [Flexeril] 5 mg PO TID PRN tab PRN Reason: Muscle Spasm Magnesium Hydroxide [Milk of Magnesia Concentrate] 2,400 mg PO DAILY PRN ml PRN Reason: Constipation HYDROcodone/APAP 5-325MG [[place] 5-325] 1 each PO Q4HR PRN tab PRN Reason: Pain Continue cycloSPORINE [Restasis] 1 applicator BOTH EYES BID PRN PRN Reason: Itching Albuterol Sulfate [Proair Hfa] 1 - 2 puff INHALATION RT-Q6H PRN PRN Reason: Shortness Of Breath Lidocaine 5% Patch [Lidoderm 5% Patch] 1 patch TOPICAL DAILY Levothyroxine Sodium [Synthroid] 75 mcg PO DAILY Bimatoprost [[place] .01% Ophth Soln] 1 drop BOTH EYES HS Dorzolamide HCl/Pf [Dorzolamide 2% Eye Drop] 1 drop RIGHT EYE BID Brimonidine Tartrate [Alphagan P 0.2% Ophth Soln] 1 drops RIGHT EYE QAM Atorvastatin [Lipitor] 20 mg PO DAILY Zinc 50 mg PO DAILY Vits A,C,E/Lutein/Minerals [Ocuvite with Lutein Tablet] 1 tab PO DAILY PARoxetine HCL 40 mg PO DAILY Omeprazole [PriLOSEC] 40 mg PO DAILY Cholecalciferol (Vitamin D3) [Vitamin D3] 2,000 unit PO DAILY Spironolactone [Aldactone] 25 mg PO DAILY metFORMIN HCL [Glucophage] 500 mg PO BID Magnesium Oxide [Magox 400] 400 mg PO DAILY buPROPion HCL [buPROPion HCL SR] 150 mg PO BID Folic Acid 0.4 mg PO DAILY Turmeric Root Extract [Turmeric] 500 mg PO DAILY Discharge Medication List Albuterol Sulfate [Proair Hfa] 1 - 2 puff INHALATION RT-Q6H PRN 04/04/18 [History] Atorvastatin [Lipitor] 20 mg PO DAILY 04/04/18 [History] Bimatoprost [[place] .01% Ophth Soln] 1 drop BOTH EYES HS 04/04/18 [History] Brimonidine Tartrate [Alphagan P 0.2% Ophth Soln] 1 drops RIGHT EYE QAM 04/04/18 [History] Cholecalciferol (Vitamin D3) [Vitamin D3] 2,000 unit PO DAILY 04/04/18 [History] Dorzolamide HCl/Pf [Dorzolamide 2% Eye Drop] 1 drop RIGHT EYE BID 04/04/18 [History] Levothyroxine Sodium [Synthroid] 75 mcg PO DAILY 04/04/18 [History] Lidocaine 5% Patch [Lidoderm 5% Patch] 1 patch TOPICAL DAILY 04/04/18 [History] Omeprazole [PriLOSEC] 40 mg PO DAILY 04/04/18 [History] PARoxetine HCL 40 mg PO DAILY 04/04/18 [History] Vits A,C,E/Lutein/Minerals [Ocuvite with Lutein Tablet] 1 tab PO DAILY 04/04/18 [History] Zinc 50 mg PO DAILY 04/04/18 [History] cycloSPORINE [Restasis] 1 applicator BOTH EYES BID PRN 04/04/18 [History] Folic Acid 0.4 mg PO DAILY 11/26/18 [History] Magnesium Oxide [Magox 400] 400 mg PO DAILY 11/26/18 [History] Spironolactone [Aldactone] 25 mg PO DAILY 11/26/18 [History] Turmeric Root Extract [Turmeric] 500 mg PO DAILY 11/26/18 [History] buPROPion HCL [buPROPion HCL SR] 150 mg PO BID 11/26/18 [History] metFORMIN HCL [Glucophage] 500 mg PO BID 11/26/18 [History] Aspirin 81 mg PO DAILY chew 12/01/18 [Rx] Cyclobenzaprine [Flexeril] 5 mg PO TID PRN tab 12/01/18 [Rx] HYDROcodone/APAP 5-325MG [[place] 5-325] 1 each PO Q4HR PRN tab 12/01/18 [Rx] Loratadine [Claritin] 10 mg PO DAILY tab 12/01/18 [Rx] Magnesium Hydroxide [Milk of Magnesia Concentrate] 2,400 mg PO DAILY PRN ml 12/01/18 [Rx] Follow up Appointment(s)/Referral(s): Jennifer Chiang MD [Primary Care Provider] - 1-2 days Indira Ogden [NON-STAFF] - As Needed Activity/Diet/Wound Care/Special Instructions: Diet: Diabetic Follow-up with PCP within 1-2 days of discharge. Take all medications as advised. Discharge Disposition: TRANSFER TO SNF/ECF
== END 2018-12-01 14:07 | DRG 641 ==
LOC: EC 12:27 → 4SSUR 16:29 → OBSVTOIN 11-27 09:41
PROVIDERS: ADMIT Internal Medicine; ATTEND Internal Medicine
DX: E86.0 Dehydration (principal); E87.2 Acidosis; E11.9 Type 2 diabetes mellitus without complications; G89.29 Other chronic pain; S39.012A Strain of muscle, fascia and tendon of lower back, initial encounter; R51 Headache; M17.0 Bilateral primary osteoarthritis of knee; R74.0 Nonspecific elevation of levels of transaminase and lactic acid dehydrogenase [LDH]; R94.4 Abnormal results of kidney function studies; R74.8 Abnormal levels of other serum enzymes; I10 Essential (primary) hypertension; E03.9 Hypothyroidism, unspecified; K21.9 Gastro-esophageal reflux disease without esophagitis; J30.2 Other seasonal allergic rhinitis; J30.9 Allergic rhinitis, unspecified; K59.00 Constipation, unspecified; F32.9 Major depressive disorder, single episode, unspecified; F41.9 Anxiety disorder, unspecified; H40.9 Unspecified glaucoma; H54.62 Unqualified visual loss, left eye, normal vision right eye; Z79.890 Hormone replacement therapy; Z79.84 Long term (current) use of oral hypoglycemic drugs; Z86.73 Personal history of transient ischemic attack (TIA), and cerebral infarction without residual deficits; Z87.891 Personal history of nicotine dependence; Z98.41 Cataract extraction status, right eye; Z79.899 Other long term (current) drug therapy; Z88.0 Allergy status to penicillin; Z88.2 Allergy status to sulfonamides; W18.30XA Fall on same level, unspecified, initial encounter; Y92.002 Bathroom of unspecified non-institutional (private) residence as the place of occurrence of the external cause
CPT/HCPCS: 36415; 70450; 71046; 72070; 72100; 72170; 80048; 80053; 81003; 82550; 83605; 84484; 85025; 85610; 85730; 87040; 87086; 93005; 96361; 96374; 96375; 99285

== ENCOUNTER → 2020-08-29 | Outpatient (CLI) | payer MEDICARE, OTHER ==
--- NOTE | 2020-08-30 04:40 | CT ---
EXAMINATION TYPE: CT soft tissue neck wo con DATE OF EXAM: 08/29/2020 COMPARISON: None HISTORY: Enlarged lymph nodes, noted by BBs. CT DLP: 502.70 mGycm Automated exposure control for dose reduction was used. Images were obtained from the level of the aortic arch to the mid orbits without contrast. The globes are symmetric. There is no evidence of retro-orbital mass. There is cerebral atrophy. The parotid glands are symmetric. Submandibular salivary glands are symmetric. The thyroid gland show s asymmetric enlargement of the left lobe. There is 2.7 cm low-density area that is probably a cyst i n the left thyroid lobe. Trachea is intact. There is dense calcification in the subcarinal lymph node s. There is mild bronchial cartilage calcification. Superior mediastinum shows no adenopathy. I see n o evidence of any significant cervical enlarged lymph nodes. Cervical vertebra have normal alignment. There is degenerative disc space narrowing from C2 to C7. Th ere is multilevel cervical facet arthropathy. Epiglottis is normal. Tongue is intact. Prevertebral soft tissues are within normal limits. The tonsi ls and adenoids are within normal limits. IMPRESSION: Asymmetric enlargement of the left thyroid lobe that could be further evaluated with ultrasound if cl inically indicated. No evidence of any significant cervical adenopathy. Atherosclerotic vascular disease. Old granulomato us disease. Mild multilevel cervical spondylotic changes.
== END | disposition home or self-care (01) ==
LOC: RADCTMAIN 16:57
PROVIDERS: ATTEND Family Medicine
DX: E04.9 Nontoxic goiter, unspecified (principal)
CPT/HCPCS: 70490

== ENCOUNTER 2020-09-30 12:20 | Day surgery (SDC) | payer MEDICARE, OTHER ==
[2020-09-30 12:38] VITALS: TEMP 97.8
[2020-09-30] MEDS ORDERED: ALPRAZolam 0.25 MG TAB PO PRN (12:44)
[2020-09-30 13:45] VITALS: BP 134/90; PULSE 68; RESP 18
--- NOTE | 2020-09-30 13:47 | US ---
ULTRASOUND GUIDED FNA THYROID BIOPSY: CLINICAL HISTORY: Left thyroid nodule FINDINGS: The procedure was explained to the patient. The risks, complications, benefits and alternatives were discussed and any questions were answered. Informed consent was obtained. Patient was placed supin e on the ultrasound table and prepped and draped in the usual sterile fashion. Utilizing a 25 gauge needle, five passes were made into the requested left thyroid nodule. Patient was stable throughout the procedure. Pathology is pending. All elements of maximal barrier technique were utilized. IMPRESSION: 1. Successful ultrasound guided FNA thyroid biopsy.
== END 2020-09-30 14:17 | disposition home or self-care (01) ==
LOC: RADPROMAIN 12:20
PROVIDERS: ATTEND Family Medicine
DX: E04.1 Nontoxic single thyroid nodule (principal); N18.9 Chronic kidney disease, unspecified; J44.9 Chronic obstructive pulmonary disease, unspecified; G89.4 Chronic pain syndrome; I50.9 Heart failure, unspecified; F32.9 Major depressive disorder, single episode, unspecified; R26.9 Unspecified abnormalities of gait and mobility; E03.9 Hypothyroidism, unspecified; E11.40 Type 2 diabetes mellitus with diabetic neuropathy, unspecified; E66.9 Obesity, unspecified; Z68.37 Body mass index [BMI] 37.0-37.9, adult; M19.90 Unspecified osteoarthritis, unspecified site; Z79.84 Long term (current) use of oral hypoglycemic drugs; Z79.890 Hormone replacement therapy; Z79.899 Other long term (current) drug therapy; Z88.5 Allergy status to narcotic agent; Z88.0 Allergy status to penicillin; Z88.2 Allergy status to sulfonamides
CPT/HCPCS: 10005; 88173; 88305

== ENCOUNTER 2021-11-13 15:12 | Emergency (ER) | payer MEDICARE, OTHER ==
[2021-11-13 15:23] VITALS: RESP 18; TEMP 97.3
[2021-11-13] MEDS ORDERED: SODIUM CHLORIDE 0.9% 2,000 ML IV STA (17:08)
[2021-11-13] MEDS ORDERED: ONDANSETRON 4 MG/2 ML VIAL IVP STA (17:09)
[2021-11-13 17:36] VITALS: BP 136/75; PULSE 90
[2021-11-13 17:45] LABS: Appearance,Urine Clear (Clear); Bilirubin,Urine Negative (Negative); Blood,Urine Negative (Negative); Color,Urine Light Yellow; Glucose,Urine (UA) Negative (Negative); Ketones,Urine Negative (Negative); Leukocyte Esterase,Urine Negative (Negative); Nitrite,Urine Negative (Negative); Protein,Urine Negative (Negative); Urobilinogen,Urine <2.0 mg/dL (<2.0)
[2021-11-13 17:49] LABS: ALT 17 U/L (4-34); AST 31 U/L (14-36); African American GFR (CKD) 60 (>60 ml/min/1.73 sqM); Albumin 4.5 g/dL (3.5-5.0); Alkaline Phosphatase 98 U/L (38-126); Anion Gap 11 mmol/L; Blood Urea Nitrogen 21 mg/dL (7-17); Calcium 10.1 mg/dL (8.4-10.2); Carbon Dioxide 27 mmol/L (22-30); Chloride 100 mmol/L (98-107); Glucose 108 mg/dL (74-99); Lipase 110 U/L (23-300); Non-African American GFR(CKD) 52 (>60 ml/min/1.73 sqM); Potassium 3.7 mmol/L (3.5-5.1); Sodium 138 mmol/L (137-145)
[2021-11-13 17:50] LABS: Basophils % (A) 0 %; Eosinophils # (A) 0.1 k/uL (0-0.7); Eosinophils % (A) 2 %; HCT 42.6 % (34.0-46.0); HGB 14.5 gm/dL (11.4-16.0); Lymphocytes # (A) 2.2 k/uL (1.0-4.8); Lymphocytes % (A) 30 %; MCHC 34.1 g/dL (31.0-37.0); MCV 90.9 fL (80.0-100.0); Mean Platelet Volume 7.9; Monocytes # (A) 0.5 k/uL (0-1.0); Monocytes % (A) 7 %; Neutrophils # (A) 4.4 k/uL (1.3-7.7); Neutrophils % (A) 59 %; Platelet Count 263 k/uL (150-450); RBC 4.69 m/uL (3.80-5.40); RDW 14.5 % (11.5-15.5); WBC 7.4 k/uL (3.8-10.6)
--- NOTE | 2021-11-13 18:32 | ED ---
Abdominal Pain HPI - General Chief Complaint: Abdominal Pain Stated Complaint: Vomiting, Headache Time Seen by Provider: 11/13/21 16:56 Source: patient Mode of arrival: EMS - History of Present Illness Initial Comments: Patient is a 81-year-old female who presents to the emergency department with a chief complaint intermittent nausea and vomiting x 1 month. Patient states that her primary care provider Dr. Garcia has been giving her Zofran which helped her nausea and vomiting but she has ran out twice. Patient denies abdominal past medical history her surgery. Patient states she drinks alcohol rarely and denies drug use including marijuana. Patient states last bowel movement was yesterday which was normal. Patient has lack of appetite due to the nausea and vomiting which she states has caused her to have less frequent bowel movements. Patient has no other concerns at this time including fever, chills, headache, shortness of breath, cough, chest pain, abdominal pain, diarrhea, and burning with urination. - Related Data Home Medications Medication Instructions Recorded Confirmed Albuterol Sulfate [Proair Hfa] 1 - 2 puff INHALATION RT-Q6H PRN 04/04/18 08/04/21 Levothyroxine Sodium [Synthroid] 75 mcg PO DAILY 04/04/18 08/04/21 PARoxetine HCL 40 mg PO DAILY 04/04/18 08/04/21 traMADol HCL 100 mg PO TID PRN 09/14/20 08/04/21 Cholecalciferol [Vitamin D3 (25 50 mcg PO DAILY 08/04/21 08/04/21 Mcg = 1000 Iu)] Furosemide [Lasix] 20 mg PO DAILY 08/04/21 08/04/21 Gabapentin 600 mg PO TID 08/04/21 08/04/21 Omeprazole Magnesium [PriLOSEC OTC] 20 mg PO DAILY 08/04/21 08/04/21 Previous Rx's Medication Instructions Recorded Aspirin 81 mg PO DAILY tab 08/05/21 Atorvastatin Calcium [Lipitor] 40 mg PO DAILY #30 tablet 08/05/21 Isosorbide Mononitrate ER [Imdur] 30 mg PO DAILY #30 tablet 08/05/21 Metoprolol Tartrate [Lopressor] 12.5 mg PO BID #60 tab 08/05/21 predniSONE 0 mg PO DIRECTED #10 tab 08/05/21 Ondansetron Odt [Zofran Odt] 4 mg PO Q8HR PRN #21 tab 11/13/21 Allergies Allergy/AdvReac Type Severity Reaction Status Date / Time Penicillins Allergy Rash/Hives Verified 11/13/21 15:19 Sulfa (Sulfonamide Allergy Rash/Hives Verified 11/13/21 15:19 Antibiotics) Review of Systems ROS Statement: Those systems with pertinent positive or pertinent negative responses have been documented in the HPI. ROS Other: All systems not noted in ROS Statement are negative. Past Medical History Past Medical History: Chest Pain / Angina, CVA/TIA, Diabetes Mellitus, Eye Disorder, GERD/Reflux, Hypertension, Osteoarthritis (OA), Thyroid Disorder Additional Past Medical History / Comment(s): glaucoma, blind left eye, states hx of silent TIA's, elva knee pain, hernia, History of Any Multi-Drug Resistant Organisms: None Reported Past Surgical History: Back Surgery, Orthopedic Surgery Additional Past Surgical History / Comment(s): back metal/screws, eye sx for glaucoma, rt carpal tunnel, removal of benign cyst on ovary, right total knee replacement Past Anesthesia/Blood Transfusion Reactions: No Reported Reaction Past Psychological History: Anxiety, Depression Smoking Status: Former smoker Past Alcohol Use History: Rare Past Drug Use History: None Reported, Marijuana General Exam General appearance: alert, in no apparent distress Head exam: Present: atraumatic, normocephalic, normal inspection Eye exam: Present: normal appearance, PERRL, EOMI. Absent: scleral icterus, conjunctival injection, periorbital swelling ENT exam: Present: mucous membranes moist Neck exam: Present: normal inspection, full ROM Respiratory exam: Present: normal lung sounds bilaterally. Absent: respiratory distress, wheezes, rales, rhonchi, stridor Cardiovascular Exam: Present: regular rate, normal rhythm, normal heart sounds. Absent: systolic murmur, diastolic murmur, rubs, gallop, clicks GI/Abdominal exam: Present: soft, hernia (No overlying erythema, swelling. Nontender). Absent: distended, tenderness, guarding, rebound, rigid Neurological exam: Present: alert, oriented X3, CN II-XII intact Psychiatric exam: Present: normal affect, normal mood Skin exam: Present: warm, dry, intact, normal color. Absent: rash Course Vital Signs 11/13/21 11/13/21 15:19 17:15 Temperature 97.3 F L Pulse Rate 98 90 Respiratory 18 18 Rate Blood Pressure 130/82 136/75 O2 Sat by Pulse 100 98 Oximetry Medical Decision Making - Medical Decision Making This is a 21-year-old female who presents with intermittent nausea and vomiting times one month. Thorough history and examination were performed. Patient is afebrile. The abdomen is soft and nontender. There is an abdominal hernia with no overlying erythema or swelling. It is nontender to palpation. Laboratory st udies are unremarkable. Patient given fluid bolus and Zofran. She'll be discharged with instruction to follow up with her primary care provider for further evaluation and management. Return parameters discussed. Patient verbalizes understanding and is agreeable to plan. Dr. Tong is my attending. - Lab Data Result diagrams: 11/13/21 17:31 11/13/21 17:31 Lab Results 11/13/21 11/13/21 11/13/21 Range/Units 17:31 17:31 17:31 WBC 7.4 (3.8-10.6) k/uL RBC 4.69 (3.80-5.40) m/uL Hgb 14.5 (11.4-16.0) gm/dL Hct 42.6 (34.0-46.0) % MCV 90.9 (80.0-100.0) fL MCH 31.0 (25.0-35.0) pg MCHC 34.1 (31.0-37.0) g/dL RDW 14.5 (11.5-15.5) % Plt Count 263 (150-450) k/uL MPV 7.9 Neutrophils % 59 % Lymphocytes % 30 % Monocytes % 7 % Eosinophils % 2 % Basophils % 0 % Neutrophils # 4.4 (1.3-7.7) k/uL Lymphocytes # 2.2 (1.0-4.8) k/uL Monocytes # 0.5 (0-1.0) k/uL Eosinophils # 0.1 (0-0.7) k/uL Basophils # 0.0 (0-0.2) k/uL Sodium 138 (137-145) mmol/L Potassium 3.7 (3.5-5.1) mmol/L Chloride 100 (98-107) mmol/L Carbon Dioxide 27 (22-30) mmol/L Anion Gap 11 mmol/L BUN 21 H (7-17) mg/dL Creatinine 1.01 (0.52-1.04) mg/dL Est GFR (CKD-EPI)AfAm 60 (>60 ml/min/1.73 sqM) Est GFR (CKD-EPI)NonAf 52 (>60 ml/min/1.73 sqM) Glucose 108 H (74-99) mg/dL Calcium 10.1 (8.4-10.2) mg/dL Total Bilirubin 1.0 (0.2-1.3) mg/dL AST 31 (14-36) U/L ALT 17 (4-34) U/L Alkaline Phosphatase 98 (38-126) U/L Total Protein 8.0 (6.3-8.2) g/dL Albumin 4.5 (3.5-5.0) g/dL Lipase 110 (23-300) U/L TSH 1.020 (0.465-4.680) mIU/L Urine Color Light Yellow Urine Appearance Clear (Clear) Urine pH 8.0 (5.0-8.0) Ur Specific [place] 1.010 (1.001-1.035) Urine Protein Negative (Negative) Urine Glucose (UA) Negative (Negative) Urine Ketones Negative (Negative) Urine Blood Negative (Negative) Urine Nitrite Negative (Negative) Urine Bilirubin Negative (Negative) Urine Urobilinogen <2.0 (<2.0) mg/dL Ur Leukocyte Esterase Negative (Negative) Disposition Clinical Impression: Nausea and vomiting Disposition: HOME SELF-CARE Condition: Good Instructions (If sedation given, give patient instructions): Acute Nausea and Vomiting (ED) Additional Instructions: Please take medication as directed. Follow-up with primary care provider at earliest available appointment. Return to the emergency department if you experience new, concerning, or worsening symptoms. Prescriptions: Ondansetron Odt [Zofran Odt] 4 mg PO Q8HR PRN #21 tab PRN Reason: Nausea Is patient prescribed a controlled substance at d/c from ED?: No Referrals: Arsalan Garcia MD [Primary Care Provider] - 1-2 days Time of Disposition: 18:32
== END 2021-11-13 19:15 | disposition home or self-care (01) ==
LOC: EC 15:12
DX: R11.2 Nausea with vomiting, unspecified (principal); E11.9 Type 2 diabetes mellitus without complications; I10 Essential (primary) hypertension; K21.9 Gastro-esophageal reflux disease without esophagitis; M19.90 Unspecified osteoarthritis, unspecified site; F32.A Depression, unspecified; F41.9 Anxiety disorder, unspecified; Z87.891 Personal history of nicotine dependence; Z79.82 Long term (current) use of aspirin; Z79.890 Hormone replacement therapy; Z79.51 Long term (current) use of inhaled steroids; Z79.899 Other long term (current) drug therapy
CPT/HCPCS: 36415; 80053; 84443; 83690; 85025; 81003; 99284; 96374; 96361 ×2; J2405

== ENCOUNTER 2023-04-25 07:53 | Emergency (ER) | payer MEDICARE, OTHER ==
--- NOTE | 2023-04-25 08:17 | ED ---
General Adult HPI - General Stated complaint: Fall Time Seen by Provider: 04/25/23 08:16 Source: patient, RN notes reviewed Mode of arrival: ambulatory Limitations: no limitations - History of Present Illness Initial comments: 82-year-old female presents emergency department with family for evaluation of fall. Patient states she also balance and fell over. Patient went of right- sided rib pain. They do have some concerns that she may have urinary tract infection. She denies any head injury no loss conscious denies any blood thinners. - Related Data Home Medications Medication Instructions Recorded Confirmed Levothyroxine Sodium [Synthroid] 75 mcg PO DAILY 04/04/18 04/10/22 PARoxetine HCL 40 mg PO DAILY 04/04/18 04/10/22 traMADol HCL 100 mg PO TID PRN 09/14/20 04/10/22 Cholecalciferol [Vitamin D3 (25 50 mcg PO DAILY 08/04/21 04/10/22 Mcg = 1000 Iu)] Furosemide [Lasix] 20 mg PO DAILY 08/04/21 04/10/22 Albuterol Nebulizer 1 dose INHALATION DIRECTED PRN 04/10/22 Atorvastatin [Lipitor] 20 mg PO HS 04/10/22 04/10/22 Bimatoprost [Lumigan 0.01% Ophth 1 drop BOTH EYES HS 04/10/22 04/10/22 Soln] Dorzolamide 2% [Trusopt 2%] 1 drops BOTH EYES BID 04/10/22 04/10/22 Dulaglutide [Trulicity] 0.75 mg SQ WEEKLY 04/10/22 04/10/22 Gabapentin [Neurontin] 300 mg PO TID 04/10/22 04/10/22 Lidocaine 5% Patch [Lidoderm] 1 patch TOPICAL DAILY PRN MDD p 04/10/22 04/10/22 Memantine HCl [Namenda] 5 mg PO BID 04/10/22 04/10/22 Multivit with Calcium,Iron,Min 1 each PO DAILY 04/10/22 04/10/22 [Women's Multivitamin] Neurvia -Brain Supplement 1 tab PO DAILY 04/10/22 Omeprazole 40 mg PO DAILY 04/10/22 04/10/22 metFORMIN HCL [Glucophage] 1,000 mg PO BID 04/10/22 04/10/22 Previous Rx's Medication Instructions Recorded Aspirin 81 mg PO DAILY tab 08/05/21 Allergies Allergy/AdvReac Type Severity Reaction Status Date / Time Penicillins Allergy Rash/Hives Verified 04/25/23 08:13 Sulfa (Sulfonamide Allergy Rash/Hives Verified 04/25/23 08:13 Antibiotics) Review of Systems ROS Statement: Those systems with pertinent positive or pertinent negative responses have been documented in the HPI. ROS Other: All systems not noted in ROS Statement are negative. Past Medical History Past Medical History: Chest Pain / Angina, CVA/TIA, Diabetes Mellitus, Eye Disorder, GERD/Reflux, Hypertension, Osteoarthritis (OA), Sleep Apnea/CPAP/BIPAP, Thyroid Disorder Additional Past Medical History / Comment(s): glaucoma- Receives eye injections., blind left eye, states hx of silent TIA's, states pain in back, knees, legs & feet., oxygen at night- does not know how much oxygen., frequent constipation, eczema., pt states she is waiting for meds from [facility] in [place]- does not know what they are because she throws the bottles out when they are empty., will bring names of meds if she gets them., states liver disease. History of Any Multi-Drug Resistant Organisms: None Reported Past Surgical History: Back Surgery, Joint Replacement, Orthopedic Surgery Additional Past Surgical History / Comment(s): back surgery with metal/screws, eye sx for glaucoma, rt carpal tunnel, removal of benign cyst on ovary, right total knee replacement Past Anesthesia/Blood Transfusion Reactions: No Reported Reaction, Motion Sickness Past Psychological History: Anxiety, Depression Smoking Status: Former smoker Past Alcohol Use History: Rare Past Drug Use History: None Reported - Past Family History Mother Family Medical History: No Reported History General Exam - General Exam Comments Initial Comments: Visual Physical Exam Vital signs reviewed General: Well-appearing, nontoxic, no acute distress. Head: Normocephalic, atraumatic Eyes: PERRLA, EOMI ENT: Airway patent Chest: Nonlabored breathing Skin: No visual rash, normal skin tone Neuro: Alert and oriented 3 Musculoskeletal: No gross abnormalities Limitations: no limitations General appearance: alert, in no apparent distress Head exam: Present: atraumatic, normocephalic, normal inspection Eye exam: Present: normal appearance, PERRL, EOMI. Absent: scleral icterus, conjunctival injection, periorbital swelling ENT exam: Present: normal exam, normal oropharynx, mucous membranes moist Neck exam: Present: normal inspection, full ROM. Absent: tenderness, meningismus, lymphadenopathy Respiratory exam: Present: normal lung sounds bilaterally, chest wall tenderness. Absent: respiratory distress, wheezes, rales, rhonchi, stridor Cardiovascular Exam: Present: regular rate, normal rhythm, normal heart sounds. Absent: systolic murmur, diastolic murmur, rubs, gallop, clicks GI/Abdominal exam: Present: soft, normal bowel sounds. Absent: distended, tenderness, guarding, rebound, rigid Course Vital Signs 04/25/23 04/25/23 08:12 12:30 Temperature 98 F 97.8 F Pulse Rate 62 64 Respiratory 16 16 Rate Blood Pressure 138/86 137/78 O2 Sat by Pulse 100 96 Oximetry EKG Findings - EKG Comments: EKG Findings:: EKG performed at 9:09 sinus bradycardia rate of 59 MI 146/85 QT/QTC 417/416 - EKG Results: EKG: interpreted by [facility] Medical Decision Making - Medical Decision Making I performed a quick note portion of this chart signed Mina Rodrigues PA-C Was pt. sent in by a medical professional or institution ([employer], NIGHT CLERK, urgent care, hospital, or assisted...) When possible be specific @ -No Did you speak to anyone other than the patient for history (EMS, parent, family, police, friend...)? What history was obtained from this source @ -No Did you review nursing and triage notes (agree or disagree)? Why? @ -I reviewed and agree with nursing and triage notes Were old charts reviewed (outside hosp., previous admission, EMS record, old EKG, old radiological studies, urgent care reports/EKG's, assisted records)? Report findings @ -No old charts were reviewed Differential Diagnosis (chest pain, altered mental status, abdominal pain women, abdominal pain men, vaginal bleeding, weakness, fever, dyspnea, syncope, headache, dizziness, GI bleed, back pain, seizure, CVA, palpatations, mental health, musculoskeletal)? @ -Rib contusion, rib fracture, UTI EKG interpreted by me (3pts min.). @ -As above X-rays interpreted by me (1pt min.). @ -X-ray chest, rib series no acute fracture or pneumothorax, CT interpreted by me (1pt min.). @ -None done U/S interpreted by me (1pt. min.). @ -None done What testing was considered but not performed or refused? (CT, X-rays, U/S, labs)? Why? @ -None What meds were considered but not given or refused? Why? @ -None Did you discuss the management of the patient with other professionals (professionals i.e. DrSuzy, PA, NIGHT CLERK, lab, RT, psych nurse, social services counselor, paper and pulp mill worker, te acher, fire information officer, case hardener)? Give summary @ -No Was smoking cessation discussed for >3mins.? @ -No Was critical care preformed (if so, how long)? @ -No Were there social determinants of health that impacted care today? How? (Homelessness, low income, unemployed, alcoholism, drug addiction, transportation, low edu. Level, literacy, decrease access to med. care, [facility], rehab)? @ -No Was there de-escalation of care discussed even if they declined (Discuss DNR or withdrawal of care, Hospice)? DNR status @ -No What co-morbidities impacted this encounter? (DM, HTN, Smoking, COPD, CAD, Cancer, CVA, ARF, Chemo, Hep., AIDS, mental health diagnosis, sleep apnea, morbid obesity)? @ -None Was patient admitted / discharged? Hospital course, mention meds given and rou te, prescriptions, significant lab abnormalities, going to OR and other pertinent info. @ -Discharge patient rib contusion patient's laboratory studies EKG and chest x-ray unremarkable urinalysis unremarkable Undiagnosed new problem with uncertain prognosis? @ -No Drug Therapy requiring intensive monitoring for toxicity (Heparin, Nitro, Insulin, Cardizem)? @ -No Were any procedures done? @ -No Diagnosis/symptom? @ -[Fall, rib contusion Acute, or Chronic, or Acute on Chronic? @ -Acute Uncomplicated (without systemic symptoms) or Complicated (systemic symptoms)? @ -Uncomplicated Side effects of treatment? @ -No Exacerbation, Progression, or Severe Exacerbation? @ -No Poses a threat to life or bodily function? How? (Chest pain, [place], [place], pneumonia, PE, COPD, DKA, ARF, appy, cholecystitis, CVA, Diverticulitis, Homicidal, Suicidal, threat to staff... and all critical care pts) @ -No - Lab Data Result diagrams: 04/25/23 09:20 04/25/23 09:20 Lab Results 04/25/23 04/25/23 04/25/23 Range/Units 09:20 09:20 11:33 WBC 5.5 (3.8-10.6) k/uL RBC 4.03 (3.80-5.40) m/uL Hgb 12.8 (11.4-16.0) gm/dL Hct 38.9 (34.0-46.0) % MCV 96.6 (80.0-100.0) fL MCH 31.8 (25.0-35.0) pg MCHC 33.0 (31.0-37.0) g/dL RDW 13.6 (11.5-15.5) % Plt Count 192 (150-450) k/uL MPV 8.0 Neutrophils % 55 % Lymphocytes % 31 % Monocytes % 8 % Eosinophils % 4 % Basophils % 0 % Neutrophils # 3.0 (1.3-7.7) k/uL Lymphocytes # 1.7 (1.0-4.8) k/uL Monocytes # 0.4 (0-1.0) k/uL Eosinophils # 0.2 (0-0.7) k/uL Basophils # 0.0 (0-0.2) k/uL Sodium 135 L (137-145) mmol/L Potassium 4.8 (3.5-5.1) mmol/L Chloride 104 (98-107) mmol/L Carbon Dioxide 27 (22-30) mmol/L Anion Gap 4 mmol/L BUN 11 (7-17) mg/dL Creatinine 0.73 (0.52-1.04) mg/dL Est GFR (CKD-EPI)AfAm 88 (>60 ml/min/1.73 sqM) Est GFR (CKD-EPI)NonAf 76 (>60 ml/min/1.73 sqM) Glucose 74 (74-99) mg/dL Calcium 9.3 (8.4-10.2) mg/dL Total Bilirubin 0.8 (0.2-1.3) mg/dL AST 28 (14-36) U/L ALT 14 (4-34) U/L Alkaline Phosphatase 82 (38-126) U/L Total Protein 7.1 (6.3-8.2) g/dL Albumin 3.9 (3.5-5.0) g/dL Urine Color Colorless Urine Appearance Clear (Clear) Urine pH 6.0 (5.0-8.0) Ur Specific [place] 1.004 (1.001-1.035) Urine Protein Negative (Negative) Urine Glucose (UA) Negative (Negative) Urine Ketones Negative (Negative) Urine Blood Negative (Negative) Urine Nitrite Negative (Negative) Urine Bilirubin Negative (Negative) Urine Urobilinogen <2.0 (<2.0) mg/dL Ur Leukocyte Esterase Negative (Negative) Disposition Clinical Impression: Fall, Contusion of rib on right side Disposition: HOME SELF-CARE Condition: Stable Instructions (If sedation given, give patient instructions): Rib Contusion (ED) Additional Instructions: Please return to the Emergency Department if symptoms worsen or any other concerns. Is patient prescribed a controlled substance at d/c from ED?: No Referrals: Arsalan Garcia MD [Primary Care Provider] - 1-2 days Time of Disposition: 12:19
--- NOTE | 2023-04-25 08:44 | XR ---
EXAMINATION TYPE: XR ribs RT w pa chest xray, 5 views DATE OF EXAM: 04/25/2023 COMPARISON: 08/04/2021 HISTORY: 82-year-old female with fall and pain FINDINGS: Heart normal size. Tortuous/ectatic thoracic aorta. Mild hyperinflation. Mild interstitial prominence . No consolidation, pneumothorax, or pleural effusion. No displaced right rib fracture seen. IMPRESSION: COPD. Tortuous/ectatic thoracic aorta. No displaced right rib fracture seen. No acute pulmonary proce ss.
[2023-04-25 09:46] LABS: Basophils % (A) 0 %; Eosinophils # (A) 0.2 k/uL (0-0.7); Eosinophils % (A) 4 %; HCT 38.9 % (34.0-46.0); HGB 12.8 gm/dL (11.4-16.0); Lymphocytes # (A) 1.7 k/uL (1.0-4.8); Lymphocytes % (A) 31 %; MCH 31.8 pg (25.0-35.0); MCV 96.6 fL (80.0-100.0); Monocytes # (A) 0.4 k/uL (0-1.0); Monocytes % (A) 8 %; Neutrophils % (A) 55 %; Platelet Count 192 k/uL (150-450); RBC 4.03 m/uL (3.80-5.40); RDW 13.6 % (11.5-15.5); WBC 5.5 k/uL (3.8-10.6)
[2023-04-25 09:57] LABS: ALT 14 U/L (4-34); AST 28 U/L (14-36); African American GFR (CKD) 88 (>60 ml/min/1.73 sqM); Albumin 3.9 g/dL (3.5-5.0); Alkaline Phosphatase 82 U/L (38-126); Anion Gap 4 mmol/L; Blood Urea Nitrogen 11 mg/dL (7-17); Calcium 9.3 mg/dL (8.4-10.2); Carbon Dioxide 27 mmol/L (22-30); Chloride 104 mmol/L (98-107); Glucose 74 mg/dL (74-99); Non-African American GFR(CKD) 76 (>60 ml/min/1.73 sqM); Sodium 135 mmol/L (137-145); Total Bilirubin 0.8 mg/dL (0.2-1.3); Total Protein 7.1 g/dL (6.3-8.2)
[2023-04-25 09:59] LABS: Potassium 4.8 mmol/L (3.5-5.1)
[2023-04-25 11:43] LABS: Appearance,Urine Clear (Clear); Bilirubin,Urine Negative (Negative); Blood,Urine Negative (Negative); Color,Urine Colorless; Glucose,Urine (UA) Negative (Negative); Ketones,Urine Negative (Negative); Leukocyte Esterase,Urine Negative (Negative); Nitrite,Urine Negative (Negative); Protein,Urine Negative (Negative); Specific Gravity,Urine 1.004 (1.001-1.035); Urobilinogen,Urine <2.0 mg/dL (<2.0)
[2023-04-25 15:57] VITALS: BP 137/78; PULSE 64; RESP 16; TEMP 97.8
== END 2023-04-25 13:03 | disposition home or self-care (01) ==
LOC: EC 07:53
DX: S20.211A Contusion of right front wall of thorax, initial encounter (principal); R00.1 Bradycardia, unspecified; E11.9 Type 2 diabetes mellitus without complications; I10 Essential (primary) hypertension; K21.9 Gastro-esophageal reflux disease without esophagitis; F32.A Depression, unspecified; F41.9 Anxiety disorder, unspecified; E07.9 Disorder of thyroid, unspecified; Z79.84 Long term (current) use of oral hypoglycemic drugs; Z79.890 Hormone replacement therapy; Z79.899 Other long term (current) drug therapy; Z88.0 Allergy status to penicillin; Z88.2 Allergy status to sulfonamides; Z86.73 Personal history of transient ischemic attack (TIA), and cerebral infarction without residual deficits; Z87.891 Personal history of nicotine dependence; W19.XXXA Unspecified fall, initial encounter
CPT/HCPCS: 36415; 80053; 81003; 85025; 93005; 99284

== ENCOUNTER 2023-09-09 11:41 | Emergency (ER) | payer MEDICARE, OTHER ==
--- NOTE | 2023-09-09 11:55 | ED ---
Fall HPI - General Chief Complaint: Fall Stated Complaint: Fall Time Seen by Provider: 09/09/23 11:53 Source: patient, family, RN notes reviewed, old records reviewed Mode of arrival: wheelchair Limitations: no limitations - History of Present Illness Initial Comments: This is a 82-year-old female to the ER for evaluation today. Patient has a for evaluation of severe back pain, his back pain occurred after a fall 2 days ago. Patient has ability to move legs able to ambulate but has severe pain bruising is worsening and family has concern for intra-abdominal or internal damage. Patient has no other complaints no other injury from the fall no blood in her bowel or bladder MD Complaint: fall -: days(s) (2) Fall From: standing When Fall Occurred: # days FAMILY PSYCHOLOGIST Fall Witnessed: no Place Fall Occurred: home Loss of Consciousness: none Prolonged Down Time?: no Symptoms Prior to Fall: none Location: back Quality: sharp Context: tripped/slipped Associated Symptoms: denies - Related Data Home Medications Medication Instructions Recorded Confirmed Levothyroxine Sodium [Synthroid] 75 mcg PO DAILY 04/04/18 04/10/22 PARoxetine HCL 40 mg PO DAILY 04/04/18 04/10/22 traMADol HCL 100 mg PO TID PRN 09/14/20 04/10/22 Cholecalciferol [Vitamin D3 (25 50 mcg PO DAILY 08/04/21 04/10/22 Mcg = 1000 Iu)] Furosemide [Lasix] 20 mg PO DAILY 08/04/21 04/10/22 Albuterol Nebulizer 1 dose INHALATION DIRECTED PRN 04/10/22 Atorvastatin [Lipitor] 20 mg PO HS 04/10/22 04/10/22 Bimatoprost [Lumigan 0.01% Ophth 1 drop BOTH EYES HS 04/10/22 04/10/22 Soln] Dorzolamide 2% [Trusopt 2%] 1 drops BOTH EYES BID 04/10/22 04/10/22 Dulaglutide [Trulicity] 0.75 mg SQ WEEKLY 04/10/22 04/10/22 Gabapentin [Neurontin] 300 mg PO TID 04/10/22 04/10/22 Lidocaine 5% Patch [Lidoderm] 1 patch TOPICAL DAILY PRN MDD p 04/10/22 04/10/22 Memantine HCl [Namenda] 5 mg PO BID 04/10/22 04/10/22 Multivit with Calcium,Iron,Min 1 each PO DAILY 04/10/22 04/10/22 [Women's Multivitamin] Neurvia -Brain Supplement 1 tab PO DAILY 04/10/22 Omeprazole 40 mg PO DAILY 04/10/22 04/10/22 metFORMIN HCL [Glucophage] 1,000 mg PO BID 04/10/22 04/10/22 Previous Rx's Medication Instructions Recorded Aspirin 81 mg PO DAILY tab 08/05/21 Allergies Allergy/AdvReac Type Severity Reaction Status Date / Time Penicillins Allergy Rash/Hives Verified 09/09/23 11:47 Sulfa (Sulfonamide Allergy Rash/Hives Verified 09/09/23 11:47 Antibiotics) Review of Systems ROS Statement: Those systems with pertinent positive or pertinent negative responses have been documented in the HPI. ROS Other: All systems not noted in ROS Statement are negative. Past Medical History Past Medical History: Chest Pain / Angina, CVA/TIA, Diabetes Mellitus, Eye Disorder, GERD/Reflux, Hypertension, Osteoarthritis (OA), Sleep Apnea/CPAP/B IPAP, Thyroid Disorder Additional Past Medical History / Comment(s): glaucoma- Receives eye injections., blind left eye, states hx of silent TIA's, states pain in back, knees, legs & feet., oxygen at night- does not know how much oxygen., frequent constipation, eczema., pt states she is [facility] [place]- does not know what they are because she throws the bottles out when they are empty., will bring names of meds if she gets them., states liver disease. History of Any Multi-Drug Resistant Organisms: None Reported Past Surgical History: Back Surgery, Joint Replacement, Orthopedic Surgery Additional Past Surgical History / Comment(s): back surgery with metal/screws, e ye sx for glaucoma, rt carpal tunnel, removal of benign cyst on ovary, right total knee replacement Past Anesthesia/Blood Transfusion Reactions: No Reported Reaction, Motion S ickness Past Psychological History: Anxiety, Depression Smoking Status: Former smoker Past Alcohol Use History: Rare Past Drug Use History: None Reported - Past Family History Mother Family Medical History: No Reported History General Exam Limitations: no limitations General appearance: alert, in no apparent distress, anxious Head exam: Present: atraumatic, normocephalic, normal inspection Eye exam: Present: normal appearance, PERRL, EOMI. Absent: scleral icterus, conjunctival injection, periorbital swelling ENT exam: Present: normal exam, mucous membranes moist Neck exam: Present: normal inspection. Absent: tenderness, meningismus, lymphadenopathy Respiratory exam: Present: normal lung sounds bilaterally. Absent: respiratory distress, wheezes, rales, rhonchi, stridor Cardiovascular Exam: Present: regular rate, normal rhythm, normal heart sounds. Absent: systolic murmur, diastolic murmur, rubs, gallop, clicks GI/Abdominal exam: Present: soft, normal bowel sounds. Absent: distended, te nderness, guarding, rebound, rigid Extremities exam: Present: normal inspection, full ROM, normal capillary refill. Absent: tenderness, pedal edema, joint swelling, calf tenderness Back exam: Present: normal inspection Neurological exam: Present: alert, oriented X3, CN II-XII intact Psychiatric exam: Present: normal affect, normal mood Skin exam: Present: warm, dry, intact, normal color. Absent: rash Course Vital Signs 09/09/23 09/09/23 11:44 14:44 Temperature 98.4 F 98.1 F Pulse Rate 55 L 76 Respiratory 22 18 Rate Blood Pressure 116/63 97/68 O2 Sat by Pulse 94 L 99 Oximetry - Reevaluation(s) Reevaluation #1: 09/09/23 14:04 Medical record is reviewed Reevaluation #2: 09/09/23 14:04 Patient's symptoms are improved Reevaluation #3: 09/09/23 14:04 Patient informed of results and questions answered Reevaluation #4: 09/09/23 14:04 Was pt. sent in by a medical professional or institution (, PA, FROZEN PIE MAKER, urgent care, hospital, or fpc...) When possible be specific @ -no Did you speak to anyone other than the patient for history (EMS, parent, family, police, friend...)? What history was obtained from this source @ -no Did you review nursing and triage notes (agree or disagree)? Why? @ -agree Are old charts reviewed (outside hosp., previous admission, EMS record, old EKG, old radiological studies, urgent care reports/EKG's, fpc records)? Report findings @ -yes Differential Diagnosis (chest pain, altered mental status, abdominal pain women, abdominal pain men, vaginal bleeding, weakness, fever, dyspnea, syncope, headache, dizziness, GI bleed, back pain, seizure, CVA, palpatations, mental health, musculoskeletal)? @ -prior EKG interpreted by me (3pts min.). @ -yes X-rays interpreted by me (1pt min.). @ -no CT interpreted by me (1pt min.). @ -yes negative for acute disease U/S interpreted by me (1pt. min.). @ -no What testing was considered but not performed or refused? (CT, X-rays, U/S, labs)? Why? @ -none What meds were considered but not given or refused? Why? @ -none Did you discuss the management of the patient with other professionals (professionals i.e. , PA, FROZEN PIE MAKER, lab, RT, psych nurse, psychosocial rehabilitation counselor, hydraulic plumber helper, teacher, mortgage loan officer originator, case work aide)? Give summary @ -no Was smoking cessation discussed for >3mins.? @ -no Were there social determinants of health that impacted care today? How? (Homelessness, low income, unemployed, alcoholism, drug addiction, transportation, low edu. Level, literacy, decrease access to med. care, retirement, rehab)? @ -none Was there de-escalation of care discussed even if they declined (Discuss DNR or withdrawal of care, Hospice)? DNR status @ -no What co-morbidities impacted this encounter? (DM, HTN, Smoking, COPD, CAD, Cancer, CVA, ARF, Chemo, Hep., AIDS, mental health diagnosis, sleep apnea, morbid obesity)? @ -none Was patient admitted / discharged? Hospital course, mention meds given and route, prescriptions, significant lab abnormalities, going to OR and other pertinent info. @ - 82 female to the ER for evaluation of a recent fall fall with back pain. Patient's pain is well-controlled here in the ER, patient will be discharged home back pain is currently improved Discharge Was critical care preformed (if so, how long)? @ -no Diagnosis/symptom? @ -Fall, back contusion, weakness Undiagnosed new problem with uncertain prognosis? @ -no Drug Therapy requiring intensive monitoring for toxicity (Heparin, Nitro, Insulin, Cardizem)? @ -no Were any procedures done? @ -no Acute, or Chronic, or Acute on Chronic? @ -Acute Uncomplicated (without systemic symptoms) or Complicated (systemic symptoms)? @ -Complicated Side effects of treatment? @ -no Exacerbation, Progression, or Severe Exacerbation? @ -exacerbation Poses a threat to life or bodily function? How? (Chest pain, [place], [place], pneumonia, PE, COPD, DKA, ARF, appy, cholecystitis, CVA, Diverticulitis, Homicidal, Suicidal, threat to staff... and all critical care pts) @ -yes with extremes of age Reevaluation #5: 09/09/23 14:04 Differential Back Pain: Strain, zoster, cauda equina syndrome, epidural abscess, vertebral osteomyelitis, discitis, fracture, subluxation, disc herniation, DJD, spinal stenosis, dissection, AAA, pancreatitis, peptic ulcer disease, pyelonephritis, kidney stone, this is not meant to be an all-inclusive list. Medical Decision Making - Medical Decision Making 82 female to the ER for evaluation of a recent fall fall with back pain. Patient's pain is well-controlled here in the ER, patient will be discharged home back pain is currently improved - Lab Data Lab Results 09/09/23 Range/Units 12:11 Urine Color Colorless Urine Appearance Cloudy H (Clear) Urine pH 6.5 (5.0-8.0) Ur Specific [place] 1.007 (1.001-1.035) Urine Protein Negative (Negative) Urine Glucose (UA) Negative (Negative) Urine Ketones Negative (Negative) Urine Blood Negative (Negative) Urine Nitrite Negative (Negative) Urine Bilirubin Negative (Negative) Urine Urobilinogen <2.0 (<2.0) mg/dL Ur Leukocyte Esterase Negative (Negative) Urine RBC 1 (0-5) /hpf Urine WBC 2 (0-5) /hpf Ur Squamous Epith Cells 1 (0-4) /hpf Hyaline Casts 1 (0-2) /lpf - Radiology Data Radiology results: report reviewed (CT LS CT adbPelvis is negative for acute dis ase), image reviewed Disposition Clinical Impression: Fall, Back pain, Back contusion Disposition: HOME SELF-CARE Instructions (If sedation given, give patient instructions): Fall Prevention for Older Adults (ED), Contusion in Adults (ED) Is patient prescribed a controlled substance at d/c from ED?: No Referrals: Arsalan Garcia MD [Primary Care Provider] - 1-2 days Time of Disposition: 14:00
[2023-09-09] MEDS: HYDROmorphone 1 MG/ML 1 ML SYRINGE IM STA (12:27)
--- NOTE | 2023-09-09 13:48 | CT ---
EXAMINATION TYPE: CT lumbar spine wo con DATE OF EXAM: 09/09/2023 COMPARISON: 08/07/2010 HISTORY: Fall, pain CT DLP: 993.6 mGycm CONTRAST: None TECHNIQUE: CT of the lumbar spine is performed on a spiral scan at 3 mm thick sections. Reconstructed images are performed in the coronal and sagittal planes. FINDINGS: There is mild retrolisthesis of the upper lumbar spine at L1-2, L2-3, and L3-4. Pedicle scr ews are present L4-L5. These maintain orientation with the sacrum. There is loss of disc height prese nt at L1-L2 3 L3-4. Remaining disc heights are preserved. Findings appear stable from comparison. L2-3: Posterior endplate spurring has moderate anterior thecal sac compression posterior to the L3 le singh. Facet hypertrophy and ligamentum flavum laxity is present. Spinal canal stenosis is present. L3-L4: This disc level is nondiagnostic due to significant beam hardening artifact. Spinal canal natasha ot be evaluated. L4-5: No spinal canal stenosis is present. Laminectomies been performed. Foramen are patent L5-S1: No focal disc herniation or significant disc bulge is evident. No spinal canal stenosis. Lig amentum flavum laxity is present. Spinal canal stenosis is not evident. IMPRESSION: Spinal canal stenosis due to endplate spurring and ligamentum flavum laxity at the L5-3 level. 2. There is limitation on portions of the examination discussed above. 3. Multilevel degenerative disc changes and retrolisthesis within the upper lumbar spine.
--- NOTE | 2023-09-09 14:03 | CT ---
EXAMINATION TYPE: CT abdomen pelvis wo con DATE OF EXAM: 09/09/2023 COMPARISON: None INDICATION: Fall x 2 Saturday DLP: 993.6 mGycm, Automated exposure control for dose reduction was used. CONTRAST: 0 mL of Isovue 300. Study performed without Oral Contrast TECHNIQUE: Axial images were obtained from above the diaphragm to the pubic rami in the axial plane a t 5 mm thick sections. Reconstructed images are reviewed on the computer in the coronal plane. FINDINGS: Limited CT sections are obtained the lung bases. The lung bases are clear. Large dense calcificatio ns at the right infrahilar region. Vascular calcification of the aorta. CT ABDOMEN: There is a 3 cm opening in the anterior abdominal wall with multiple prominent loops of c olon. Obstruction however is not clearly identified. Liver: Scattered punctate calcifications are present. Spleen: Multiple scattered calcifications are within the spleen. Pancreas: Normal Adrenal glands: The adrenal glands are normal. Gallbladder: Cholelithiasis is present. Kidneys: No masses are evident. No hydronephrosis is present. No cysts are present. No renal stone s are evident. Aorta: Vascular calcification is within the aorta. Inferior vena cava: Normal. CT PELVIS: No free fluid within the abdomen or pelvis. Loops of bowel within the abdomen and pelvis are normal. Scattered diverticula are throughout the sig moid colon. No inflammatory changes to suggest acute diverticulitis is evident. The study is later al contrast limiting bowel evaluation. Appendix: Normal as visualized. Urinary bladder: Normal. Genitourinary structures: Uterus and ovaries are not identified. Osseous structures: No suspicious lytic or sclerotic lesions evident. Beam hardening artifact from fi xation at L4-5 is evident. No fractures are evident. IMPRESSION: 1. No acute abdomen process. 2. Cholelithiasis. 3. Anterior abdominal wall hernia without obstructed loops of colon. 4. No acute posttraumatic changes.
[2023-09-09 14:49] VITALS: BP 97/68; PULSE 76; RESP 18; TEMP 98.1
[2023-09-09 15:00] LABS: Appearance,Urine Cloudy (Clear); Bilirubin,Urine Negative (Negative); Blood,Urine Negative (Negative); Color,Urine Colorless; Glucose,Urine (UA) Negative (Negative); Hyaline Casts,Urine 1 /lpf (0-2); Ketones,Urine Negative (Negative); Leukocyte Esterase,Urine Negative (Negative); Nitrite,Urine Negative (Negative); PH, Urine 6.5 (5.0-8.0); Protein,Urine Negative (Negative); RBC,Urine 1 /hpf (0-5); Specific Gravity,Urine 1.007 (1.001-1.035); Squamous Epithelial Cell,Urine 1 /hpf (0-4); Urobilinogen,Urine <2.0 mg/dL (<2.0); WBC,Urine 2 /hpf (0-5)
== END 2023-09-09 14:46 | disposition home or self-care (01) ==
LOC: EC 11:41
DX: S20.229A Contusion of unspecified back wall of thorax, initial encounter (principal); E11.9 Type 2 diabetes mellitus without complications; F32.A Depression, unspecified; F41.9 Anxiety disorder, unspecified; G47.30 Sleep apnea, unspecified; I10 Essential (primary) hypertension; K21.9 Gastro-esophageal reflux disease without esophagitis; M19.90 Unspecified osteoarthritis, unspecified site; E07.9 Disorder of thyroid, unspecified; Z79.84 Long term (current) use of oral hypoglycemic drugs; Z79.890 Hormone replacement therapy; Z79.899 Other long term (current) drug therapy; Z87.891 Personal history of nicotine dependence; Z88.0 Allergy status to penicillin; Z88.2 Allergy status to sulfonamides; W18.30XA Fall on same level, unspecified, initial encounter
CPT/HCPCS: 99284 ×2; 96372 ×2; 81001; 72131; 74176; J1170

== ENCOUNTER → 2023-12-24 | Outpatient (CLI) | payer MEDICARE, OTHER ==
[2023-12-24 18:42] LABS: Basophils # (A) 0.02 X 10*3/uL (0.00-0.10); Basophils % (A) 0.4 %; Eosinophils # (A) 0.26 X 10*3/uL (0.04-0.35); HCT 36.5 % (37.2-46.3); HGB 11.5 g/dL (12.0-15.0); Lymphocytes # (A) 1.74 X 10*3/uL (0.90-5.00); Lymphocytes % (A) 33.7 %; MCH 29.9 pg (27.0-32.0); MCHC 31.5 g/dL (32.0-37.0); MCV 95.1 FL (80.0-97.0); Mean Platelet Volume 11.3 FL (9.5-12.2); Monocytes # (A) 0.51 X 10*3/uL (0.20-1.00); Monocytes % (A) 9.9 %; NRBC Per 100 WBC 0 X 10*3/uL (0.00-0.01); Neutrophils # (A) 2.62 X 10*3/uL (1.80-7.70); Neutrophils % (A) 50.8 %; Platelet Count 208 X 10*3/uL (140-440); RBC 3.84 X 10*6/uL (4.10-5.20); RDW 13.5 % (11.5-14.5); WBC 5.16 X 10*3/uL (4.50-10.00)
[2023-12-24 20:26] LABS: ALT 8 U/L (8-44); AST 16 U/L (13-35); Albumin/Globulin Ratio 1.82 Ratio (1.60-3.17); Alkaline Phosphatase 95 U/L (41-126); BUN/Creat Ratio 18.78 Ratio (12.00-20.00); Blood Urea Nitrogen 16.9 mg/dL (9.0-27.0); Calcium 9.8 mg/dL (8.7-10.3); Carbon Dioxide 24.7 mmol/L (21.6-31.8); Chloride 100 mmol/L (96-109); Chol/HDL Ratio 2.81 Ratio; Globulin 2.2 g/dL (1.6-3.3); Glucose 88 mg/dL (70-110); LDL Cholesterol,Calculated 91.7 mg/dL (0.0-131.0); Potassium 4.3 mmol/L (3.5-5.5); Sodium 141 mmol/L (135-145); Total Bilirubin 0.4 mg/dL (0.3-1.2); Total Protein 6.2 g/dL (6.2-8.2)
== END | disposition home or self-care (01) ==
LOC: LABWHC1 09:23
PROVIDERS: ATTEND Family Medicine
DX: I10 Essential (primary) hypertension (principal); E11.9 Type 2 diabetes mellitus without complications; Z79.899 Other long term (current) drug therapy
CPT/HCPCS: 36415; 80053; 80061; 83036; 84443; 85025

== ENCOUNTER → 2024-05-21 | Outpatient (CLI) | payer MEDICARE, OTHER ==
--- NOTE | 2024-05-21 15:08 | CT ---
EXAMINATION TYPE: CT chest wo con CT DLP: 278.9 mGycm, Automated exposure control for dose reduction was used. DATE OF EXAM: 05/21/2024 1:42 PM COMPARISON: CT chest 08/05/2021, left rib radiograph 10/11/2023. CLINICAL INDICATION:Female, 83 years old with history of S22.31XS FRACTURE OF ONE RIB, RIGHT SIDE, SE QUELA; PHH, Rib fx TECHNIQUE: Multiple axial images were obtained through the chest without IV contrast. Lack of IV or o ral contrast limits evaluation of solid and hollow organ viscera. . Coronal and sagittal reformats re viewed. FINDINGS: LUNGS/ PLEURA: No pleural effusion, pneumothorax, or focal consolidation. Left lower lobe small calci fied granuloma. Similar diffuse bronchiectatic changes . Stable left upper lobe and a few scattered n odular densities measuring up to 6 mm. Stable from 2020 and considered benign. No new suspicious pulm onary nodules. AIRWAY: Patent and unremarkable.. HEART: Size within normal limits. No pericardial effusion. Moderate coronary arterial calcifications. MEDIASTINUM: No gross evidence of adenopathy. Calcified mediastinal and bilateral hilar lymph nodes. VASCULATURE: No aortic aneurysm. Mild atherosclerotic calcification of the aorta and its branches. MUSCULOSKELETAL: Bilateral healing rib nondisplaced fractures including healing right anterior second and third rib fractures with poor visualization of the fracture lines. Healing nondisplaced left-roseanne ed lateral to posterior sixth through 10th rib fractures with the seventh and ninth ribs demonstratin g fracture lines still. The ninth and 10th ribs were segmental fractures. Partial visualization of yared mbar fusion hardware. Degenerative disc disease of the lumbar spine. SOFT TISSUES/LYMPH NODES: Unremarkable. LOWER NECK: Stable thyromegaly with enlarged left thyroid lobe. UPPER ABDOMEN: Calcified granulomas within the liver and spleen. Layering hyperdensity within the gal lbladder consistent with gallstones. IMPRESSION: 1. Healing nondisplaced bilateral rib fractures with callus formation and only the left seventh and 1 0th ribs demonstrating fracture lines still. No evidence for pneumothorax or pleural effusion. 2. Sequelae of prior granulomatous disease. 3. Stable thyromegaly with enlarged left thyroid lobe. 4. Stable few pulmonary nodules dating back to 2020 and considered benign. No new or enlarging pulmon carrington nodules. 5. Cholelithiasis. [facility], , 05/21/2024 3:05 PM
== END | disposition home or self-care (01) ==
LOC: RADCTMAIN 12:57
PROVIDERS: ATTEND Family Medicine
DX: S22.31XS Fracture of one rib, right side, sequela
CPT/HCPCS: 71250

== ENCOUNTER 2024-06-01 22:42 | Emergency (ER) | payer MEDICARE, OTHER ==
[2024-06-01 22:53] VITALS: RESP 18; TEMP 98.9
[2024-06-01] MEDS: BACITRACIN OINT 1 EACH PACKET TOPICAL ONE (23:26)
--- NOTE | 2024-06-01 23:59 | ED ---
Eye Problem HPI - General Chief complaint: Eye Problems Stated complaint: eye injury Time Seen by Provider: 06/01/24 23:12 Source: patient, EMS, RN notes reviewed Mode of arrival: wheelchair Limitations: no limitations - History of Present Illness Initial comments: 83-year-old female presents emergency department via EMS chief complaint of right eye irritation. She states that she went to use some eyedrops was not pain attention states that she put some glue in her right eye. She states she cannot open her right eye now. Patient states he immediately stung when she put it in her eye. Patient denies any other trauma. - Related Data Home Medications Medication Instructions Recorded Confirmed Levothyroxine Sodium [Synthroid] 75 mcg PO DAILY 04/04/18 04/10/22 PARoxetine HCL 40 mg PO DAILY 04/04/18 04/10/22 traMADol HCL 100 mg PO TID PRN 09/14/20 04/10/22 Cholecalciferol [Vitamin D3 (25 50 mcg PO DAILY 08/04/21 04/10/22 Mcg = 1000 Iu)] Furosemide [Lasix] 20 mg PO DAILY 08/04/21 04/10/22 Albuterol Nebulizer 1 dose INHALATION DIRECTED PRN 04/10/22 Atorvastatin [Lipitor] 20 mg PO HS 04/10/22 04/10/22 Bimatoprost [Lumigan 0.01% Ophth 1 drop BOTH EYES HS 04/10/22 04/10/22 Soln] Dorzolamide 2% [Trusopt 2%] 1 drops BOTH EYES BID 04/10/22 04/10/22 Dulaglutide [Trulicity] 0.75 mg SQ WEEKLY 04/10/22 04/10/22 Gabapentin [Neurontin] 300 mg PO TID 04/10/22 04/10/22 Lidocaine 5% Patch [Lidoderm] 1 patch TOPICAL DAILY PRN MDD p 04/10/22 04/10/22 Memantine HCl [Namenda] 5 mg PO BID 04/10/22 04/10/22 Multivit with Calcium,Iron,Min 1 each PO DAILY 04/10/22 04/10/22 [Women's Multivitamin] Neurvia -Brain Supplement 1 tab PO DAILY 04/10/22 Omeprazole 40 mg PO DAILY 04/10/22 04/10/22 metFORMIN HCL [Glucophage] 1,000 mg PO BID 04/10/22 04/10/22 Previous Rx's Medication Instructions Recorded Aspirin 81 mg PO DAILY tab 08/05/21 Allergies Allergy/AdvReac Type Severity Reaction Status Date / Time Penicillins Allergy Rash/Hives Verified 06/01/24 22:53 Sulfa (Sulfonamide Allergy Rash/Hives Verified 06/01/24 22:53 Antibiotics) Review of Systems ROS Statement: Those systems with pertinent positive or pertinent negative responses have been documented in the HPI. ROS Other: All systems not noted in ROS Statement are negative. Past Medical History Past Medical History: Chest Pain / Angina, CVA/TIA, Diabetes Mellitus, Eye Disorder, GERD/Reflux, Hypertension, Osteoarthritis (OA), Sleep Apnea/CPAP/BIPAP, Thyroid Disorder Additional Past Medical History / Comment(s): glaucoma- Receives eye injections., blind left eye, states hx of silent TIA's, states pain in back, knees, legs & feet., oxygen at night- does not know how much oxygen., frequent constipation, eczema., pt states she is [facility] [place]- does not know what they are because she throws the bottles out when they are empty., will bring names of meds if she gets them., states liver disease. History of Any Multi-Drug Resistant Organisms: None Reported Past Surgical History: Back Surgery, Joint Replacement, Orthopedic Surgery Additional Past Surgical History / Comment(s): back surgery with metal/screws, eye sx for glaucoma, rt carpal tunnel, removal of benign cyst on ovary, right total knee replacement Past Anesthesia/Blood Transfusion Reactions: No Reported Reaction, Motion Sickness Past Psychological History: Anxiety, Depression Smoking Status: Former smoker Past Alcohol Use History: Rare Past Drug Use History: None Reported - Past Family History Mother Family Medical History: No Reported History General Exam Limitations: no limitations General appearance: alert, in no apparent distress Head exam: Present: atraumatic, normocephalic, normal inspection Eye exam: Present: PERRL, EOMI, conjunctival injection, other (Right eye Lids are glued together). Absent: normal appearance, scleral icterus, periorbital swelling ENT exam: Present: normal exam, mucous membranes moist Neck exam: Present: normal inspection, full ROM. Absent: tenderness, meningismus, lymphadenopathy Respiratory exam: Present: normal lung sounds bilaterally. Absent: respiratory distress, wheezes, rales, rhonchi, stridor Cardiovascular Exam: Present: regular rate, normal rhythm, normal heart sounds. Absent: systolic murmur, diastolic murmur, rubs, gallop, clicks Course Vital Signs 06/01/24 22:51 Temperature 98.9 F Pulse Rate 81 Respiratory 18 Rate Blood Pressure 126/73 O2 Sat by Pulse 96 Oximetry Procedures - Procedures Initial comment: Right eye, eyelashes were glued together, bacitracin was applied, warm compresses, Q-tip was used to separate eyelashes with no trauma no complications. Medical Decision Making - Medical Decision Making Was pt. sent in by a medical professional or institution ([employer], [employer], urgent care, hospital, or jail...) When possible be specific @ -No Did you speak to anyone other than the patient for history (EMS, parent, family, police, friend...)? What history was obtained from this source @ -No Did you review nursing and triage notes (agree or disagree)? Why? @ -I reviewed and agree with nursing and triage notes Were old charts reviewed (outside hosp., previous admission, EMS record, old EKG, old radiological studies, urgent care reports/EKG's, jail records)? Report findings @ -No old charts were reviewed Differential Diagnosis (chest pain, altered mental status, abdominal pain women, abdominal pain men, vaginal bleeding, weakness, fever, dyspnea, syncope, headache, dizziness, GI bleed, back pain, seizure, CVA, palpatations, mental health, musculoskeletal)? @ -Foreign body right eye, glue right eyelashes, corneal abrasion EKG interpreted by me (3pts min.). @ -None X-rays interpreted by me (1pt min.). @ -None done CT interpreted by me (1pt min.). @ -None done U/S interpreted by me (1pt. min.). @ -None done What testing was considered but not performed or refused? (CT, X-rays, U/S, labs)? Why? @ -None What meds were considered but not given or refused? Why? @ -None Did you discuss the management of the patient with other professionals (professionals i.e. [facility], [employer], lab, RT, psych nurse, director of social media marketing, cabin agent, teacher, aoc director combat operations officer, case management social worker)? Give summary @ -No Was smoking cessation discussed for >3mins.? @ -No Was critical care preformed (if so, how long)? @ -No Were there social determinants of health that impacted care today? How? (Homelessness, low income, unemployed, alcoholism, drug addiction, transportation, low edu. Level, literacy, decrease access to med. care, group home, rehab)? @ -No Was there de-escalation of care discussed even if they declined (Discuss DNR or withdrawal of care, Hospice)? DNR status @ -No What co-morbidities impacted this encounter? (DM, HTN, Smoking, COPD, CAD, Cancer, CVA, ARF, Chemo, Hep., AIDS, mental health diagnosis, sleep apnea, morbid obesity)? @ -None Was patient admitted / discharged? Hospital course, mention meds given and route, prescriptions, significant lab abnormalities, going to OR and other pertinent info. @ -Discharge patient put adhesive to the right eye, eyelashes were glued together bacitracin was applied soften the glue and was removed patient has follow-up with ophthalmology tomorrow. Undiagnosed new problem with uncertain prognosis? @ -No Drug Therapy requiring intensive monitoring for toxicity (Heparin, Nitro, Insulin, Cardizem)? @ -No Were any procedures done? @ -No Diagnosis/symptom? @ foreign substance right eye Acute, or Chronic, or Acute on Chronic? @ -Acute Uncomplicated (without systemic symptoms) or Complicated (systemic symptoms)? @ -Uncomplicated Side effects of treatment? @ -No Exacerbation, Progression, or Severe Exacerbation? @ -No Poses a threat to life or bodily function? How? (Chest pain, USA, AR, pneumonia, PE, COPD, DKA, ARF, appy, cholecystitis, CVA, Diverticulitis, Homicidal, Suicidal, threat to staff... and all critical care pts) @ -No Disposition Clinical Impression: Foreign body of eyelid Narrative: glue eyelashes Disposition: HOME SELF-CARE Condition: Stable Additional Instructions: Follow-up with your eye doctor tomorrow. Please return to the Emergency Department if symptoms worsen or any other concerns. Is patient prescribed a controlled substance at d/c from ED?: No Referrals: Arsalan Garcia MD [Primary Care Provider] - 1-2 days Time of Disposition: 02:20
[2024-06-02] MEDS: ERYTHROMYCIN 5 MG/GM OPHTH OINT 3.5 GM TUBE RIGHT EYE STA (02:41)
[2024-06-02 02:42] VITALS: BP 124/72; PULSE 64
== END 2024-06-02 02:42 | disposition home or self-care (01) ==
LOC: EC 22:42
CPT/HCPCS: 65205; 99283

== ENCOUNTER 2024-06-12 10:36 | Emergency (ER) | payer MEDICARE, OTHER ==
[2024-06-12 10:45] VITALS: PULSE 68; RESP 18
--- NOTE | 2024-06-12 11:11 | ED ---
ENT HPI - General Chief complaint: ENT Stated complaint: R ear issue Time Seen by Provider: 06/12/24 10:49 Source: patient, family, RN notes reviewed Mode of arrival: wheelchair Limitations: no limitations - History of Present Illness Initial comments: This is an 83-year-old female who presents to the emergency department for a foreign body in her right ear. States that a couple of weeks ago she was cleaning her ear with a Q-tip and got the cotton end stuck. She told her daughter that she wanted to try to get this out with tweezers, however her mikayla cristine brought her here instead to make sure she avoided causing any further problems. Patient states that she waited this long because she wanted to see if she could get it to come out on her own. This is starting to cause some discomfort. - Related Data Home Medications Medication Instructions Recorded Confirmed Levothyroxine Sodium [Synthroid] 75 mcg PO DAILY 04/04/18 04/10/22 PARoxetine HCL 40 mg PO DAILY 04/04/18 04/10/22 traMADol HCL 100 mg PO TID PRN 09/14/20 04/10/22 Cholecalciferol [Vitamin D3 (25 50 mcg PO DAILY 08/04/21 04/10/22 Mcg = 1000 Iu)] Furosemide [Lasix] 20 mg PO DAILY 08/04/21 04/10/22 Albuterol Nebulizer 1 dose INHALATION DIRECTED PRN 04/10/22 Atorvastatin [Lipitor] 20 mg PO HS 04/10/22 04/10/22 Bimatoprost [Lumigan 0.01% Ophth 1 drop BOTH EYES HS 04/10/22 04/10/22 Soln] Dorzolamide 2% [Trusopt 2%] 1 drops BOTH EYES BID 04/10/22 04/10/22 Dulaglutide [Trulicity] 0.75 mg SQ WEEKLY 04/10/22 04/10/22 Gabapentin [Neurontin] 300 mg PO TID 04/10/22 04/10/22 Lidocaine 5% Patch [Lidoderm] 1 patch TOPICAL DAILY PRN MDD p 04/10/22 04/10/22 Memantine HCl [Namenda] 5 mg PO BID 04/10/22 04/10/22 Multivit with Calcium,Iron,Min 1 each PO DAILY 04/10/22 04/10/22 [Women's Multivitamin] Neurvia -Brain Supplement 1 tab PO DAILY 04/10/22 Omeprazole 40 mg PO DAILY 04/10/22 04/10/22 metFORMIN HCL [Glucophage] 1,000 mg PO BID 04/10/22 04/10/22 Previous Rx's Medication Instructions Recorded Aspirin 81 mg PO DAILY tab 08/05/21 Ciprofloxacin-Dexameth [Ciprodex 4 drops RIGHT EAR BID 7 Days #7.5 06/12/24 Otic Susp] ml Ciprofloxacin-Dexameth [Ciprodex 4 drops RIGHT EAR BID 7 Days #7.5 06/12/24 Otic Susp] ml Allergies Allergy/AdvReac Type Severity Reaction Status Date / Time Penicillins Allergy Rash/Hives Verified 06/01/24 22:53 Sulfa (Sulfonamide Allergy Rash/Hives Verified 06/01/24 22:53 Antibiotics) Review of Systems ROS Statement: Those systems with pertinent positive or pertinent negative responses have been documented in the HPI. ROS Other: All systems not noted in ROS Statement are negative. Past Medical History Past Medical History: Chest Pain / Angina, CVA/TIA, Dementia, Diabetes Mellitus, Eye Disorder, GERD/Reflux, Hypertension, Osteoarthritis (OA), Sleep Apnea/CPAP/BIPAP, Thyroid Disorder Additional Past Medical History / Comment(s): glaucoma- Receives eye injections., blind left eye, states hx of silent TIA's, states pain in back, knees, legs & feet., oxygen at night- does not know how much oxygen., frequent constipation, eczema., pt states she is waiting for [facility]s [facility] [place]- does not know what they are because she throws the bottles out when they are empty., will bring names of meds if she gets them., states liver diseas e. History of Any Multi-Drug Resistant Organisms: None Reported Past Surgical History: Back Surgery, Joint Replacement, Orthopedic Surgery Additional Past Surgical History / Comment(s): back surgery with metal/screws, eye sx for glaucoma, rt carpal tunnel, removal of benign cyst on ovary, right total knee replacement Past Anesthesia/Blood Transfusion Reactions: No Reported Reaction, Motion Sickness Past Psychological History: Anxiety, Depression Smoking Status: Former smoker Past Alcohol Use History: Rare Past Drug Use History: None Reported - Past Family History Mother Family Medical History: No Reported History General Exam Limitations: no limitations General appearance: alert, in no apparent distress Head exam: Present: atraumatic, normocephalic, normal inspection ENT exam: Present: other (Cotton visualized in the right ear canal) Respiratory exam: Present: normal lung sounds bilaterally. Absent: respiratory distress, wheezes, rales, rhonchi, stridor Cardiovascular Exam: Present: regular rate, normal rhythm, normal heart sounds. Absent: systolic murmur, diastolic murmur, rubs, gallop, clicks Neurological exam: Present: alert, oriented X3, CN II-XII intact Psychiatric exam: Present: normal affect, normal mood Skin exam: Present: warm, dry, intact, normal color. Absent: rash Course Vital Signs 06/12/24 06/12/24 10:43 11:56 Temperature 97.5 F L 97.8 F Pulse Rate 68 68 Respiratory 18 18 Rate Blood Pressure 121/58 122/63 O2 Sat by Pulse 95 96 Oximetry Procedures - Foreign Body Removal Ear Location: ear canal (R) Foreign Body Suspected: other (cotton) Foreign Body Removed: yes Foreign Body Removal Technique: forceps Tympanic Membrane Intact: Yes Patient Tolerated Procedure: well Complications: none Medical Decision Making - Medical Decision Making This is an 83-year-old female who presents to the emergency department for a foreign body in the right ear. Was pt. sent in by a medical professional or institution? @ -No Did you speak to anyone other than the patient for history? @ -No Did you review nursing and triage notes? @ -Yes, and I agree, it is accurate with regards to the patient's symptoms. Were old charts reviewed? @ -No Differential Diagnosis? @ -Foreign body, otitis media, otitis externa, eustachian tube dysfunction, this is not meant to be an all-inclusive list. EKG interpreted by me (3pts min.)? @ -Not obtained X-rays interpreted by me (1pt min.)? @ -Not obtained CT interpreted by me (1pt min.)? @ -Not obtained U/S interpreted by me (1pt. min.)? @ -Not obtained What testing was considered but not performed? (CT, X-rays, U/S, labs)? Why? @ -None What meds were considered but not given? Why? @ -None Did you discuss the management of the patient with other professionals? @ -No Did you reconcile home meds? @ -No Was smoking cessation discussed for >3mins.? @ -No Was critical care preformed (if so, how long)? @ -No Were there social determinants of health that impacted care today? How? (Homelessness, low income, unemployed, alcoholism, drug addiction, transportation, low edu. Level, literacy, decrease access to med. care, snf, rehab)? @ -No Was there de-escalation of care discussed even if they declined? (Discuss DNR or withdrawal of care, Hospice)? @ -No What co-morbidities impacted this encounter? (DM, HTN, Smoking, COPD, CAD, Cancer, CVA, Hep., AIDS, mental health diagnosis, sleep apnea, morbid obesity)? @ -None Was patient admitted / discharged? @ -Discharged. The piece of cotton was visualized in the right ear canal. This was easily removed with alligator forceps. Patient advised that she needs to avoid putting things in her ear. She did have some irritation in the ear canal and Ciprodex drops were prescribed for any potential associated otitis externa. Patient discharged home in stable condition. Case discussed with ED attending Dr. Moreno. Return precautions reviewed in depth, the patient is instructed to return to the emergency department with any new, worsening, or concerning symptoms. Patient verbalized understanding. Undiagnosed new problem with uncertain prognosis? @ -None Drug Therapy requiring intensive monitoring for toxicity (Heparin, Nitro, Insulin, Cardizem)? @ -None Were any procedures done? @ -Foreign body removal in the right ear Diagnosis/symptom? @ -Foreign body in the right ear Acute, or Chronic, or Acute on Chronic? @ -Acute Uncomplicated (without systemic symptoms) or Complicated (systemic symptoms)? @ -Uncomplicated Side effects of treatment? @ -None Exacerbation, Progression, or Severe Exacerbation] @ -Not applicable Poses a threat to life or bodily function? @ -No Disposition Clinical Impression: Foreign body in right ear Disposition: HOME SELF-CARE Instructions (If sedation given, give patient instructions): Ear Foreign Body (ED) Additional Instructions: Return to the emergency department with any new, worsening, or concerning symptoms. Use the Ciprodex drops as 4 drops to the right ear twice daily for 7 days. Follow-up with your primary care provider. Prescriptions: Ciprofloxacin-Dexameth [Ciprodex Otic Susp] 4 drops RIGHT EAR BID 7 Days #7.5 ml Ciprofloxacin-Dexameth [Ciprodex Otic Susp] 4 drops RIGHT EAR BID 7 Days #7.5 ml Is patient prescribed a controlled substance at d/c from ED?: No Referrals: Arsalan Garcia MD [Primary Care Provider] - 1-2 days Time of Disposition: 11:11
[2024-06-12 11:57] VITALS: BP 122/63; TEMP 97.8
== END 2024-06-12 11:58 | disposition home or self-care (01) ==
LOC: EC 10:36
DX: T16.1XXA Foreign body in right ear, initial encounter (principal); Z87.891 Personal history of nicotine dependence; Z88.0 Allergy status to penicillin; Z88.2 Allergy status to sulfonamides; Z86.73 Personal history of transient ischemic attack (TIA), and cerebral infarction without residual deficits
CPT/HCPCS: 69200; 99282

== ENCOUNTER 2024-07-22 14:25 | Emergency (ER) | payer MEDICARE, OTHER ==
[2024-07-22 14:46] VITALS: RESP 18
[2024-07-22] MEDS: ACETAMINOPHEN TAB 325 MG TAB PO STA (16:24)
[2024-07-22] MEDS: traMADol 50 MG TAB PO STA (16:25)
[2024-07-22] MEDS: SODIUM CHLORIDE 0.9% 500 ML 500 ML IV ONE (16:27)
[2024-07-22 16:51] LABS: Basophils % (A) 0 %; Eosinophils # (A) 0.4 k/uL (0-0.7); Eosinophils % (A) 6 %; HCT 35.1 % (34.0-46.0); HGB 11.2 gm/dL (11.4-16.0); Lymphocytes # (A) 1.6 k/uL (1.0-4.8); Lymphocytes % (A) 27 %; MCH 29.6 pg (25.0-35.0); MCHC 31.9 g/dL (31.0-37.0); MCV 92.9 fL (80.0-100.0); Mean Platelet Volume 7.7; Monocytes # (A) 0.4 k/uL (0-1.0); Monocytes % (A) 7 %; Neutrophils # (A) 3.4 k/uL (1.3-7.7); Neutrophils % (A) 57 %; Platelet Count 250 k/uL (150-450); RBC 3.78 m/uL (3.80-5.40); RDW 14.1 % (11.5-15.5); WBC 5.9 k/uL (3.8-10.6)
[2024-07-22 17:03] LABS: ALT 16 U/L (4-34); AST 26 U/L (14-36); African American GFR (CKD) 34 (>60 ml/min/1.73 sqM); Albumin 4.3 g/dL (3.5-5.0); Alkaline Phosphatase 122 U/L (38-126); Anion Gap 9 mmol/L; Blood Urea Nitrogen 42 mg/dL (7-17); Calcium 10.1 mg/dL (8.4-10.2); Carbon Dioxide 26 mmol/L (22-30); Chloride 104 mmol/L (98-107); Glucose 79 mg/dL (74-99); Non-African American GFR(CKD) 30 (>60 ml/min/1.73 sqM); Potassium 4.2 mmol/L (3.5-5.1); Sodium 139 mmol/L (137-145); Total Bilirubin 0.5 mg/dL (0.2-1.3); Total Protein 6.9 g/dL (6.3-8.2)
--- NOTE | 2024-07-22 17:19 | CT ---
EXAMINATION TYPE: CT brain cspine wo con DATE OF EXAM: 07/22/2024 5:05 PM COMPARISON: 08/29/2020 CLINICAL INDICATION: Female, 83 years old with history of fall, Fall, back pain TECHNIQUE: CT of the brain is performed utilizing 3 mm thick sections through the posterior fossa and 3 mm thick sections through the remaining calvarium. Study is performed within 24 hours of arrival to the hospital. Contrast used: mL of , (none if empty) CT DLP: 2293.3 mGycm, Automated exposure control for dose reduction was used. FINDINGS: No abnormal hyperdensity is present to suggest an acute intracranial hemorrhage. No mass lesion is evident. No acute infarcts are evident. Mild periventricular white matter hypodensity is present, likely on t he basis of chronic white matter ischemic changes. Ventricles and sulci are prominent for the patient age. Paranasal sinuses and mastoid air cells within the [id number] are clear. IMPRESSIONS: 1. No acute intracranial process. Follow-up MRI can be performed as clinically indicated. 2. Mild periventricular white matter ischemic changes CT cervical spine. COMPARISON: None TECHNIQUE: CT of the cervical spine is performed in the axial plane at 2 mm thick sections. Reconstr ucted images in the coronal, and sagittal plane are reviewed on the computer. FINDINGS: No acute fractures are evident. There is some mild retrolisthesis of C3 on C4. Minimal anterolisthesis of C5 in relation to C4 and C6 may be present. No spinal canal stenosis is present. There is loss of disc height and endplate degenerative changes noted throughout the cervical spine. C omplete loss is evident C6-7. Advanced degenerative changes are present C4-5 C5-6 C2-3 Vertebral body heights are preserved. No spinal canal stenosis is evident. Foraminal stenosis is present at C5-6 and C6-7 and to a lesser degree C4-5 and C3-4. IMPRESSION: 1. Advanced degenerative disc changes with endplate changes throughout cervical spine. 2. Mild anterior and retrolisthesis within the cervical spine without stenosis 3. Findings are progressive from 2020 [facility], , 07/22/2024 5:16 PM
[2024-07-22 17:20] LABS: INR 0.9 (<1.2); Partial Thromboplastin Time 24.5 sec (22.0-30.0); Prothrombin Time 10.2 sec (10.0-12.5)
--- NOTE | 2024-07-22 17:32 | CT ---
EXAMINATION TYPE: CT thor lumbar spine wo con DATE OF EXAM: 07/22/2024 5:05 PM COMPARISON: 09/09/2023 CLINICAL INDICATION: Female, 83 years old with history of fall, fall, back pain TECHNIQUE: Axial images 3 mm thick sections. Reconstructed images in the coronal and sagittal planes. Contrast used: mL of , (none if empty) Oral contrast used: (none if empty) FINDINGS: L2-3: There is a large central spur with moderate anterior thecal sac compression. Some spinal canal stenosis is likely present estimated at 0.7 cm. Facet degenerative changes are present L5-S1. Pedicle screws are present L4 and L5. No spinal canal s tenosis present. Laminectomies been performed. Vertebral body heights are preserved. No focal disc herniations or significant disc bulges are eviden t. Mild scoliosis may be present. Some minimal retrolisthesis of L3 posteriorly at L4, L2 to posterio r at L3 and L4 and L1 posterior L2. Note is made of a large calcification in subcarinal region IMPRESSION: 1. NO SUSPICIOUS ACUTE CHANGES THORACIC AND LUMBAR SPINE. 2. LARGE POSTERIOR SPUR CONTRIBUTING TO SPINAL CANAL STENOSIS AT L2-3. 3. DIFFUSE LOSS OF DISC HEIGHT THROUGHOUT THE THORACIC AND LUMBAR SPINE [facility], , 07/22/2024 5:30 PM
--- NOTE | 2024-07-22 17:35 | XR ---
EXAMINATION TYPE: XR pelvis AP view DATE OF EXAM: 07/22/2024 4:59 PM COMPARISON: 11/26/2018 CLINICAL INDICATION: Female, 83 years old with history of fall, TECHNIQUE: AP view(s) obtained. FINDINGS: Femoral heads articulate with the acetabulum. Symphysis pubis and sacroiliac joints are normal. Posts urgical fixation L4-5 is evident. Normal bowel gas is present. IMPRESSION: 1. No acute osseous abnormalities AP pelvis [facility], , 07/22/2024 5:33 PM
--- NOTE | 2024-07-22 17:39 | XR ---
EXAMINATION TYPE: XR chest 1V portable DATE OF EXAM: 07/22/2024 4:59 PM COMPARISON: 10/11/2023 CLINICAL INDICATION: Female, 83 years old with history of fall, TECHNIQUE: XR chest 1V portable view(s) obtained. FINDINGS: The heart size is normal. The calcified subcarinal lymphadenopathy is evident. The pulmonary vasculature is normal. The lungs are clear. IMPRESSION: 1. No acute pulmonary process. [facility], , 07/22/2024 5:37 PM
[2024-07-22 19:05] LABS: Appearance,Urine Clear (Clear); Bilirubin,Urine Negative (Negative); Blood,Urine Negative (Negative); Color,Urine Colorless; Glucose,Urine (UA) Negative (Negative); Ketones,Urine Negative (Negative); Leukocyte Esterase,Urine Negative (Negative); Nitrite,Urine Negative (Negative); Protein,Urine Negative (Negative); Specific Gravity,Urine 1.008 (1.001-1.035); Urobilinogen,Urine <2.0 mg/dL (<2.0)
--- NOTE | 2024-07-22 19:45 | ED ---
General Adult HPI - General Chief complaint: Fall Stated complaint: multiple falls Time Seen by Provider: 07/22/24 16:05 Source: patient, family, EMS, RN notes reviewed, old records reviewed Mode of arrival: EMS Limitations: physical limitation - History of Present Illness Initial comments: Is an 83-year-old female who presents to the emergency department after a fall. Patient has had repeated falls over the last few days seems to be more of a recurrent issue. Does have a history of dementia, diabetes, hypertension. Currently is ANO x 4. Does live next to her daughter who thinks that her dementia may flareup occasionally and she forgets that she needs her walker to ambulate which is probably causing the falls. Denies losing consciousness. Unknown if she hit her head. Unknown if she is having any fevers or chills. Other than chronic back pain has no acute complaints at this time. Presents for further evaluation. Patient is not on any blood thinners.Denies urinary or bowel incontinence or retention. Denies lower extremity paralysis. Denies saddle paresthesias. - Related Data Home Medications Medication Instructions Recorded Confirmed Levothyroxine Sodium [Synthroid] 75 mcg PO DAILY 04/04/18 04/10/22 PARoxetine HCL 40 mg PO DAILY 04/04/18 04/10/22 traMADol HCL 100 mg PO TID PRN 09/14/20 04/10/22 Cholecalciferol [Vitamin D3 (25 50 mcg PO DAILY 08/04/21 04/10/22 Mcg = 1000 Iu)] Furosemide [Lasix] 20 mg PO DAILY 08/04/21 04/10/22 Albuterol Nebulizer 1 dose INHALATION DIRECTED PRN 04/10/22 Atorvastatin [Lipitor] 20 mg PO HS 04/10/22 04/10/22 Bimatoprost [Lumigan 0.01% Ophth 1 drop BOTH EYES HS 04/10/22 04/10/22 Soln] Dorzolamide 2% [Trusopt 2%] 1 drops BOTH EYES BID 04/10/22 04/10/22 Dulaglutide [Trulicity] 0.75 mg SQ WEEKLY 04/10/22 04/10/22 Gabapentin [Neurontin] 300 mg PO TID 04/10/22 04/10/22 Lidocaine 5% Patch [Lidoderm] 1 patch TOPICAL DAILY PRN MDD p 04/10/22 04/10/22 Memantine HCl [Namenda] 5 mg PO BID 04/10/22 04/10/22 Multivit with Calcium,Iron,Min 1 each PO DAILY 04/10/22 04/10/22 [Women's Multivitamin] Neurvia -Brain Supplement 1 tab PO DAILY 04/10/22 Omeprazole 40 mg PO DAILY 04/10/22 04/10/22 metFORMIN HCL [Glucophage] 1,000 mg PO BID 04/10/22 04/10/22 Previous Rx's Medication Instructions Recorded Aspirin 81 mg PO DAILY tab 08/05/21 Ciprofloxacin-Dexameth [Ciprodex 4 drops RIGHT EAR BID 7 Days #7.5 06/12/24 Otic Susp] ml Ciprofloxacin-Dexameth [Ciprodex 4 drops RIGHT EAR BID 7 Days #7.5 06/12/24 Otic Susp] ml Allergies Allergy/AdvReac Type Severity Reaction Status Date / Time Penicillins Allergy Rash/Hives Verified 07/22/24 14:40 Sulfa (Sulfonamide Allergy Rash/Hives Verified 07/22/24 14:40 Antibiotics) Review of Systems ROS Statement: Those systems with pertinent positive or pertinent negative responses have been documented in the HPI. Review of Systems: CONST: Denies fever EYES: Denies blurry vision ENT: Denies nasal congestion C/V: Denies Chest pain RESP: Denies shortness of breath GI: Denies abdominal pain : Denies dysuria SKIN: Denies rash. MSK: Endorses back pain NEURO: Denies headache ROS Other: All systems not noted in ROS Statement are negative. Past Medical History Past Medical History: Chest Pain / Angina, CVA/TIA, Dementia, Diabetes Mellitus, Eye Disorder, GERD/Reflux, Hypertension, Osteoarthritis (OA), Sleep Apnea/CPAP/BIPAP, Thyroid Disorder Additional Past Medical History / Comment(s): glaucoma- Receives eye injections., blind left eye, states hx of silent TIA's, states pain in back, knees, legs & feet., oxygen at night- does not know how much oxygen., frequent constipation, eczema., pt states she is waiting for meds [facility] [place]- does not know what they are because she throws the bottles out when they are empty., will bring names of meds if she gets them., states liver disease. History of Any Multi-Drug Resistant Organisms: None Reported Past Surgical History: Back Surgery, Joint Replacement, Orthopedic Surgery Additional Past Surgical History / Comment(s): back surgery with metal/screws, eye sx for glaucoma, rt carpal tunnel, removal of benign cyst on ovary, right total knee replacement Past Anesthesia/Blood Transfusion Reactions: No Reported Reaction, Motion Sickness Past Psychological History: Anxiety, Depression Smoking Status: Former smoker Past Alcohol Use History: Rare Past Drug Use History: None Reported - Past Family History Mother Family Medical History: No Reported History General Exam - General Exam Comments Initial Comments: General: Appears in no acute distress. HEAD: Normal with no signs of head trauma. Negative Pollard sign. Negative raccoon eyes. EYES: PERRLA, EOMI, conjunctiva normal, no discharge. Pupils are 3 mm and equal bilaterally. ENT: Hearing grossly intact, normal oropharynx. RESPIRATORY: Clear breath sounds bilaterally. No wheezes, rales, or rhonchi. C/V: Regular rate and rhythm. S1 and S2 auscultated, no edema, peripheral pulses 2+ and intact throughout ABD: Abd is soft, nontender, nondistended EXT: Normal range of motion, no obvious deformity. Pelvis stable. Paraspinal muscle tenderness to palpation throughout the spine. No obvious step-offs or deformities of the mid spine. SKIN: No rashes or lesions observed on exposed skin. NEURO: Alert and oriented x 4. Cranial nerves II-XII intact. No focal sensory or strength deficits. GCS of 15. Limitations: physical limitation Course Vital Signs 07/22/24 07/22/24 14:40 20:09 Temperature 97.6 F 97.8 F Pulse Rate 62 82 Respiratory 18 18 Rate Blood Pressure 96/63 139/80 O2 Sat by Pulse 100 95 Oximetry Medical Decision Making - Medical Decision Making Was pt. sent in by a medical professional or institution (, PA, PNEUMATIC DRUM SANDER, urgent care, hospital, or penitentiary...) When possible be specific @ -No Did you speak to anyone other than the patient for history (EMS, parent, family, police, friend...)? What history was obtained from this source @ -Spoke with patient's daughter who helps with patient's past medical history. Did you review nursing and triage notes (agree or disagree)? Why? @ -I reviewed and agree with nursing and triage notes Were old charts reviewed (outside hosp., previous admission, EMS record, old EKG, old radiological studies, urgent care reports/EKG's, penitentiary records)? Report findings @ -No old charts were reviewed Differential Diagnosis (chest pain, altered mental status, abdominal pain women, abdominal pain men, vaginal bleeding, weakness, fever, dyspnea, syncope, headache, dizziness, GI bleed, back pain, seizure, CVA, palpatations, mental health, musculoskeletal)? @ -Differential Musculoskeletal Muscular strain, contusion, ligament sprain, fracture, arthritis, septic arthritis, bursitis, cellulitis, muscle spasm, nerve compression, DVT, arterial occlusion, herpes zoster, electrolyte abnormality, tumor.... This is not meant to be in all inclusive list EKG interpreted by me (3pts min.). @ -As above X-rays interpreted by me (1pt min.). @ -X-ray, pelvis x-ray negative for any obvious acute traumatic injury. CT interpreted by me (1pt min.). @ -CT brain, C-spine, T-spine, L-spine negative for any obvious acute traumatic injuries. Degenerative changes present. U/S interpreted by me (1pt. min.). @ -None done What testing was considered but not performed or refused? (CT, X-rays, U/S, labs)? Why? @ -None What meds were considered but not given or refused? Why? @ -None Did you discuss the management of the patient with other professionals (professionals i.e. , PA, PNEUMATIC DRUM SANDER, lab, RT, psych nurse, vp digital marketing social media and crm, operational risk manager, teacher, compliance review officer, bilingual case manager)? Give summary @ -No Was smoking cessation discussed for >3mins.? @ -No Was critical care preformed (if so, how long)? @ -No Were there social determinants of health that impacted care today? How? (Homelessness, low income, unemployed, alcoholism, drug addiction, transportation, low edu. Level, literacy, decrease access to med. care, prison, rehab)? @ -No Was there de-escalation of care discussed even if they declined (Discuss DNR or withdrawal of care, Hospice)? DNR status @ -No What co-morbidities impacted this encounter? (DM, HTN, Smoking, COPD, CAD, Cancer, CVA, ARF, Chemo, Hep., AIDS, mental health diagnosis, sleep apnea, morbid obesity)? @ -None Was patient admitted / discharged? Hospital course, mention meds given and route, prescriptions, significant lab abnormalities, going to OR and other pertinent info. @ -Based on the patient's presentation and physical exam, patient presents emergency department complaining of fall. Has a history of recent frequent falls. No head injury. Is not on blood thinners. Does not meet criteria for trauma or code coag. We will obtain imaging of the brain, spine as well as chest and pelvis x-ray. Labs will be obtained as well. Patient administered IV fluids as well as analgesia meds. She was in agreement this plan. Laboratory studies are unremarkable. This includes urinalysis that is within acceptable limits. Imaging is also negative for any obvious traumatic injury. EKG shows no signs of acute ischemia. I updated the patient. Long delay in obtaining urinalysis which was negative. She will be discharged home. She has a follow-up with her PCP on Saturday. Did discuss possible debility. We did discussed also option of admitting for possible placement however they that would like to pursue this outpatient if needed. I believe this is reasonable. Patient and patient's daughter are in agreement this plan. She will be discharged home at this time. I instructed the patient to follow up with their PCP in the next 1-3 days. I explained that the patient should return to the emergency department if they experience any worsening symptoms. Strict return precautions were discussed with the patient. The patient expressed understanding of these instructions. I answe red all questions that the patient had. The patient was discharged home in good condition with their prescriptions and follow up information. Undiagnosed new problem with uncertain prognosis? @ -No Drug Therapy requiring intensive monitoring for toxicity (Heparin, Nitro, Insulin, Cardizem)? @ -No Were any procedures done? @ -No Diagnosis/symptom? @ -Falls, chronic pain, dementia Acute, or Chronic, or Acute on Chronic? @ -Acute on chronic Uncomplicated (without systemic symptoms) or Complicated (systemic symptoms)? @ -Uncomplicated Side effects of treatment? @ -No Exacerbation, Progression, or Severe Exacerbation? @ -No Poses a threat to life or bodily function? How? (Chest pain, [place], [place], pneumonia, PE, COPD, DKA, ARF, appy, cholecystitis, CVA, Diverticulitis, Homicidal, Suicidal, th time reat to staff... and all critical care pts) @ -Unlikely at this - Lab Data Result diagrams: 07/22/24 16:21 07/22/24 16:21 Lab Results 07/22/24 07/22/24 07/22/24 Range/Units 16:21 16:21 16:21 WBC 5.9 (3.8-10.6) k/uL RBC 3.78 L (3.80-5.40) m/uL Hgb 11.2 L (11.4-16.0) gm/dL Hct 35.1 (34.0-46.0) % MCV 92.9 (80.0-100.0) fL MCH 29.6 (25.0-35.0) pg MCHC 31.9 (31.0-37.0) g/dL RDW 14.1 (11.5-15.5) % Plt Count 250 (150-450) k/uL MPV 7.7 Neutrophils % 57 % Lymphocytes % 27 % Monocytes % 7 % Eosinophils % 6 % Basophils % 0 % Neutrophils # 3.4 (1.3-7.7) k/uL Lymphocytes # 1.6 (1.0-4.8) k/uL Monocytes # 0.4 (0-1.0) k/uL Eosinophils # 0.4 (0-0.7) k/uL Basophils # 0.0 (0-0.2) k/uL PT 10.2 (10.0-12.5) sec INR 0.9 (<1.2) APTT 24.5 (22.0-30.0) sec Sodium 139 (137-145) mmol/L Potassium 4.2 (3.5-5.1) mmol/L Chloride 104 (98-107) mmol/L Carbon Dioxide 26 (22-30) mmol/L Anion Gap 9 mmol/L BUN 42 H (7-17) mg/dL Creatinine 1.58 H (0.52-1.04) mg/dL Est GFR (CKD-EPI)AfAm 34 (>60 ml/min/1.73 sqM) Est GFR (CKD-EPI)NonAf 30 (>60 ml/min/1.73 sqM) Glucose 79 (74-99) mg/dL Calcium 10.1 (8.4-10.2) mg/dL Total Bilirubin 0.5 (0.2-1.3) mg/dL AST 26 (14-36) U/L ALT 16 (4-34) U/L Alkaline Phosphatase 122 (38-126) U/L Total Protein 6.9 (6.3-8.2) g/dL Albumin 4.3 (3.5-5.0) g/dL Urine Color Urine Appearance (Clear) Urine pH (5.0-8.0) Ur Specific [place] (1.001-1.035) Urine Protein (Negative) Urine Glucose (UA) (Negative) Urine Ketones (Negative) Urine Blood (Negative) Urine Nitrite (Negative) Urine Bilirubin (Negative) Urine Urobilinogen (<2.0) mg/dL Ur Leukocyte Esterase (Negative) 07/22/24 Range/Units 18:57 WBC (3.8-10.6) k/uL RBC (3.80-5.40) m/uL Hgb (11.4-16.0) gm/dL Hct (34.0-46.0) % MCV (80.0-100.0) fL MCH (25.0-35.0) pg MCHC (31.0-37.0) g/dL RDW (11.5-15.5) % Plt Count (150-450) k/uL MPV Neutrophils % % Lymphocytes % % Monocytes % % Eosinophils % % Basophils % % Neutrophils # (1.3-7.7) k/uL Lymphocytes # (1.0-4.8) k/uL Monocytes # (0-1.0) k/uL Eosinophils # (0-0.7) k/uL Basophils # (0-0.2) k/uL PT (10.0-12.5) sec INR (<1.2) APTT (22.0-30.0) sec Sodium (137-145) mmol/L Potassium (3.5-5.1) mmol/L Chloride (98-107) mmol/L Carbon Dioxide (22-30) mmol/L Anion Gap mmol/L BUN (7-17) mg/dL Creatinine (0.52-1.04) mg/dL Est GFR (CKD-EPI)AfAm (>60 ml/min/1.73 sqM) Est GFR (CKD-EPI)NonAf (>60 ml/min/1.73 sqM) Glucose (74-99) mg/dL Calcium (8.4-10.2) mg/dL Total Bilirubin (0.2-1.3) mg/dL AST (14-36) U/L ALT (4-34) U/L Alkaline Phosphatase (38-126) U/L Total Protein (6.3-8.2) g/dL Albumin (3.5-5.0) g/dL Urine Color Colorless Urine Appearance Clear (Clear) Urine pH 5.0 (5.0-8.0) Ur Specific [place] 1.008 (1.001-1.035) Urine Protein Negative (Negative) Urine Glucose (UA) Negative (Negative) Urine Ketones Negative (Negative) Urine Blood Negative (Negative) Urine Nitrite Negative (Negative) Urine Bilirubin Negative (Negative) Urine Urobilinogen <2.0 (<2.0) mg/dL Ur Leukocyte Esterase Negative (Negative) - EKG Data -: EKG Interpreted by Me EKG Comments: 12-lead Electrocardiogram Interpretation Note EKG was reviewed and interpreted by myself. 12-lead ECG performed at 1738 is interpreted by me as revealing normal sinus rhythm at a rate of 66 beats per minute. [place] is normal. MS interval is 162 ms, QRS duration is 98 ms, QTc is 380 ms.. There were no ST or T wave abnormalities to suggest myocardial ischemia or injury. R wave progression across the precordium was satisfactory. By my interpretation this EKG is non-diagnostic for acute ischemia. Disposition Clinical Impression: Fall, Chronic pain, Dementia Disposition: HOME SELF-CARE Condition: Good Instructions (If sedation given, give patient instructions): Fall Prevention fo r Older Adults (ED) Additional Instructions: Follow-up with your PCP on Saturday at your appointment. Return if any worsening symptoms. Is patient prescribed a controlled substance at d/c from ED?: No Referrals: Arsalan Garcia MD [Primary Care Provider] - 1-2 days Time of Disposition: 19:35
[2024-07-22 20:18] VITALS: BP 139/80; PULSE 82; TEMP 97.8
== END 2024-07-22 20:17 | disposition home or self-care (01) ==
LOC: EC 14:25
DX: G89.29 Other chronic pain (principal); M54.9 Dorsalgia, unspecified; F03.90 Unspecified dementia, unspecified severity, without behavioral disturbance, psychotic disturbance, mood disturbance, and anxiety; E11.9 Type 2 diabetes mellitus without complications; I10 Essential (primary) hypertension; Z87.891 Personal history of nicotine dependence; Z88.0 Allergy status to penicillin; Z88.2 Allergy status to sulfonamides; W19.XXXA Unspecified fall, initial encounter
CPT/HCPCS: 36415; 70450; 71045; 72125; 72128; 72131; 72170; 80053; 81003; 85025; 85610; 85730; 93005; 96360; 99285

== ENCOUNTER 2024-07-30 09:10 | Observation (INO) | payer MEDICARE, OTHER ==
--- NOTE | 2024-07-30 09:44 | ED ---
Fall HPI - General Chief Complaint: Fall Stated Complaint: fall Time Seen by Provider: 07/30/24 09:43 Source: patient, EMS, RN notes reviewed, old records reviewed Mode of arrival: EMS Limitations: physical limitation - History of Present Illness Initial Comments: 83-year-old female presented to the ER via EMS for evaluation of a fall. Patient reports she was making herself breakfast and gathering her morning medications to sit down at the table. She is unsure if she tripped and fell. She does report she hit the back of her head on the ground. She denies loss of consciousness or blood thinner use. Patient is reporting generalized pain but states this is chronic in nature. Patient reports she has been feeling weak for "a while". She also reports bilateral lower extremities have been swollen for which she has been elevating them. Patient typically wears oxygen at home and is unsure of the amount. Patient takes diuretic. She denies any fevers, chills, cough, congestion, chest pain, shortness of breath, abdominal pain, recent diarrhea/constipation, nausea, vomiting, urinary complaints. Patient reports he typically ambulates with a walker and lives home alone. D[place]. Upon speaking with daughter, she states for the past week or 2 patient has been having "tremors". She does admit patient was recently started on Rexulti and Seroquel. - Related Data Home Medications Medication Instructions Recorded Confirmed PARoxetine HCL 40 mg PO HS 04/04/18 07/30/24 traMADol HCL 50 mg PO QID 09/14/20 07/30/24 Furosemide [Lasix] 20 mg PO DAILY 08/04/21 07/30/24 Atorvastatin [Lipitor] 20 mg PO HS 04/10/22 07/30/24 Memantine HCl [Namenda] 5 mg PO BID 04/10/22 07/30/24 Omeprazole 40 mg PO DAILY 04/10/22 07/30/24 metFORMIN HCL [Glucophage] 1,000 mg PO BID-W/MEALS 04/10/22 07/30/24 Brexpiprazole [Rexulti] 1 mg PO HS 07/30/24 07/30/24 Donepezil [Aricept] 10 mg PO HS 07/30/24 07/30/24 Formoterol Fumarate [Perforomist] 20 mcg INHALATION RT-DAILY 07/30/24 07/30/24 Levothyroxine Sodium [Synthroid] 100 mcg PO DAILY 07/30/24 07/30/24 Losartan/Hydrochlorothiazide 1 tab PO DAILY 07/30/24 07/30/24 [Hyzaar 100-25 Tablet] Montelukast [Singulair] 10 mg PO HS 07/30/24 07/30/24 Ondansetron [Zofran] 4 mg PO DAILY 07/30/24 07/30/24 QUEtiapine [SEROquel] 25 mg PO HS 07/30/24 07/30/24 Allergies Allergy/AdvReac Type Severity Reaction Status Date / Time Penicillins Allergy Rash/Hives Verified 07/30/24 10:25 Sulfa (Sulfonamide Allergy Rash/Hives Verified 07/30/24 10:25 Antibiotics) Review of Systems ROS Statement: Those systems with pertinent positive or pertinent negative responses have been documented in the HPI. ROS Other: All systems not noted in ROS Statement are negative. Past Medical History Past Medical History: Chest Pain / Angina, CVA/TIA, Dementia, Diabetes Mellitus, Eye Disorder, GERD/Reflux, Hypertension, Osteoarthritis (OA), Sleep Apnea/CPAP/BIPAP, Thyroid Disorder Additional Past Medical History / Comment(s): glaucoma- Receives eye i njections., blind left eye, states hx of silent TIA's, states pain in back, knees, legs & feet., oxygen at night- does not know how much oxygen., frequent constipation, eczema., pt states she is waiting for meds from [facility] in [place]- does not know what they are because she throws the bottles out when they are empty., will bring names of meds if she gets them., states liver disease. History of Any Multi-Drug Resistant Organisms: None Reported Past Surgical History: Back Surgery, Joint Replacement, Orthopedic Surgery Additional Past Surgical History / Comment(s): back surgery with metal/screws, eye sx for glaucoma, rt carpal tunnel, removal of benign cyst on ovary, right total knee replacement Past Anesthesia/Blood Transfusion Reactions: No Reported Reaction, Motion Sickness Past Psychological History: Anxiety, Depression Smoking Status: Former smoker Past Alcohol Use History: Rare Past Drug Use History: None Reported - Past Family History Mother Family Medical History: No Reported History General Exam Limitations: no limitations General appearance: alert, in no apparent distress Head exam: Present: atraumatic, normocephalic, normal inspection Eye exam: Present: normal appearance, PERRL, EOMI. Absent: scleral icterus, conjunctival injection, periorbital swelling Pupils: Present: normal accommodation ENT exam: Present: normal exam, normal oropharynx, mucous membranes moist Neck exam: Present: normal inspection. Absent: tenderness, meningismus, lymphadenopathy Respiratory exam: Present: normal lung sounds bilaterally. Absent: respiratory distress, wheezes, rales, rhonchi, stridor Cardiovascular Exam: Present: regular rate, normal rhythm, normal heart sounds. Absent: systolic murmur, diastolic murmur, rubs, gallop, clicks GI/Abdominal exam: Present: soft, normal bowel sounds. Absent: distended, tenderness, guarding, rebound, rigid Extremities exam: Present: normal inspection, full ROM, normal capillary refill, other (2+ DP and radial pulses bilaterally). Absent: tenderness, pedal edema, joint swelling, calf tenderness Back exam: Present: normal inspection Neurological exam: Present: alert, oriented X3, CN II-XII intact Skin exam: Present: warm, dry, intact, normal color. Absent: rash Course Vital Signs 07/30/24 07/30/24 07/30/24 09:13 09:48 09:50 Temperature 97.8 F Pulse Rate 67 67 66 Respiratory 22 14 13 Rate Blood Pressure 131/55 138/56 138/56 O2 Sat by Pulse 98 100 100 Oximetry 07/30/24 07/30/24 07/30/24 10:00 10:10 10:20 Temperature Pulse Rate 67 Respiratory 12 Rate Blood Pressure 138/56 138/56 130/63 O2 Sat by Pulse Oximetry 07/30/24 07/30/24 07/30/24 10:24 10:30 10:40 Temperature Pulse Rate 67 63 66 Respiratory 15 16 15 Rate Blood Pressure 130/63 130/63 122/45 O2 Sat by Pulse 100 100 100 Oximetry 07/30/24 07/30/24 07/30/24 10:50 11:20 12:00 Temperature Pulse Rate 64 64 66 Respiratory 14 15 21 Rate Blood Pressure 131/65 116/57 134/67 O2 Sat by Pulse 100 99 85 L Oximetry 07/30/24 07/30/24 12:50 13:41 Temperature Pulse Rate 63 73 Respiratory 19 19 Rate Blood Pressure 145/81 153/72 O2 Sat by Pulse 97 98 Oximetry - Reevaluation(s) Reevaluation #1: 07/30/24 13:[address] Garcia for admission. Medical Decision Making - Medical Decision Making Was pt. sent in by a medical professional or institution ([facility], [facility], urgent care, hospital, or [facility]...) When possible be specific @ -No Did you speak to anyone other than the patient for history (EMS, parent, family, police, friend...)? What history was obtained from this source @ -Patient's daughter aiding in HPI and past medical history. Did you review nursing and triage notes (agree or disagree)? Why? @ -I reviewed and agree with nursing and triage notes Were old charts reviewed (outside hosp., previous admission, EMS record, old EKG, old radiological studies, urgent care reports/EKG's, [facility] records)? Report findings @ -Yes, I reviewed ER visit from 07-22-2024 patient seen here for fall and discharged home. Differential Diagnosis (chest pain, altered mental status, abdominal pain women, abdominal pain men, vaginal bleeding, weakness, fever, dyspnea, syncope, headache, dizziness, GI bleed, back pain, seizure, CVA, palpatations, mental health, musculoskeletal)? @ -Differential Weakness: Hypoglycemia, shock, sepsis, hyponatremia, anemia, infection, [place], ETOH, adverse medicine reaction, overdose, stroke, this is not meant to be an all-inclusive list. EKG interpreted by me (3pts min.). @ -As above X-rays interpreted by me (1pt min.). @ -CXR interpreted by me negative for acute cardiopulmonary process. CT interpreted by me (1pt min.). @ -CT brain C-spine negative for acute intracranial process or cervical spine f ractures or dislocations. U/S interpreted by me (1pt. min.). @ -None done What testing was considered but not performed or refused? (CT, X-rays, U/S, labs)? Why? @ -None What meds were considered but not given or refused? Why? @ -None Did you discuss the management of the patient with other professionals (professionals i.e. , [facility], [facility], lab, RT, psych nurse, social work associate, sleeping room cleaner, teacher, navigating officer, director of casework services)? Give summary @ -Yes, case discussed with Dr. Garcia for admission. Was smoking cessation discussed for >3mins.? @ -No Was critical care preformed (if so, how long)? @ -No Were there social determinants of health that impacted care today? How? (Homelessness, low income, unemployed, alcoholism, drug addiction, transportation, low edu. Level, literacy, decrease access to med. care, group home, rehab)? @ -No Was there de-escalation of care discussed even if they declined (Discuss DNR or withdrawal of care, Hospice)? DNR status @ -No What co-morbidities impacted this encounter? (DM, HTN, Smoking, COPD, CAD, Cancer, CVA, ARF, Chemo, Hep., AIDS, mental health diagnosis, sleep apnea, morbid obesity)? @ -Diabetes mellitus, thyroid disorder, dementia, previous TIA, hypertension Was patient admitted / discharged? Hospital course, mention meds given and route, prescriptions, significant lab abnormalities, going to OR and other pertinent info. @ -Admitted. 83-year-old female presented to the ER for evaluation of fall. Patient has been seen here numerous times for multiple falls. She reports she feels weak. History and physical exam completed. Vitals stable. Patient in no signs of acute distress nontoxic-appearing. Patient AxO x 3. Patient is neurovascularly intact. No acute neurological findings on exam. Laboratory studies obtained showing an KARLEE with a creatinine of 2.37, BUN of 40 with a GFR of 18. Troponin undetectable. BNP 597, TSH 1.34. Viral swabs negative. Chest x-ray negative. CT brain/C-spine negative for acute intracranial process. UA pending at time of admission. Given KARLEE and multiple recent falls admission was considered and discussed with Dr. Garcia for IV hydration and possible rehab placement. Patient started on maintenance fluids at 75 cc/h given lower extremity edema. Patient complaining of generalized pain in the ER for which she was given tramadol and Dilaudid. Patient is agreeable for admission. Patient admitted in stable condition. Case discussed with the attending by Dr. Fernando. Undiagnosed new problem with uncertain prognosis? @ -No Drug Therapy requiring intensive monitoring for toxicity (Heparin, Nitro, Insulin, Cardizem)? @ -No Were any procedures done? @ -No Diagnosis/symptom? @ -KARLEE/multiple falls Acute, or Chronic, or Acute on Chronic? @ -Acute Uncomplicated (without systemic symptoms) or Complicated (systemic symptoms)? @ -Complicated Side effects of treatment? @ -No Exacerbation, Progression, or Severe Exacerbation? @ -No Poses a threat to life or bodily function? How? (Chest pain, [place], [place], pneumonia, PE, COPD, DKA, ARF, appy, cholecystitis, CVA, Diverticulitis, Homicidal, Suicidal, threat to staff... and all critical care pts) @ -Yes, falls can lead to life-threatening injuries. - Lab Data Result diagrams: 07/30/24 09:58 07/30/24 09:58 Lab Results 07/30/24 07/30/24 07/30/24 Range/Units 09:58 09:58 09:58 WBC 7.6 (3.8-10.6) k/uL RBC 3.66 L (3.80-5.40) m/uL Hgb 11.1 L (11.4-16.0) gm/dL Hct 34.0 (34.0-46.0) % MCV 93.1 (80.0-100.0) fL MCH 30.3 (25.0-35.0) pg MCHC 32.5 (31.0-37.0) g/dL RDW 14.7 (11.5-15.5) % Plt Count 239 (150-450) k/uL MPV 7.9 Neutrophils % 68 % Lymphocytes % 20 % Monocytes % 7 % Eosinophils % 2 % Basophils % 0 % Neutrophils # 5.2 (1.3-7.7) k/uL Lymphocytes # 1.5 (1.0-4.8) k/uL Monocytes # 0.5 (0-1.0) k/uL Eosinophils # 0.2 (0-0.7) k/uL Basophils # 0.0 (0-0.2) k/uL PT 10.3 (10.0-12.5) sec INR 0.9 (<1.2) APTT 22.1 (22.0-30.0) sec Sodium 133 L (137-145) mmol/L Potassium 4.4 (3.5-5.1) mmol/L Chloride 102 (98-107) mmol/L Carbon Dioxide 27 (22-30) mmol/L Anion Gap 4 mmol/L BUN 40 H (7-17) mg/dL Creatinine 2.37 H (0.52-1.04) mg/dL Est GFR (CKD-EPI)AfAm 21 (>60 ml/min/1.73 sqM) Est GFR (CKD-EPI)NonAf 18 (>60 ml/min/1.73 sqM) Glucose 81 (74-99) mg/dL Calcium 9.4 (8.4-10.2) mg/dL Magnesium 1.9 (1.6-2.3) mg/dL Total Bilirubin 0.6 (0.2-1.3) mg/dL AST 39 H (14-36) U/L ALT 21 (4-34) U/L Alkaline Phosphatase 94 (38-126) U/L Troponin I (0.000-0.034) ng/mL NT-Pro-B Natriuret Pep 597 pg/mL Total Protein 6.7 (6.3-8.2) g/dL Albumin 4.1 (3.5-5.0) g/dL TSH 1.340 (0.465-4.680) mIU/L Influenza Type A (PCR) (Not Detectd) Influenza Type B (PCR) (Not Detectd) RSV (PCR) (Not Detectd) SARS-CoV-2 (PCR) (Not Detectd) 07/30/24 07/30/24 Range/Units 09:58 09:58 WBC (3.8-10.6) k/uL RBC (3.80-5.40) m/uL Hgb (11.4-16.0) gm/dL Hct (34.0-46.0) % MCV (80.0-100.0) fL MCH (25.0-35.0) pg MCHC (31.0-37.0) g/dL RDW (11.5-15.5) % Plt Count (150-450) k/uL MPV Neutrophils % % Lymphocytes % % Monocytes % % Eosinophils % % Basophils % % Neutrophils # (1.3-7.7) k/uL Lymphocytes # (1.0-4.8) k/uL Monocytes # (0-1.0) k/uL Eosinophils # (0-0.7) k/uL Basophils # (0-0.2) k/uL PT (10.0-12.5) sec INR (<1.2) APTT (22.0-30.0) sec Sodium (137-145) mmol/L Potassium (3.5-5.1) mmol/L Chloride (98-107) mmol/L Carbon Dioxide (22-30) mmol/L Anion Gap mmol/L BUN (7-17) mg/dL Creatinine (0.52-1.04) mg/dL Est GFR (CKD-EPI)AfAm (>60 ml/min/1.73 sqM) Est GFR (CKD-EPI)NonAf (>60 ml/min/1.73 sqM) Glucose (74-99) mg/dL Calcium (8.4-10.2) mg/dL Magnesium (1.6-2.3) mg/dL Total Bilirubin (0.2-1.3) mg/dL AST (14-36) U/L ALT (4-34) U/L Alkaline Phosphatase (38-126) U/L Troponin I 0.013 (0.000-0.034) ng/mL NT-Pro-B Natriuret Pep pg/mL Total Protein (6.3-8.2) g/dL Albumin (3.5-5.0) g/dL TSH (0.465-4.680) mIU/L Influenza Type A (PCR) Not Detected (Not Detectd) Influenza Type B (PCR) Not Detected (Not Detectd) RSV (PCR) Not Detected (Not Detectd) SARS-CoV-2 (PCR) Not Detected (Not Detectd) - EKG Data -: EKG Interpreted by Me EKG Comments: EKG taken at 9: 19 showing a sinus rhythm. No ST segment or T wave abnormalities. Ventricular rate 66, NH interval 158, QRS ration 102, QT/QTc 442/456 - Radiology Data Radiology results: report reviewed, image reviewed Disposition Clinical Impression: KARLEE (acute kidney injury), Multiple falls Disposition: ADMITTED IP TO THIS [facility] Condition: Stable Time of Disposition: 13:12
[2024-07-30 10:13] LABS: Basophils % (A) 0 %; Eosinophils # (A) 0.2 k/uL (0-0.7); Eosinophils % (A) 2 %; HGB 11.1 gm/dL (11.4-16.0); Lymphocytes # (A) 1.5 k/uL (1.0-4.8); Lymphocytes % (A) 20 %; MCH 30.3 pg (25.0-35.0); MCHC 32.5 g/dL (31.0-37.0); MCV 93.1 fL (80.0-100.0); Mean Platelet Volume 7.9; Monocytes # (A) 0.5 k/uL (0-1.0); Monocytes % (A) 7 %; Neutrophils # (A) 5.2 k/uL (1.3-7.7); Neutrophils % (A) 68 %; Platelet Count 239 k/uL (150-450); RBC 3.66 m/uL (3.80-5.40); RDW 14.7 % (11.5-15.5); WBC 7.6 k/uL (3.8-10.6)
--- NOTE | 2024-07-30 10:31 | CT ---
EXAMINATION TYPE: CT brain lamineine wo con DATE OF EXAM: 07/30/2024 COMPARISON: 07/22/2024 CLINICAL INDICATION: Female, 83 years old with history of fall with head injury no thinners; PHH, fal l with head injury no thinners TECHNIQUE: CT scan of the head and cervical spine are performed without contrast. CT DLP: 1204.[address] CTDI: mGy Automated exposure control for dose reduction was used. Findings: Head CT: The ventricles, basal cisterns and sulci over convexities are moderately enlarged consistent with mod erate atrophy. There is mild decreased density in the periventricular white matter consistent with ch ronic ischemic white matter demyelination. There is no intra or extra-axial hemorrhage. Posterior fossa including the brainstem, fourth ventricle and cerebellar pontine angles are grossly n ormal. The intraorbital contents appear normal and symmetric. Visualized paranasal sinuses are well aerated. The calvarium is intact. CT cervical spine: Craniovertebral junction relationships and prevertebral soft tissues are normal. The cervical vertebral segments are normal in height and alignment and there is no fracture subluxati on. There is marked disc space narrowing and spondylosis indicating marked degenerative disc disease from C2 through T3. There is advanced osteoarthritis of the uncovertebral joints throughout the cervical spine. The bony cervical canal is widely patent. There is mild bony neural foraminal encroachment at C4-5 and C5-6 on the right. The paraspinal soft t issues unremarkable. IMPRESSION: 1. Head CT: No acute bleed or mass effect. 2. CT cervical spine: No acute trauma. Advanced degenerative disc disease and osteoarthritis througho ut the cervical spine. [facility], Workstation: [email or web address] 07/30/2024 10:28 AM
[2024-07-30 10:32] LABS: INR 0.9 (<1.2); Partial Thromboplastin Time 22.1 sec (22.0-30.0); Prothrombin Time 10.3 sec (10.0-12.5)
[2024-07-30] MEDS: traMADol 50 MG TAB PO STA (10:42)
[2024-07-30 10:43] LABS: ALT 21 U/L (4-34); African American GFR (CKD) 21 (>60 ml/min/1.73 sqM); Albumin 4.1 g/dL (3.5-5.0); Anion Gap 4 mmol/L; Blood Urea Nitrogen 40 mg/dL (7-17); Calcium 9.4 mg/dL (8.4-10.2); Carbon Dioxide 27 mmol/L (22-30); Chloride 102 mmol/L (98-107); Glucose 81 mg/dL (74-99); Non-African American GFR(CKD) 18 (>60 ml/min/1.73 sqM); Sodium 133 mmol/L (137-145); Total Bilirubin 0.6 mg/dL (0.2-1.3); Total Protein 6.7 g/dL (6.3-8.2)
[2024-07-30 10:51] LABS: NT-Pro-B-Type Natriuretic Pept 597 pg/mL
[2024-07-30 11:13] LABS: AST 39 U/L (14-36); Magnesium 1.9 mg/dL (1.6-2.3); Potassium 4.4 mmol/L (3.5-5.1)
[2024-07-30 11:14] LABS: Alkaline Phosphatase 94 U/L (38-126)
--- NOTE | 2024-07-30 12:15 | XR ---
EXAMINATION TYPE: XR chest 2V DATE OF EXAM: 07/30/2024 11:08 AM COMPARISON: Chest radiographs from 07/22/2024 CLINICAL INDICATION: Female, 83 years old with history of Weakness; TECHNIQUE: XR chest 2V Frontal and lateral views of the chest. FINDINGS: Lungs/Pleura: There is no evidence of pleural effusion, focal consolidation, or pneumothorax. Pulmonary vascularity: Unremarkable. Heart/mediastinum: Cardiomediastinal silhouette is enlarged and stable. Musculoskeletal: No acute osseous pathology. There is lower spine fixation hardware is present. IMPRESSION: No acute cardiopulmonary disease/process. [facility], , 07/30/2024 12:13 PM
[2024-07-30] MEDS: HYDROmorphone 0.5 MG/0.5 ML SYRINGE IVP STA (12:52)
[2024-07-30] MEDS ORDERED: NALOXONE 0.4 MG/ML 1 ML VIAL IV PRN (13:09)
[2024-07-30] MEDS ORDERED: ONDANSETRON 4 MG/2 ML VIAL IVP PRN (13:09)
[2024-07-30] MEDS ORDERED: HYDROmorphone 0.5 MG/0.5 ML SYRINGE IVP PRN (13:09)
[2024-07-30] MEDS: SODIUM CHLORIDE 0.9% 1,000 ML IV SCH ×2 (13:39→20:33)
[2024-07-30] MEDS: LEVOTHYROXINE 100 MCG TAB PO SCH (13:40)
[2024-07-30 16:47] LABS: Appearance,Urine Clear (Clear); Bacteria,Urine Rare /hpf; Bilirubin,Urine Negative (Negative); Blood,Urine Negative (Negative); Color,Urine Colorless; Glucose,Urine (UA) Negative (Negative); Ketones,Urine Negative (Negative); Leukocyte Esterase,Urine Small (Negative); Mucus,Urine Rare /hpf; Nitrite,Urine Negative (Negative); Protein,Urine Negative (Negative); RBC,Urine 1 /hpf (0-5); Specific Gravity,Urine 1.008 (1.001-1.035); Squamous Epithelial Cell,Urine 1 /hpf (0-4); Urobilinogen,Urine <2.0 mg/dL (<2.0); WBC,Urine 4 /hpf (0-5)
[2024-07-30] MEDS: IPRATROPIUM-ALBUTEROL 3 ML NEB INHALATION SCH (19:32)
[2024-07-30] MEDS: PARoxetine 20 MG TAB PO SCH (21:48)
[2024-07-30] MEDS: traMADol 50 MG TAB PO SCH (21:49)
[2024-07-30] MEDS: ATORVASTATIN 20 MG TAB PO SCH (21:49)
[2024-07-30] MEDS: QUEtiapine 25 MG TAB PO SCH (21:49)
[2024-07-30] MEDS: MAGNESIUM OXIDE 400 MG TAB PO SCH (21:49)
[2024-07-30] MEDS: MONTELUKAST 10 MG TAB PO SCH (21:50)
[2024-07-31] MEDS: PANTOPRAZOLE 40 MG TABLET PO SCH (09:53)
[2024-07-31 13:34] VITALS: BMI 28.3
[2024-07-31 15:16] LABS: Basophils % (A) 0 %; Eosinophils # (A) 0.2 k/uL (0-0.7); Eosinophils % (A) 4 %; HCT 32.1 % (34.0-46.0); HGB 10.5 gm/dL (11.4-16.0); Lymphocytes % (A) 19 %; MCHC 32.8 g/dL (31.0-37.0); MCV 94.5 fL (80.0-100.0); Mean Platelet Volume 7.4; Monocytes # (A) 0.4 k/uL (0-1.0); Monocytes % (A) 7 %; Neutrophils # (A) 3.4 k/uL (1.3-7.7); Neutrophils % (A) 67 %; Platelet Count 234 k/uL (150-450); RDW 14.8 % (11.5-15.5); WBC 5.1 k/uL (3.8-10.6)
[2024-07-31 15:36] LABS: ALT 19 U/L (4-34); African American GFR (CKD) 66 (>60 ml/min/1.73 sqM); Albumin 3.5 g/dL (3.5-5.0); Albumin/Globulin Ratio 1.5; Anion Gap 3 mmol/L; Blood Urea Nitrogen 23 mg/dL (7-17); Calcium 8.9 mg/dL (8.4-10.2); Carbon Dioxide 28 mmol/L (22-30); Chloride 104 mmol/L (98-107); Globulin 2.4 g/dL; Glucose 172 mg/dL (74-99); Non-African American GFR(CKD) 57 (>60 ml/min/1.73 sqM); Sodium 135 mmol/L (137-145); Total Bilirubin 0.5 mg/dL (0.2-1.3); Total Protein 5.9 g/dL (6.3-8.2)
[2024-07-31 15:42] LABS: AST 37 U/L (14-36); Alkaline Phosphatase 86 U/L (38-126); Potassium 4.3 mmol/L (3.5-5.1)
--- NOTE | 2024-08-01 02:28 | PN ---
PROGRESS NOTE OBJECTIVE: VITAL SIGNS: Temperature 98.1, blood pressure 120/74, O2 98% on 3 L, pulse . CARDIOVASCULAR: S1, S2. LUNGS: Scattered wheezing, rhonchi. HEMATOLOGY: Negative Homans. PSYCH: Fair mood and affect. NEUROLOGIC: Alert and oriented x3. PLAN: The patient is stabilized, waiting for today's electrolytes. After she had been rehydrated, her medications were adjusted, diuresis; Lasix was discontinued; Cozaar. Metformin discontinued due to severe renal failure stage 4, which is acute on chronic renal failure. Continue current treatment. Rehydrate. Prognosis guarded. Possible discharge home with labs are better tomorrow. MMODL / IJN: [id number] /
--- NOTE | 2024-08-01 02:52 | HP ---
HISTORY AND PHYSICAL HISTORY OF PRESENT ILLNESS: An 83-year-old female came in after a fall. She was making herself breakfast, getting sit down on table, tripped and fell. She hit her head on the ground. She denies weakness and extreme fatigue. She was found to have acute on chronic renal failure, which medications were adjusted and IV fluids have been given overnight for dehydration. HOME MEDICATIONS: Include: 1. Paroxetine 40 daily. 2. Tramadol 50 q.i.d. 3. Lasix 20 daily. 4. Lipitor 20 daily. 5. Namenda 5 mg daily. 6. Omeprazole 40 daily. 7. Metformin 1000 b.i.d. 8. 1 mg daily. 9. Aricept 10 daily. 10.Seroquel 25 at night. 11.Singulair 10 daily. 12.Losartan/hydrochlorothiazide daily 100/12.5. 13.Perforomist b.i.d. ALLERGIES: Penicillin, sulfa. REVIEW OF SYSTEMS: 14-point review of systems positive for chest pain, angina, CVA, TIA, dementia, diabetes mellitus, eye disorder, GERD, hypertension, osteoarthritis, sleep apnea, hypothyroidism. PAST SURGICAL HISTORY: Back surgery, joint replacement, orthopedic surgery. SOCIAL HISTORY: Former smoker. PHYSICAL EXAMINATION: VITAL SIGNS: Temperature 97.8, blood pressure 130s/50s, pulse 60s, respiratory rate 16 to 18. HEENT: Normocephalic, atraumatic. CARDIOVASCULAR: S1, S2. EXTREMITIES: No cyanosis, clubbing, or edema. NEUROLOGIC: Cranial nerves intact. PSYCH: Fair mood and affect. LUNGS: Scattered wheeze. LABORATORY DATA: White count 7.5, hemoglobin 11.1. Sodium 133, potassium 4.4, BUN is 40, creatinine 2.37. EKG shows sinus rhythm. ASSESSMENT: Acute kidney injury, multiple falls, acute on chronic renal insufficiency, fall secondary to dehydration. Check orthostatic hypotension. Possibly discharge home once stabilized in next 24 to 48 hours. MMODL / IJN: [id number] /
[2024-08-01 12:49] LABS: Basophils # (A) 0.01 X 10*3/uL (0.00-0.10); Basophils % (A) 0.2 %; Eosinophils # (A) 0.24 X 10*3/uL (0.04-0.35); Eosinophils % (A) 5.2 %; HCT 31.7 % (37.2-46.3); Lymphocytes # (A) 1.08 X 10*3/uL (0.90-5.00); Lymphocytes % (A) 23.2 %; MCH 29.6 pg (27.0-32.0); MCHC 31.5 g/dL (32.0-37.0); MCV 93.8 FL (80.0-97.0); Mean Platelet Volume 10.4 FL (9.5-12.2); Monocytes # (A) 0.39 X 10*3/uL (0.20-1.00); Monocytes % (A) 8.4 %; NRBC Per 100 WBC 0 X 10*3/uL (0.00-0.01); Neutrophils % (A) 62.4 %; Platelet Count 210 X 10*3/uL (140-440); RBC 3.38 X 10*6/uL (4.10-5.20); RDW 15.3 % (11.5-14.5); WBC 4.65 X 10*3/uL (4.50-10.00)
[2024-08-01 13:00] LABS: BUN/Creat Ratio 14.75 Ratio (12.00-20.00); Blood Urea Nitrogen 11.8 mg/dL (9.0-27.0); Glucose 245 mg/dL (70-110)
[2024-08-01 13:01] LABS: ALT 17 U/L (8-44); AST 24 U/L (13-35); Albumin 3.5 g/dL (3.8-4.9); Albumin/Globulin Ratio 1.67 Ratio (1.60-3.17); Alkaline Phosphatase 88 U/L (41-126); Calcium 8.5 mg/dL (8.7-10.3); Chloride 105 mmol/L (96-109); Globulin 2.1 g/dL (1.6-3.3); Potassium 3.5 mmol/L (3.5-5.5); Sodium 142 mmol/L (135-145); Total Bilirubin <0.2 mg/dL (0.3-1.2); Total Protein 5.6 g/dL (6.2-8.2)
--- NOTE | 2024-08-02 00:49 | PN ---
PROGRESS NOTE MEDICATIONS: renal failure. Her kidney function is greatly improved overnight as dehydration is improved. Her mental status is much better. OBJECTIVE: VITAL SIGNS: Blood pressure is 120s to 140s, orthostatic hypotension is negative, O2 saturation 96% to 98%, pulse 80s to 70s, temperature 98 . CARDIOVASCULAR: S1, S2. LUNGS: Transmitted upper airway sounds. GI: Soft, nontender. HEMATOLOGY: Negative for Homans. PLAN: In my eye, she can probably go home. Family might want her in rehab to see how she does. Expressed cough, but she appears much better mentally and physically. She is not orthostatic anymore. We will watch her ambulating. PROGNOSIS: Guarded. Please see further orders. MMODL / IJN: [id number] /
[2024-08-02] MEDS: CEFDINIR 300 MG CAP PO SCH (12:29)
[2024-08-02 12:40] VITALS: BP 144/75; PULSE 84; RESP 16; TEMP 98.2
--- NOTE | 2024-08-03 00:07 | PN ---
PROGRESS NOTE SUBJECTIVE: The patient remains on home medications. Her orthostatics are negative. We are going to get her up ambulating. Possibly she can go home. Family wants her in the rehab center, but I do not think she really needs to go there as she is doing much better with her kidney function. GFR is up to 72. Creatinine went from 2.37 down to 0.8. White count and hemoglobin are normal. PT, OT will be given. Possible discharge home after severe dehydration and electrolyte abnormalities have been replaced. PROGNOSIS: Guarded. MMODL / IJN: [id number] /
== END 2024-08-02 14:34 | disposition home or self-care (01) ==
LOC: EC 09:10 → 4SSUR 12:09 → 5NMEDONC 15:50
PROVIDERS: ADMIT Family Medicine; ATTEND Family Medicine
DX: N17.9 Acute kidney failure, unspecified (principal); R29.6 Repeated falls; F03.90 Unspecified dementia, unspecified severity, without behavioral disturbance, psychotic disturbance, mood disturbance, and anxiety; E11.22 Type 2 diabetes mellitus with diabetic chronic kidney disease; I12.9 Hypertensive chronic kidney disease with stage 1 through stage 4 chronic kidney disease, or unspecified chronic kidney disease; N18.4 Chronic kidney disease, stage 4 (severe); E86.0 Dehydration; K21.9 Gastro-esophageal reflux disease without esophagitis; G47.30 Sleep apnea, unspecified; F32.A Depression, unspecified; F41.9 Anxiety disorder, unspecified; Z11.52 Encounter for screening for COVID-19; Z87.891 Personal history of nicotine dependence; Z86.73 Personal history of transient ischemic attack (TIA), and cerebral infarction without residual deficits; Z79.84 Long term (current) use of oral hypoglycemic drugs; Z79.890 Hormone replacement therapy; Z79.899 Other long term (current) drug therapy; Z88.0 Allergy status to penicillin; Z88.2 Allergy status to sulfonamides
CPT/HCPCS: 96374; 99285; 36415; 94640 ×5; 93005; 97162; 97166; 85379; 83880; 80053 ×3; 84443; 83735; 84484; 85025 ×3; 85610; 85730; 81001; 87636; 71046; 72125; 70450; G0378 ×5; J1171

== ENCOUNTER → 2024-10-08 | Outpatient (CLI) | payer MEDICARE, OTHER ==
[2024-10-08 11:31] VITALS: BP 103/49; PULSE 59; RESP 16; TEMP 97.5
--- NOTE | 2024-10-08 14:55 | P.PAINPG ---
PQRS Measure Charge Sheet Comment: HISTORY OF PRESENT ILLNESS: A 84 yr old female w daughter at side as a referral from Dr Garcia presents today w severe and chronic LBP > 20 yrs secondary to post laminectomy syndrome for evaluation. Pt states pain level is provoked at 8-9 /10 in intensity, constant, localized in the lumbar spine, predominantly axial, throbbing in character w occasional shooting pain towards the back of the LEs to the feet. Pain is provoked by over activity. Pain is alleviated by physician guided home stretches daily since Jul 2024, heat, medications, topical, repositioning and rest . Oswestry axial pain score at 32. PMH: OA, Angina, CVA/TIA, Dementia, NIDDM II, GERD, HTN, Hypothyroidism, Glaucoma, Eczema, MDD/ Anxiety PSH: Lumbar Laminectomy w Hardware (20 yrs ago at [place]), Glaucoma Surgery, R CTR, Ovarian Cystectomy, R Total Kne Replacement SH: Former tobacco user, Rare ETOH use, No illicit drug use FH: Non contributory All: See list Meds: See list incl Tramadol, Advil, Lidocaine REVIEW OF ORGAN SYSTEMS: CONSTITUTIONAL: No fevers or chills. No recent weight loss. NEUROLOGICAL: + numbness and tingling along the distal extremities. No seizure disorders or headaches. MUSCULOSKELETAL: + pain PSYCHIATRIC: Denies current depression or suicidal thoughts. Physical Examinations : Constitutional : Cooperative , not in acute distress . Neurologic : Cranial nerve II to XII intact. No focal neurological deficits. Psychiatric : alert & oriented x 3. Matching mood & appropriate affect. Judgment & insight intact. Musculoskeletal : Cervical Spine Motor strength in the deltoid and biceps: Normal right side. Normal Left side Motor strength biceps and the wrist extensors: Normal right side . Normal left side Motor strength in the triceps muscle: Normal right side. Normal left side Deep tendon reflexes: Normal at the biceps. Normal at Brachioradialis. Normal at triceps Vertebral body tenderness to deep palpation over Cervical facet loading test: positive bilaterally Spurling test: positive bilaterally Neck distraction test: positive bilaterally Fabby sign: positive bilaterally Lumbar spine +Incisional scars Motor strength lower extremities ,thigh and legs 5/5 Right side , 5/5 Left side Deep tendon reflexes : Normal Knee Jerk. Normal Ankle Jerk Vertebral body tenderness over L5 Garrison Test positive BL L5-S1 Lumbar facet Loading Test: positive Right / positive Left Range of motion of the lumbar spine Flexion 30 degrees, extension 10 degrees Straight Leg Raise test: Left/ Right positive at degrees Charleen test: positive right / positive left. Severe tenderness over the Sacroiliac joint on the Right / Left sides Gaenslen test: positive bilaterally Seated flexion test: positive bilaterally. Sacral spine : Severe tenderness over the Sacroiliac joint: right side / left side Range of motion: Flexion of the lumbar spine <60 degrees Range of motion: Extension of the lumbar spine <20 degrees Gaenslen's Test positive Charleen test: positive right side / left side Thigh Thrust Test Sacral Thrust Test Imaging: CT non contrast lumbar spine from 07/22/24 reviewed Assessment/ Plan : Post L4-S1 Laminectomy w Hardware Syndrome, L3-L4 retrolisthesis Recommendation of Caudal VANESA w Lysis. Risks, benefits of procedure discussed and patient verbalized understanding. Admits to anti- coagulant use or medical history of diabetes. Protocol for discontinuation/ continuation of medications vanessa procedure discussed. All questions answered. I have spent greater than 30 minutes on patient care today. Dr Tsai was available by phone for the evaluation of this patient. The time was used to review the medical records including relevant urine studies and Prescription history (MAPs), review of the available imaging, evaluation and examination of the patient, coordination of care with the medical staff and if applicable referring physicians, as well as creation of the medical record PQRS Narrative: Smoking Status Former smoker Home Medications: Ambulatory Orders PARoxetine HCL 40 mg PO HS 04/04/18 traMADol HCL 50 mg PO QID 09/14/20 Atorvastatin [Lipitor] 20 mg PO HS 04/10/22 Omeprazole 40 mg PO DAILY 04/10/22 Formoterol Fumarate [Perforomist] 20 mcg INHALATION RT-DAILY 07/30/24 Levothyroxine Sodium [Synthroid] 100 mcg PO DAILY 07/30/24 Montelukast [Singulair] 10 mg PO HS 07/30/24 QUEtiapine [SEROquel] 25 mg PO HS 07/30/24 Magnesium Oxide [Mag-Ox] 400 mg PO DAILY 90 Days #90 tab 08/01/24 Cefdinir [Omnicef] 300 mg PO BID 7 Days #14 cap 08/02/24 Controlled Substance Measures - Controlled Substance Measures Is patient prescribed a controlled substance at discharge?: Yes When asked, does pt state using other controlled substances?: Yes If prescribed controlled substance>3 days was MAPS reviewed?: Prescribed <3 Days
== END ==
LOC: PNWHC3 10:40
PROVIDERS: ATTEND Specialist
DX: M96.1 Postlaminectomy syndrome, not elsewhere classified (principal); M43.16 Spondylolisthesis, lumbar region; Z87.891 Personal history of nicotine dependence; Z88.0 Allergy status to penicillin; Z88.2 Allergy status to sulfonamides
CPT/HCPCS: 99211

== ENCOUNTER → 2024-11-03 | Day surgery (SDC) | payer MEDICARE, OTHER ==
[~2024-11-03] MED LIST changes: -ALPRAZolam 0.25 MG TAB PO PRN; -ALPRAZolam 0.5 MG TAB PO PRN; -ASPIRIN 325 MG TAB PO STA; -ATORVASTATIN 80 MG TAB PO STA; +IOPAMIDOL M200 10 ML VIAL ONE; +LACTATED RINGERS 1,000 ML IV SCH; -NITROGLYCERIN SL TABS 0.4 MG TAB SUBLINGUAL PRN; -SODIUM CHLORIDE 0.9% 1,000 ML in EMPTY BAG 1 BAG IV ONE; +methylPREDNISolone ACETATE 40 MG/ML 1 ML VIAL ONE
[2024-11-03 10:30] LABS: Glucose,Whole Blood 130 mg/dL (70-110)
[2024-11-03 10:32] VITALS: RESP 16; TEMP 97.4
--- NOTE | 2024-11-03 11:41 | P.PCN ---
Date of Procedure: 11/03/24 Procedure(s) Performed: PREOP DIAGNOSIS: 1- Lumbar postlaminectomy syndrome. 2-lumbar spinal stenosis POSTOP DIAGNOSIS:1- Lumbar postlaminectomy syndrome. 2-lumbar spinal stenosis PROCEDURE: 1-Caudal epidural steroid injection with epidurolysis and epidurogram under fluoroscopic guidance. (Fluoro images in the rad Dept ) 2-caudal epidurogram. ANESTHESIA: Lidocaine 1% 3 mL only. EBL: Minimal. PROCEDURE INDICATION: The patient with post-laminectomy syndrome with low back pain and radiculopathy radiating down in both legs, here for a caudal epidural steroid injection with epidurolysis. PROCEDURE DESCRIPTION: The patient was seen and identified in the preoperative area. Risks, benefits, complications, and alternatives were discussed with the patient. The patient agreed to proceed with the procedure and signed the consent, and vital signs were stable. Patient was taken to the OR and time out was completed. The patient was placed in the prone position on procedure table and a pillow was placed under the abdomen to reduce lumbar lordosis. The lumbosacral area was prepped and draped in the usual sterile fashion. Vital signs were closely monitored during the procedure. lateral view and the anterior-posterior plates of the sacrum were identified with infiltration of the area overlying the sacral hiatus with 1% lidocaine .A 17 gauge RK epidural needle was used to advance through the sacral hiatus into the caudal epidural space. Omnipaque 180 dye. 2cc was injected and the position of the needle was verified to be in the midline. A Racz catheter was introduced into the epidural space and was advanced towards the L5-S1 interspace under direct fluoroscopic guidance. Multiple passes were made with the catheter for lysis of epidural adhesions. Depo-Medrol 40 mg ( preservative-free ) with 3ml of preservative free Lidocaine 1% and 5 ml of preservative free normal saline was injected slowly. Additional spread was seen to L4 under fluoroscopy. The needle and the catheter were withdrawn intact. EPIDUROGRAM: Omnipaque 180 mg dye 2 ml was injected with spread of the dye into the caudal epidural space and with spread cutoff at L5 prior to epidurolysis. Post epidurolysis dye 2 ml was injected and spread was seen to L3-4.There was further spread of the solution together with the dye above the L3 COMPLICATIONS: None. DISPOSITION / PLANS: The patient was placed in a supine position and transferred to the recovery area in a stable condition for observation and was discharged from the recovery room after meeting discharge criteria. Home discharge instructions given to the patient by the staff. The patient was reexamined prior to discharge. The patient will schedule a follow up in the clinic in 2-4 weeks.
--- NOTE | 2024-11-03 11:54 | FL ---
EXAMINATION TYPE: FL guided pain mgmt statistic Intraoperative/procedural fluoroscopic services were provided. CLINICAL INDICATION:Female, 84 years old with history of PAIN; , PH FINDINGS: Fluoroscopic images demonstrating caudal injection. L4-L5 lumbar fusion hardware demonstrated. No rad iographic evidence for complication. Total fluoroscopy time is 4.9 seconds. DAP: [id number] mGym2 Please see the operative/procedural note for further details. [facility], , 11/03/2024 11:52 AM
[2024-11-03 12:01] VITALS: BP 118/64; PULSE 59
== END ==
LOC: ORPAIN 09:57
PROVIDERS: ATTEND Specialist
DX: M96.1 Postlaminectomy syndrome, not elsewhere classified (principal); M48.061 Spinal stenosis, lumbar region without neurogenic claudication; M54.16 Radiculopathy, lumbar region; H54.8 Legal blindness, as defined in USA; Z88.0 Allergy status to penicillin; Z88.2 Allergy status to sulfonamides
CPT/HCPCS: 62264; Q9966; J1010

== ENCOUNTER → 2024-12-10 | Outpatient (CLI) | payer MEDICARE, OTHER ==
[2024-12-10 11:06] VITALS: BP 126/65; PULSE 62; RESP 16; TEMP 97.3
--- NOTE | 2024-12-10 15:24 | P.PAINPG ---
PQRS Measure Charge Sheet Comment: HISTORY OF PRESENT ILLNESS: A 84 yr old wheelchair bound female w daughter at side presents today w severe and chronic LBP > 20 yrs secondary to post laminectomy syndrome for evaluation s/p Caudal VANESA w Lysis. Pt states she experienced 0 % pain relief x 5 wks s/p procedure. Pt states pain level is provoked at 8-9 /10 in intensity, constant, localized in the lumbar spine, predominantly axial, throbbing in character w occasional shooting pain towards the back of the LEs to the feet. Pain is provoked by over activity. Pain is alleviated by physician guided home stretches daily since Jul 2024, heat, medications, topical, use of a wheelchair for ambulatory assistance, repositioning and rest . Pt is wheelchair bound and has difficulty w transportation to attend formal PT sessions. Interventional procedures include Lumbar Laminectomy w Hardware (20 yrs ago at [place]), Caudal VANESA w Lysis x1 Medications include Tramadol, Advil, Lidocaine REVIEW OF ORGAN SYSTEMS: CONSTITUTIONAL: No fevers or chills. No recent weight loss. NEUROLOGICAL: + numbness and tingling along the distal extremities. No seizure disorders or headaches. MUSCULOSKELETAL: + pain PSYCHIATRIC: Denies current depression or suicidal thoughts. Physical Examinations : Constitutional : Cooperative , not in acute distress . Neurologic : Cranial nerve II to XII intact. No focal neurological deficits. Psychiatric : alert & oriented x 3. Matching mood & appropriate affect. Judgment & insight intact. Musculoskeletal : Cervical Spine Motor strength in the deltoid and biceps: Normal right side. Normal Left side Motor strength biceps and the wrist extensors: Normal right side . Normal left side Motor strength in the triceps muscle: Normal right side. Normal left side Deep tendon reflexes: Normal at the biceps. Normal at Brachioradialis. Normal at triceps Vertebral body tenderness to deep palpation over Cervical facet loading test: positive bilaterally Spurling test: positive bilaterally Neck distraction test: positive bilaterally Fabby sign: positive bilaterally Lumbar spine +Incisional scars Motor strength lower extremities ,thigh and legs 5/5 Right side , 5/5 Left side Deep tendon reflexes : Normal Knee Jerk. Normal Ankle Jerk Vertebral body tenderness over L5 Garrison Test positive BL L5-S1 Lumbar facet Loading Test: positive Right / positive Left Range of motion of the lumbar spine Flexion 30 degrees, extension 10 degrees Straight Leg Raise test: Left/ Right positive at degrees Charleen test: positive right / positive left. Severe tenderness over the Sacroiliac joint on the Right / Left sides Gaenslen test: positive bilaterally Seated flexion test: positive bilaterally. Sacral spine : Severe tenderness over the Sacroiliac joint: right side / left side Range of motion: Flexion of the lumbar spine <60 degrees Range of motion: Extension of the lumbar spine <20 degrees Gaenslen's Test positive Charleen test: positive right side / left side Thigh Thrust Test Sacral Thrust Test Imaging: CT non contrast lumbar spine from 07/22/24 reviewed Assessment/ Plan : Post L4-S1 Laminectomy w Hardware Syndrome, L3-L4 retrolisthesis Recommendation of BL TFESI L5-S1 #1. Risks, benefits of procedure discussed and patient verbalized understanding. Admits to anti- coagulant use or medical history of diabetes. Protocol for discontinuation/ continuation of medications vanessa procedure discussed. All questions answered. I have spent greater than 30 minutes on patient care today. Dr Tsai was available by phone for the evaluation of this patient. The time was used to review the medical records including relevant urine studies and Prescription history (MAPs), review of the available imaging, evaluation and examination of the patient, coordination of care with the medical staff and if applicable referring physicians, as well as creation of the medical record - Pain Location Bilateral Lower Back Non-Pharmacological Interventions: Physical Therapy, Position/Reposition, Relaxation Technique, Sitting, TENS Unit Pharmacological Interventions: Epidural, PRN Medication, Scheduled Medication, Topical Medication PQRS Narrative: Smoking Status Former smoker Hx Alcohol Use (MH) No Home Medications: Ambulatory Orders PARoxetine HCL 40 mg PO HS 04/04/18 Atorvastatin [Lipitor] 20 mg PO HS 04/10/22 Omeprazole 40 mg PO DAILY 04/10/22 Formoterol Fumarate [Perforomist] 20 mcg INHALATION RT-DAILY 07/30/24 Levothyroxine Sodium [Synthroid] 75 mcg PO DAILY 07/30/24 Montelukast [Singulair] 10 mg PO HS 07/30/24 QUEtiapine [SEROquel] 50 mg PO HS 07/30/24 Magnesium Oxide [Mag-Ox] 400 mg PO DAILY 90 Days #90 tab 08/01/24 diazePAM [Valium] 5 mg PO DAILY 1 Days #2 tab 10/08/24 B12 (Unk) 1 tab PO DAILY 10/30/24 [place] (Unk) 1 tab PO DAILY 10/30/24 Furosemide [Lasix] 20 mg PO Q48H 10/30/24 HYDROcodone/APAP 5-325MG [[place] 5-325] 1 tab PO BID 10/30/24 Mamanatine 5 mg PO BID 10/30/24 [place] (Unk) 1 tab PO DAILY 10/30/24 amLODIPine BESYLATE 5 mg PO DAILY 10/30/24 Controlled Substance Measures - Controlled Substance Measures Is patient prescribed a controlled substance at discharge?: No
== END | disposition home or self-care (01) ==
LOC: PNWHC3 10:33
PROVIDERS: ATTEND Specialist
DX: M43.16 Spondylolisthesis, lumbar region (principal); M96.1 Postlaminectomy syndrome, not elsewhere classified; Z88.0 Allergy status to penicillin; Z88.5 Allergy status to narcotic agent; Z88.2 Allergy status to sulfonamides; Z98.890 Other specified postprocedural states; Z87.891 Personal history of nicotine dependence
CPT/HCPCS: 99211

== ENCOUNTER → 2025-02-11 | Outpatient (CLI) | payer MEDICARE, OTHER ==
[2025-02-11 16:21] LABS: ALT 17 U/L (8-44); AST 18 U/L (13-35); Albumin 4.1 g/dL (3.8-4.9); Albumin/Globulin Ratio 1.78 Ratio (1.60-3.17); Alkaline Phosphatase 98 U/L (41-126); Anion Gap 13.70 mmol/L (4.00-12.00); BUN/Creat Ratio 22.00 Ratio (12.00-20.00); Blood Urea Nitrogen 22.0 mg/dL (9.0-27.0); Calcium 9.3 mg/dL (8.7-10.3); Carbon Dioxide 25.3 mmol/L (21.6-31.8); Chloride 100 mmol/L (96-109); Cholesterol 179.00 mg/dL (0.00-200.00); Globulin 2.3 g/dL (1.6-3.3); Glucose 86 mg/dL (70-110); HDL Cholesterol 81.50 mg/dL (40.00-60.00); LDL Cholesterol,Calculated 73.7 mg/dL (0.0-131.0); Potassium 4.6 mmol/L (3.5-5.5); Sodium 139 mmol/L (135-145); Total Protein 6.4 g/dL (6.2-8.2); Triglycerides 119.00 mg/dL (0.00-149.00); VLDL Calculation 23.80 mg/dL (5.00-40.00)
== END | disposition home or self-care (01) ==
LOC: LABWHC1 09:49
PROVIDERS: ATTEND Family Medicine
DX: Z00.00 Encounter for general adult medical examination without abnormal findings (principal); I10 Essential (primary) hypertension; E11.9 Type 2 diabetes mellitus without complications; Z79.899 Other long term (current) drug therapy
CPT/HCPCS: 36415; 80053; 80061; 83036; 84443; 85025

== ENCOUNTER → 2025-02-24 | Outpatient (CLI) | payer MEDICARE, OTHER ==
[2025-02-24 15:26] LABS: Basophils # (A) 0.02 X 10*3/uL (0.00-0.10); Basophils % (A) 0.3 %; Eosinophils # (A) 0.12 X 10*3/uL (0.04-0.35); Eosinophils % (A) 1.9 %; HCT 37.0 % (37.2-46.3); HGB 12.1 g/dL (12.0-15.0); Immature Grans, Automated 0.50 %; Lymphocytes # (A) 1.87 X 10*3/uL (0.90-5.00); Lymphocytes % (A) 30.0 %; MCH 29.4 pg (27.0-32.0); MCHC 32.7 g/dL (32.0-37.0); MCV 90.0 FL (80.0-97.0); Monocytes # (A) 0.61 X 10*3/uL (0.20-1.00); Monocytes % (A) 9.8 %; NRBC Per 100 WBC 0 X 10*3/uL (0.00-0.01); Neutrophils # (A) 3.59 X 10*3/uL (1.80-7.70); Neutrophils % (A) 57.5 %; Platelet Count 241 X 10*3/uL (140-440); RBC 4.11 X 10*6/uL (4.10-5.20); RDW 15.4 % (11.5-14.5); WBC 6.24 X 10*3/uL (4.50-10.00)
== END | disposition home or self-care (01) ==
LOC: LABWHC1 10:28
PROVIDERS: ATTEND Family Medicine
DX: Z00.00 Encounter for general adult medical examination without abnormal findings (principal); I10 Essential (primary) hypertension; E11.9 Type 2 diabetes mellitus without complications; Z79.899 Other long term (current) drug therapy
CPT/HCPCS: 36415; 85025